=== PATIENT | female | born 1955 | race Caucasian/White ===

== ENCOUNTER 2019-09-01 11:03 | Inpatient (IN) | payer MEDICAID ==
[~2019-09-01] VITALS: Ht 152.4 cm; Wt 61.4 kg
[2019-09-01] MEDS ORDERED: FURO80 PO (11:45)
[2019-09-01] MEDS ORDERED: OLAN10TA3 PO (11:45)
[2019-09-01] MEDS ORDERED: TRAZ150 PO (11:45)
[2019-09-01 12:34] LABS: BASOPHILS % (AUTO) 1.7 % (0.0-2.0); EOSINOPHILS % (AUTO) 2.8 % (1.0-6.0); HEMATOCRIT 33.6 % (36-46); LYMPHOCYTES % (AUTO) 39.3 % (22.0-44.0); MEAN CORPUSCULAR HEMOGLOBIN 33.1 pg (26.0-34.0); MEAN CORPUSCULAR HGB CONC 32.6 G/dL (31.0-37.0); MEAN CORPUSCULAR VOLUME 101 fL (80-100); MONOCYTES # (AUTO) 0.5 K/uL (0.1-1.0); MONOCYTES % (AUTO) 8.8 % (2.0-9.0); NEUTROPHILS # (AUTO) 2.5 K/uL (1.8-7.7); NEUTROPHILS % (AUTO) 47.4 % (40.0-70.0); PLATELET COUNT (AUTO) 363 K/uL (150-450); RED BLOOD CELL COUNT(AUTO) 3.31 MIL/uL (4.00-5.20); RED CELL DISTRIBUTION WIDTH 17.5 % (11.5-14.5)
[2019-09-01 12:52] LABS: ANION GAP 7 mmol/L (8-16); CALCIUM, TOTAL 8.8 mg/dL (8.8-10.5); CARBON DIOXIDE 27 mmol/L (22-29); CHLORIDE 109 mmol/L (98-107); CREATININE 0.48 mg/dL (0.60-1.30); GLOMERULAR FILTR. RATE CALC > 60 mL/min (>60); GLUCOSE,RANDOM 79 mg/dL (70-110); SODIUM SERUM 143 mmol/L (136-145); UREA NITROGEN, BLOOD 8 mg/dL (7-18)
[2019-09-01 12:58] LABS: ALANINE AMINOTRANSFERASE 33 U/L (12-78); ALBUMIN 2.8 g/dL (3.4-5.0); ALKALINE PHOSPHATASE 146 U/L (46-116); ASPARTATE AMINOTRANSFERASE 43 U/L (15-37); BILIRUBIN,TOTAL 0.2 mg/dL (0.1-1.0); TOTAL PROTEIN, SERUM 6.7 g/dL (6.4-8.2)
[2019-09-01] MEDS ORDERED: IBUPROFEN 600 MG TABLET PO ONE (14:15)
[2019-09-01] MEDS ORDERED: PENICILLIN V POTASSIUM 500 MG TABLET PO ONE (14:15)
[2019-09-01 15:04] LABS: AMPHET/METH SCREEN,URINE NEGATIVE (NEGATIVE); BARBITURATE SCREEN, URINE NEGATIVE (NEGATIVE); BENZODIAZEPINES SCREEN,URINE NEGATIVE (NEGATIVE); CANNABINOID SCREEN,URINE NEGATIVE (NEGATIVE); COCAINE SCREEN,URINE NEGATIVE (NEGATIVE); METHADONE SCREEN, URINE NEGATIVE (NEGATIVE); OPIATE SCREEN,URINE NEGATIVE (NEGATIVE)
[2019-09-01 15:22] LABS: PHENCYCLIDINE SCREEN,URINE NEGATIVE (NEGATIVE)
[2019-09-01] MEDS ORDERED: HALOPERIDOL 5 MG TABLET PO PRN (15:30)
[2019-09-01] MEDS: LORazepam 2 MG TABLET PO PRN (17:20)
[2019-09-01 17:53] VITALS: BP 142/65
[2019-09-01 17:56] VITALS: BP 142/65
[2019-09-01] MEDS ORDERED: IBUPROFEN 600 MG TABLET PO PRN (21:00)
[2019-09-01] MEDS ORDERED: BACITRACIN 28.4 GM OINTMENT TP PRN (21:00)
[2019-09-01] MEDS ORDERED: PETROLATUM,WHITE 28 GM JELLY TP PRN (21:00)
[2019-09-01] MEDS ORDERED: ALBUTEROL SULFATE HFA 90 MCG/PUFF 8 GM INHALER IH PRN (21:00)
[2019-09-01] MEDS ORDERED: BENZOCAINE/MENTHOL LOZENGE MM PRN (21:00)
[2019-09-01] MEDS ORDERED: CloNIDine HCL 0.1 MG TABLET PO PRN (21:00)
[2019-09-01] MEDS ORDERED: MAGNESIUM HYDROXIDE SUSPENSION 30 ML UDCUP PO PRN (21:00)
[2019-09-01] MEDS ORDERED: MAG HYDROX/AL HYDROX/SIMETH ES 30 ML SUSPENSION UDCUP PO PRN (21:00)
[2019-09-01] MEDS ORDERED: ONDANSETRON HCL 4 MG TABLET PO PRN (21:00)
[2019-09-01 21:06] VITALS: BP 100/60
[2019-09-02] MEDS: LOPERAMIDE HCL 2 MG CAPSULE PO PRN ×4 (00:28→16:50)
[2019-09-02] MEDS: ZOLPIDEM TARTRATE 10 MG TABLET PO PRN ×2 (00:28→22:44)
[2019-09-02] MEDS ORDERED: INFLUENZA VIRUS VACCINE QVS 2019-20 (3YR+)/PF 60 MCG/0.5 ML SYRINGE IM ONE (00:45)
[2019-09-02 02:09] VITALS: BP 118/70
[2019-09-02 08:17] VITALS: BP 118/71
[2019-09-02] MEDS: LORazepam 2 MG TABLET PO PRN ×4 (08:26→21:22)
[2019-09-02] MEDS: OMEPRAZOLE 20 MG CAPSULE PO SCH (08:27)
[2019-09-02] MEDS ORDERED: DOCUSATE SODIUM 100 MG CAPSULE PO PRN (09:00)
[2019-09-02] MEDS ORDERED: FUROSEMIDE 80 MG TABLET PO SCH (09:00)
[2019-09-02] MEDS ORDERED: DOCUSATE SODIUM 100 MG CAPSULE PO SCH (09:00)
[2019-09-02] MEDS: NICOTINE 21 MG/24 HOUR PATCH TD SCH (09:33)
[2019-09-02] MEDS: ACETAMINOPHEN 325 MG TABLET PO PRN ×2 (09:34→16:50)
[2019-09-02] MEDS ORDERED: FUROSEMIDE 40 MG TABLET PO SCH (09:55)
[2019-09-02 10:03] VITALS: BP 118/71
[2019-09-02] MEDS: FUROSEMIDE 40 MG TABLET PO SCH ×2 (12:48→16:50)
[2019-09-02 14:38] VITALS: BP 110/72
[2019-09-02 18:03] VITALS: BP 116/76
[2019-09-02] MEDS: TraZODone HCL 150 MG TABLET PO SCH (21:03)
[2019-09-02] MEDS: OLANZapine 10 MG TABLET PO SCH (21:03)
[2019-09-03] MEDS: LORazepam 2 MG TABLET PO PRN ×5 (03:07→23:16)
[2019-09-03 03:54] VITALS: BP 112/74
[2019-09-03] MEDS: OMEPRAZOLE 20 MG CAPSULE PO SCH (08:58)
[2019-09-03] MEDS: FUROSEMIDE 40 MG TABLET PO SCH ×2 (08:58→17:41)
[2019-09-03] MEDS: NICOTINE 21 MG/24 HOUR PATCH TD SCH (08:59)
[2019-09-03 16:11] VITALS: BP 110/64
[2019-09-03] MEDS: LOPERAMIDE HCL 2 MG CAPSULE PO PRN (17:36)
[2019-09-03] MEDS: TraZODone HCL 150 MG TABLET PO SCH (21:00)
[2019-09-03] MEDS: ZOLPIDEM TARTRATE 10 MG TABLET PO PRN (21:51)
[2019-09-03] MEDS: OLANZapine 10 MG TABLET PO SCH (21:51)
[2019-09-04 05:20] VITALS: BP 100/62
[2019-09-04] MEDS: ACETAMINOPHEN 325 MG TABLET PO PRN (06:54)
[2019-09-04 08:10] VITALS: BP 120/67
[2019-09-04] MEDS: NICOTINE 21 MG/24 HOUR PATCH TD SCH (09:37)
[2019-09-04] MEDS: OMEPRAZOLE 20 MG CAPSULE PO SCH (09:37)
[2019-09-04] MEDS: LORazepam 2 MG TABLET PO PRN ×2 (09:37→13:41)
[2019-09-04] MEDS: FUROSEMIDE 40 MG TABLET PO SCH ×2 (09:37→16:45)
[2019-09-04] MEDS ORDERED: OLAN10TA3 PO (16:32)
[2019-09-04 16:33] VITALS: BP 126/71
[2019-09-04] MEDS ORDERED: FURO40 PO (16:36)
[2019-09-04] MEDS ORDERED: OMEP20 PO (16:37)
[2019-09-04] MEDS: LOPERAMIDE HCL 2 MG CAPSULE PO PRN (16:45)
== END 2019-09-04 17:32 | disposition home or self-care (01) | DRG 750 ==
LOC: EMS 11:06 → B2S 16:03 → B3A 16:56
PROVIDERS: ADMIT Psychiatry & Neurology Psychiatry; ATTEND Psychiatry & Neurology Psychiatry
DX: F25.9 Schizoaffective disorder, unspecified (principal); R45.851 Suicidal ideations; F31.9 Bipolar disorder, unspecified; F10.10 Alcohol abuse, uncomplicated; F41.9 Anxiety disorder, unspecified; G47.00 Insomnia, unspecified; F17.210 Nicotine dependence, cigarettes, uncomplicated; K59.00 Constipation, unspecified; S01.511A Laceration without foreign body of lip, initial encounter; W19.XXXA Unspecified fall, initial encounter; Y93.89 Activity, other specified; Y92.89 Other specified places as the place of occurrence of the external cause; Y99.8 Other external cause status
CPT/HCPCS: 70450; G0480

== ENCOUNTER 2019-09-15 21:18 | Emergency (ER) | payer MEDICAID ==
[~2019-09-15] VITALS: Ht 154.9 cm; Wt 54.5 kg
[~2019-09-15 21:18] MED LIST: FURO40 PO; OLAN10TA3 PO; OMEP20 PO; TRAZ150 PO
[2019-09-16] MEDS ORDERED: LIDOCAINE 5% TRANSDERMAL PATCH TD ONE (00:15)
[2019-09-16] MEDS ORDERED: ACETAMINOPHEN 325 MG TABLET PO ONE (00:15)
[2019-09-16] MEDS ORDERED: ASPIRIN 325 MG TABLET PO ONE (00:15)
[2019-09-16] MEDS ORDERED: GABAPENTIN 100 MG CAPSULE PO ONE (00:15)
[2019-09-16 00:46] LABS: BASOPHILS % (AUTO) 0.7 % (0.0-2.0); EOSINOPHILS % (AUTO) 5.6 % (1.0-6.0); HEMATOCRIT 27.2 % (36-46); HEMOGLOBIN 8.7 g/dL (12.0-16.0); LYMPHOCYTES # (AUTO) 1.8 K/uL (1.0-4.8); LYMPHOCYTES % (AUTO) 22.3 % (22.0-44.0); MEAN CORPUSCULAR HEMOGLOBIN 30.8 pg (26.0-34.0); MEAN CORPUSCULAR HGB CONC 31.9 G/dL (31.0-37.0); MEAN CORPUSCULAR VOLUME 97 fL (80-100); MONOCYTES # (AUTO) 0.5 K/uL (0.1-1.0); MONOCYTES % (AUTO) 6.5 % (2.0-9.0); NEUTROPHILS # (AUTO) 5.2 K/uL (1.8-7.7); NEUTROPHILS % (AUTO) 64.9 % (40.0-70.0); PLATELET COUNT (AUTO) 272 K/uL (150-450); RED BLOOD CELL COUNT(AUTO) 2.81 MIL/uL (4.00-5.20); RED CELL DISTRIBUTION WIDTH 18.1 % (11.5-14.5)
[2019-09-16 00:53] LABS: ANION GAP 8 mmol/L (8-16); CALCIUM, TOTAL 8.4 mg/dL (8.8-10.5); CARBON DIOXIDE 25 mmol/L (22-29); CHLORIDE 109 mmol/L (98-107); CREATININE 0.74 mg/dL (0.60-1.30); GLOMERULAR FILTR. RATE CALC > 60 mL/min (>60); GLUCOSE,RANDOM 123 mg/dL (70-110); POTASSIUM 3.8 mmol/L (3.5-5.1); SODIUM SERUM 142 mmol/L (136-145); UREA NITROGEN, BLOOD 9 mg/dL (7-18)
[2019-09-16 01:00] LABS: ALANINE AMINOTRANSFERASE 26 U/L (12-78); ALBUMIN 2.7 g/dL (3.4-5.0); ALKALINE PHOSPHATASE 124 U/L (46-116); ASPARTATE AMINOTRANSFERASE 36 U/L (15-37); BILIRUBIN,TOTAL 0.1 mg/dL (0.1-1.0)
[2019-09-16 01:01] LABS: B-TYPE NATRIURETIC PEPTIDE 215 pg/mL (0-100)
[2019-09-16 02:16] VITALS: BP 142/87
== END 2019-09-16 02:21 | disposition home or self-care (01) ==
LOC: EMS 21:18
DX: R07.9 Chest pain, unspecified (principal); F31.9 Bipolar disorder, unspecified; F17.210 Nicotine dependence, cigarettes, uncomplicated; Z79.899 Other long term (current) drug therapy
CPT/HCPCS: 93005

== ENCOUNTER 2019-09-20 20:16 | Inpatient (IN) | payer MEDICAID ==
[~2019-09-20] VITALS: Ht 152.4 cm; Wt 60.1 kg
[2019-09-20 22:35] LABS: BASOPHILS % (AUTO) 0.5 % (0.0-2.0); EOSINOPHILS % (AUTO) 2.8 % (1.0-6.0); HEMATOCRIT 29.4 % (36-46); HEMOGLOBIN 9.6 g/dL (12.0-16.0); LYMPHOCYTES # (AUTO) 1.9 K/uL (1.0-4.8); LYMPHOCYTES % (AUTO) 17.4 % (22.0-44.0); MEAN CORPUSCULAR HEMOGLOBIN 30.8 pg (26.0-34.0); MEAN CORPUSCULAR HGB CONC 32.8 G/dL (31.0-37.0); MEAN CORPUSCULAR VOLUME 94 fL (80-100); NEUTROPHILS # (AUTO) 7.7 K/uL (1.8-7.7); NEUTROPHILS % (AUTO) 70.3 % (40.0-70.0); PLATELET COUNT (AUTO) 322 K/uL (150-450); RED BLOOD CELL COUNT(AUTO) 3.13 MIL/uL (4.00-5.20); RED CELL DISTRIBUTION WIDTH 18.5 % (11.5-14.5)
[2019-09-20] MEDS ORDERED: ATOR20TA86 PO (22:37)
[2019-09-20] MEDS ORDERED: GABA-531 PO ×2 (22:37)
[2019-09-20] MEDS ORDERED: IBUP-1506 PO (22:37)
[2019-09-20] MEDS ORDERED: HYD25 PO (22:37)
[2019-09-20 22:50] LABS: ALANINE AMINOTRANSFERASE 20 U/L (12-78); ALBUMIN 3.3 g/dL (3.4-5.0); ALKALINE PHOSPHATASE 141 U/L (46-116); ANION GAP 5 mmol/L (8-16); ASPARTATE AMINOTRANSFERASE 16 U/L (15-37); BILIRUBIN,TOTAL 0.3 mg/dL (0.1-1.0); CALCIUM, TOTAL 8.6 mg/dL (8.8-10.5); CARBON DIOXIDE 32 mmol/L (22-29); CHLORIDE 99 mmol/L (98-107); CREATININE 0.68 mg/dL (0.60-1.30); GLOMERULAR FILTR. RATE CALC > 60 mL/min (>60); GLUCOSE,RANDOM 103 mg/dL (70-110); POTASSIUM 3.3 mmol/L (3.5-5.1); SODIUM SERUM 136 mmol/L (136-145); TOTAL PROTEIN, SERUM 7.1 g/dL (6.4-8.2); UREA NITROGEN, BLOOD 13 mg/dL (7-18)
[2019-09-20 23:14] LABS: AMPHET/METH SCREEN,URINE NEGATIVE (NEGATIVE); BARBITURATE SCREEN, URINE NEGATIVE (NEGATIVE); BENZODIAZEPINES SCREEN,URINE NEGATIVE (NEGATIVE); CANNABINOID SCREEN,URINE NEGATIVE (NEGATIVE); COCAINE SCREEN,URINE NEGATIVE (NEGATIVE); METHADONE SCREEN, URINE NEGATIVE (NEGATIVE); OPIATE SCREEN,URINE NEGATIVE (NEGATIVE); PHENCYCLIDINE SCREEN,URINE NEGATIVE (NEGATIVE)
[2019-09-21] MEDS ORDERED: GABAPENTIN 300 MG CAPSULE PO ONE (01:00)
[2019-09-21] MEDS: LORazepam 2 MG TABLET PO PRN ×4 (01:06→23:52)
[2019-09-21] MEDS: HALOPERIDOL 5 MG TABLET PO PRN ×3 (01:06→23:53)
[2019-09-21] MEDS: ZOLPIDEM TARTRATE 10 MG TABLET PO PRN ×2 (01:06→20:05)
[2019-09-21 03:05] LABS: APPEARANCE,URINE CLEAR (CLEAR); BILIRUBIN,URINE NEGATIVE (NEGATIVE); GLUCOSE, URINE (UA) NEGATIVE (NEGATIVE); KETONES,URINE NEGATIVE (NEGATIVE); LEUKOCYTE ESTERASE ,URINE TRACE (NEGATIVE); NITRATE,URINE NEGATIVE (NEGATIVE); OCCULT BLOOD,URINE NEGATIVE (NEGATIVE); PH,URINE 6.5 (5.0-8.0); PROTEIN,URINE NEGATIVE (NEGATIVE); UROBILINOGEN,URINE 0.2 mg/dL (<=1.0)
[2019-09-21 03:11] LABS: BACTERIA,URINE None Seen /HPF (None Seen); RBC,URINE None Seen /HPF (0-2); SQUAMOUS EPITHELIAL CELL,UR Rare /LPF (None Seen)
[2019-09-21 03:23] VITALS: BP 124/79
[2019-09-21] MEDS ORDERED: LOPERAMIDE HCL 2 MG CAPSULE PO PRN (08:15)
[2019-09-21] MEDS ORDERED: CloNIDine HCL 0.1 MG TABLET PO PRN (08:15)
[2019-09-21] MEDS ORDERED: ONDANSETRON HCL 4 MG TABLET PO PRN (08:15)
[2019-09-21] MEDS ORDERED: BACITRACIN 28.4 GM OINTMENT TP PRN (08:15)
[2019-09-21] MEDS ORDERED: ACETAMINOPHEN 325 MG TABLET PO PRN (08:15)
[2019-09-21] MEDS ORDERED: PETROLATUM,WHITE 28 GM JELLY TP PRN (08:15)
[2019-09-21] MEDS ORDERED: ALBUTEROL SULFATE HFA 90 MCG/PUFF 8 GM INHALER IH PRN (08:15)
[2019-09-21] MEDS ORDERED: MAG HYDROX/AL HYDROX/SIMETH ES 30 ML SUSPENSION UDCUP PO PRN (08:15)
[2019-09-21] MEDS ORDERED: BENZOCAINE/MENTHOL LOZENGE MM PRN (08:15)
[2019-09-21] MEDS ORDERED: MAGNESIUM HYDROXIDE SUSPENSION 30 ML UDCUP PO PRN (08:15)
[2019-09-21] MEDS: GABAPENTIN 300 MG CAPSULE PO SCH ×3 (09:12→16:01)
[2019-09-21] MEDS: DOCUSATE SODIUM 100 MG CAPSULE PO SCH (09:12)
[2019-09-21] MEDS: FUROSEMIDE 20 MG TABLET PO SCH (09:13)
[2019-09-21] MEDS: OMEPRAZOLE 20 MG CAPSULE PO SCH (09:13)
[2019-09-21 09:21] VITALS: BP 134/70
[2019-09-21] MEDS: NICOTINE 21 MG/24 HOUR PATCH TD SCH (10:30)
[2019-09-21] MEDS: POTASSIUM CHLORIDE 20 MEQ ER TABLET PO SCH (16:01)
[2019-09-21 16:27] VITALS: BP 128/72
[2019-09-21] MEDS: IBUPROFEN 600 MG TABLET PO PRN (16:39)
[2019-09-21] MEDS: BACITRACIN 28.4 GM OINTMENT TP SCH (18:00)
[2019-09-21] MEDS: ATORVASTATIN CALCIUM 20 MG TABLET PO SCH (20:02)
[2019-09-21] MEDS: TraZODone HCL 150 MG TABLET PO SCH (21:48)
[2019-09-21] MEDS: OLANZapine 10 MG TABLET PO SCH (21:48)
[2019-09-22 01:30] VITALS: BP 128/77
[2019-09-22 08:50] LABS: CHOL/HDL RATIO 2.4 (3.9-5.7)
[2019-09-22] MEDS: GABAPENTIN 300 MG CAPSULE PO SCH ×3 (09:21→16:10)
[2019-09-22] MEDS: DOCUSATE SODIUM 100 MG CAPSULE PO SCH (09:21)
[2019-09-22] MEDS: FUROSEMIDE 20 MG TABLET PO SCH (09:21)
[2019-09-22] MEDS: POTASSIUM CHLORIDE 20 MEQ ER TABLET PO SCH (09:23)
[2019-09-22] MEDS: NICOTINE 21 MG/24 HOUR PATCH TD SCH (09:23)
[2019-09-22] MEDS: MULTIVITAMINS WITH IRON TABLET PO SCH (09:23)
[2019-09-22] MEDS: BACITRACIN 28.4 GM OINTMENT TP SCH ×2 (09:23→16:11)
[2019-09-22] MEDS: OMEPRAZOLE 20 MG CAPSULE PO SCH (09:23)
[2019-09-22 12:01] VITALS: BP 124/65
[2019-09-22] MEDS: MUPIROCIN CALCIUM 2% 22 GM OINTMENT NASAL SCH (16:10)
[2019-09-22] MEDS: IBUPROFEN 600 MG TABLET PO PRN (16:26)
[2019-09-22 16:31] VITALS: BP 95/60
[2019-09-22 17:00] VITALS: BP 133/88
[2019-09-22] MEDS: LORazepam 2 MG TABLET PO PRN ×2 (17:16→21:51)
[2019-09-22] MEDS: TraZODone HCL 150 MG TABLET PO SCH (20:24)
[2019-09-22] MEDS: OLANZapine 10 MG TABLET PO SCH (20:24)
[2019-09-22] MEDS: ATORVASTATIN CALCIUM 20 MG TABLET PO SCH (20:24)
[2019-09-23] MEDS: ZOLPIDEM TARTRATE 10 MG TABLET PO PRN (00:11)
[2019-09-23] MEDS: HALOPERIDOL 5 MG TABLET PO PRN (00:12)
[2019-09-23] MEDS: MULTIVITAMINS WITH IRON TABLET PO SCH (08:13)
[2019-09-23] MEDS: GABAPENTIN 300 MG CAPSULE PO SCH ×2 (08:13→12:39)
[2019-09-23] MEDS: DOCUSATE SODIUM 100 MG CAPSULE PO SCH (08:13)
[2019-09-23] MEDS: FUROSEMIDE 20 MG TABLET PO SCH (08:13)
[2019-09-23] MEDS: OMEPRAZOLE 20 MG CAPSULE PO SCH (08:13)
[2019-09-23] MEDS: NICOTINE 21 MG/24 HOUR PATCH TD SCH (08:15)
[2019-09-23] MEDS: BACITRACIN 28.4 GM OINTMENT TP SCH (08:15)
[2019-09-23] MEDS: MUPIROCIN CALCIUM 2% 22 GM OINTMENT NASAL SCH (08:16)
[2019-09-23 11:53] VITALS: BP 102/68
[2019-09-23] MEDS: IBUPROFEN 600 MG TABLET PO PRN (11:53)
[2019-09-23] MEDS: LORazepam 2 MG TABLET PO PRN (12:40)
[2019-09-23 13:05] VITALS: BP 102/68
[2019-09-23] MEDS ORDERED: DOCU-275 PO (13:48)
[2019-09-23] MEDS ORDERED: MULT-1239 PO (13:48)
[2019-09-23] MEDS ORDERED: BACI500P3 TP (13:48)
[2019-09-23] MEDS ORDERED: MUPI15CR12 TP (13:48)
== END 2019-09-23 15:51 | disposition home or self-care (01) | DRG 885 ==
LOC: EMS 20:16 → 5N 09-21 01:30 → UNDOADMIN 09-21 01:30 → 3EI 09-21 01:30
PROVIDERS: ADMIT Psychiatry & Neurology Psychiatry; ATTEND Psychiatry & Neurology Psychiatry
DX: F25.9 Schizoaffective disorder, unspecified (principal); R45.851 Suicidal ideations; F41.9 Anxiety disorder, unspecified; G47.00 Insomnia, unspecified; I10 Essential (primary) hypertension; K59.00 Constipation, unspecified; F17.210 Nicotine dependence, cigarettes, uncomplicated; F32.9 Major depressive disorder, single episode, unspecified; Z79.899 Other long term (current) drug therapy; Z22.322 Carrier or suspected carrier of Methicillin resistant Staphylococcus aureus
CPT/HCPCS: 84132; 87081; G0480

== ENCOUNTER 2019-11-14 17:15 | Emergency (ER) | payer MEDICAID ==
[~2019-11-14] VITALS: Ht 152.4 cm; Wt 59.1 kg
[~2019-11-14 17:15] MED LIST changes: +ATOR20TA86 PO; +BACI500P3 TP; +DOCU-275 PO; +GABA-1181 PO; +MULT-1239 PO; +MUPI15CR12 TP
[2019-11-14] MEDS ORDERED: LORazepam 1 MG TABLET PO ONE (17:45)
[2019-11-14] MEDS ORDERED: FURO20 PO (17:49)
[2019-11-14 18:08] LABS: BASOPHILS % (AUTO) 0.7 % (0.0-2.0); EOSINOPHILS % (AUTO) 2.7 % (1.0-6.0); HEMOGLOBIN 11.3 g/dL (12.0-16.0); LYMPHOCYTES # (AUTO) 1.4 K/uL (1.0-4.8); LYMPHOCYTES % (AUTO) 23.5 % (22.0-44.0); MEAN CORPUSCULAR HGB CONC 32.4 G/dL (31.0-37.0); MEAN CORPUSCULAR VOLUME 86 fL (80-100); MONOCYTES # (AUTO) 0.5 K/uL (0.1-1.0); MONOCYTES % (AUTO) 8.4 % (2.0-9.0); NEUTROPHILS # (AUTO) 3.9 K/uL (1.8-7.7); NEUTROPHILS % (AUTO) 64.7 % (40.0-70.0); PLATELET COUNT (AUTO) 263 K/uL (150-450); RED BLOOD CELL COUNT(AUTO) 4.06 MIL/uL (4.00-5.20)
[2019-11-14 18:19] LABS: ANION GAP 14 mmol/L (8-16); CALCIUM, TOTAL 9.4 mg/dL (8.8-10.5); CARBON DIOXIDE 20 mmol/L (22-29); CHLORIDE 104 mmol/L (98-107); CREATININE 0.69 mg/dL (0.60-1.30); GLOMERULAR FILTR. RATE CALC > 60 mL/min (>60); GLUCOSE,RANDOM 101 mg/dL (70-110); POTASSIUM 3.2 mmol/L (3.5-5.1); SODIUM SERUM 138 mmol/L (136-145); UREA NITROGEN, BLOOD 7 mg/dL (7-18)
[2019-11-14 18:21] LABS: AMPHET/METH SCREEN,URINE NEGATIVE (NEGATIVE); BARBITURATE SCREEN, URINE NEGATIVE (NEGATIVE); BENZODIAZEPINES SCREEN,URINE NEGATIVE (NEGATIVE); CANNABINOID SCREEN,URINE NEGATIVE (NEGATIVE); COCAINE SCREEN,URINE NEGATIVE (NEGATIVE); METHADONE SCREEN, URINE NEGATIVE (NEGATIVE); OPIATE SCREEN,URINE NEGATIVE (NEGATIVE)
[2019-11-14 18:22] LABS: PHENCYCLIDINE SCREEN,URINE NEGATIVE (NEGATIVE)
[2019-11-14 18:24] LABS: ALANINE AMINOTRANSFERASE 18 U/L (12-78); ALBUMIN 3.8 g/dL (3.4-5.0); ALKALINE PHOSPHATASE 86 U/L (46-116); ASPARTATE AMINOTRANSFERASE 18 U/L (15-37); BILIRUBIN,TOTAL 0.3 mg/dL (0.1-1.0); TOTAL PROTEIN, SERUM 6.9 g/dL (6.4-8.2)
[2019-11-14] MEDS ORDERED: POTASSIUM CHLORIDE 20 MEQ ER TABLET PO ONE ×2 (19:00→19:45)
[2019-11-14 20:00] VITALS: BP 127/63
== END 2019-11-14 20:35 | disposition home or self-care (01) ==
LOC: EMS 17:16
DX: F41.9 Anxiety disorder, unspecified (principal); F31.9 Bipolar disorder, unspecified; F17.210 Nicotine dependence, cigarettes, uncomplicated; I10 Essential (primary) hypertension; Z79.899 Other long term (current) drug therapy
CPT/HCPCS: 36415; 80053; 80307; 85025; 99284; G0480

== ENCOUNTER 2022-03-19 06:52 | Emergency (ER) | payer MEDICAID ==
[~2022-03-19] VITALS: Ht 152.4 cm; Wt 60.2 kg
[~2022-03-19 06:52] MED LIST changes: -DOCU-275 PO; +DOCU-385 PO; +FURO20 PO; -FURO40 PO; -MUPI15CR12 TP; -OLAN10TA3 PO; +OLAN10TA74 PO; -TRAZ150 PO; +TRAZ150T80 PO
[2022-03-19] MEDS ORDERED: CHLO10TA19 PO (07:30)
[2022-03-19] MEDS ORDERED: LEVO125 PO (07:30)
[2022-03-19] MEDS ORDERED: CITA-144 PO (07:30)
[2022-03-19 08:10] LABS: BASOPHILS % (AUTO) 0.7 % (0.0-2.0); EOSINOPHILS % (AUTO) 1.5 % (1.0-6.0); HEMATOCRIT 43.4 % (36-46); HEMOGLOBIN 14.8 g/dL (12.0-16.0); LYMPHOCYTES # (AUTO) 1.2 K/uL (1.0-4.8); LYMPHOCYTES % (AUTO) 24.2 % (22.0-44.0); MEAN CORPUSCULAR HEMOGLOBIN 32.7 pg (26.0-34.0); MEAN CORPUSCULAR VOLUME 96 fL (80-100); MONOCYTES # (AUTO) 0.3 K/uL (0.1-1.0); MONOCYTES % (AUTO) 5.3 % (2.0-9.0); NEUTROPHILS # (AUTO) 3.5 K/uL (1.8-7.7); NEUTROPHILS % (AUTO) 68.3 % (40.0-70.0); PLATELET COUNT (AUTO) 235 K/uL (150-450); RED BLOOD CELL COUNT(AUTO) 4.51 MIL/uL (4.00-5.20); RED CELL DISTRIBUTION WIDTH 16.3 % (11.5-14.5)
[2022-03-19 08:50] LABS: ALANINE AMINOTRANSFERASE 15 U/L (12-78); ALBUMIN 3.1 g/dL (3.4-5.0); ALKALINE PHOSPHATASE 143 U/L (46-116); ASPARTATE AMINOTRANSFERASE 38 U/L (15-37); BILIRUBIN,TOTAL 0.4 mg/dL (0.1-1.0); CARBON DIOXIDE 25 mmol/L (22-29); CHLORIDE 99 mmol/L (98-107); GLUCOSE,RANDOM 101 mg/dL (70-110); TOTAL PROTEIN, SERUM 6.4 g/dL (6.4-8.2); UREA NITROGEN, BLOOD 5 mg/dL (7-18)
[2022-03-19 08:55] LABS: ANION GAP 13 mmol/L (8-16); CALCIUM, TOTAL 8.4 mg/dL (8.8-10.5); SODIUM SERUM 137 mmol/L (136-145)
[2022-03-19 09:02] LABS: GLOMERULAR FILTR. RATE CALC > 60 mL/min (>60); POTASSIUM 2.8 mmol/L (3.5-5.1)
[2022-03-19] MEDS: POTASSIUM CHLORIDE 20 MEQ ER TABLET PO ONE (09:14)
[2022-03-19 09:34] LABS: APPEARANCE,URINE CLEAR (CLEAR); BILIRUBIN,URINE NEGATIVE (NEGATIVE); GLUCOSE, URINE (UA) NEGATIVE (NEGATIVE); KETONES,URINE NEGATIVE (NEGATIVE); LEUKOCYTE ESTERASE ,URINE SMALL (NEGATIVE); NITRATE,URINE NEGATIVE (NEGATIVE); OCCULT BLOOD,URINE LARGE (NEGATIVE); PH,URINE 6.5 (5.0-8.0); PROTEIN,URINE NEGATIVE (NEGATIVE); SPECIFIC GRAVITIY, URINE 1.005 (1.003-1.030); UROBILINOGEN,URINE <=1.0 mg/dL (<=1.0)
[2022-03-19 09:59] LABS: BACTERIA,URINE Moderate /HPF (None Seen); SQUAMOUS EPITHELIAL CELL,UR Moderate /LPF (None Seen)
[2022-03-19 11:50] VITALS: BP 135/83
== END 2022-03-19 12:51 | disposition home or self-care (01) ==
LOC: EMS 06:54
DX: R11.2 Nausea with vomiting, unspecified (principal); E87.6 Hypokalemia; F10.20 Alcohol dependence, uncomplicated; F31.9 Bipolar disorder, unspecified; I10 Essential (primary) hypertension; E03.9 Hypothyroidism, unspecified; F17.210 Nicotine dependence, cigarettes, uncomplicated; Y90.4 Blood alcohol level of 80-99 mg/100 ml
CPT/HCPCS: 99285; 80053; 81001; 84484; 85025; 85610; 85730; 36415; 87086; 87186; 93005; G0480

== ENCOUNTER 2022-09-22 09:39 | Inpatient (IN) | payer MEDICAID ==
[~2022-09-22] VITALS: Ht 152.4 cm; Wt 56.2 kg
[~2022-09-22 09:39] MED LIST changes: -BACI500P3 TP; +CHLO10TA19 PO; +CITA-144 PO; +LEVO125 PO
[2022-09-22 10:51] LABS: GLUCOMETER DEV NAME(LOC) POC.BV
[2022-09-22 11:47] VITALS: BP 128/80
[2022-09-22] MEDS: LORazepam 1 MG TABLET PO PRN (14:57)
[2022-09-22] MEDS ORDERED: NICOTINE 21 MG/24 HOUR PATCH TD ONE (16:00)
[2022-09-22] MEDS ORDERED: IBUPROFEN 600 MG TABLET PO PRN (17:15)
[2022-09-22] MEDS ORDERED: ACETAMINOPHEN 325 MG TABLET PO PRN (17:15)
[2022-09-22] MEDS ORDERED: BENZOCAINE/MENTHOL LOZENGE PO PRN (17:15)
[2022-09-22] MEDS ORDERED: CloNIDine HCL 0.1 MG TABLET PO PRN (17:15)
[2022-09-22] MEDS ORDERED: DOCUSATE SODIUM 100 MG CAPSULE PO PRN (17:15)
[2022-09-22] MEDS ORDERED: MAGNESIUM HYDROXIDE SUSPENSION 30 ML UDCUP PO PRN (17:15)
[2022-09-22] MEDS ORDERED: ONDANSETRON HCL 4 MG TABLET PO PRN (17:15)
[2022-09-22] MEDS ORDERED: PETROLATUM,WHITE 28 GM JELLY TP PRN (17:15)
[2022-09-22] MEDS ORDERED: OMEPRAZOLE 20 MG CAPSULE PO PRN (17:15)
[2022-09-22] MEDS ORDERED: BACITRACIN 28 GM OINTMENT TP PRN (17:15)
[2022-09-22] MEDS ORDERED: MAG HYDROX/AL HYDROX/SIMETH ES 30 ML SUSPENSION UDCUP PO PRN (17:15)
[2022-09-22] MEDS ORDERED: LOPERAMIDE HCL 2 MG CAPSULE PO PRN (17:15)
[2022-09-22] MEDS ORDERED: ALBUTEROL SULFATE HFA 90 MCG/PUFF 8 GM INHALER IH PRN (17:15)
[2022-09-22] MEDS ORDERED: INFLUENZA VIRUS VACCINE QVS 2022-23 (6MO+)/PF 60 MCG/0.5 ML SYRINGE IM. ONE (19:00)
[2022-09-22] MEDS: TraZODone HCL 50 MG TABLET PO SCH (20:21)
[2022-09-22] MEDS: ZOLPIDEM TARTRATE 10 MG TABLET PO PRN (20:21)
[2022-09-22] MEDS: OLANZapine 10 MG TABLET PO SCH (20:21)
[2022-09-22] MEDS: ATORVASTATIN CALCIUM 20 MG TABLET PO SCH (20:22)
[2022-09-22 20:26] VITALS: BP 111/69
[2022-09-23] MEDS: LEVOTHYROXINE SODIUM 125 MCG TABLET PO SCH (06:27)
[2022-09-23 07:33] LABS: BASOPHILS % (AUTO) 0.7 % (0.0-2.0); EOSINOPHILS % (AUTO) 3.7 % (1.0-6.0); HEMATOCRIT 42.2 % (36-46); HEMOGLOBIN 14.3 g/dL (12.0-16.0); LYMPHOCYTES % (AUTO) 29.6 % (22.0-44.0); MEAN CORPUSCULAR HEMOGLOBIN 31.4 pg (26.0-34.0); MEAN CORPUSCULAR VOLUME 92 fL (80-100); MONOCYTES # (AUTO) 0.5 K/uL (0.1-1.0); MONOCYTES % (AUTO) 6.9 % (2.0-9.0); NEUTROPHILS # (AUTO) 3.9 K/uL (1.8-7.7); NEUTROPHILS % (AUTO) 59.1 % (40.0-70.0); PLATELET COUNT (AUTO) 190 K/uL (150-450); RED BLOOD CELL COUNT(AUTO) 4.57 MIL/uL (4.00-5.20); RED CELL DISTRIBUTION WIDTH 16.8 % (11.5-14.5)
[2022-09-23 07:56] LABS: ALANINE AMINOTRANSFERASE 10 U/L (12-78); ALKALINE PHOSPHATASE 71 U/L (46-116); ANION GAP 5 mmol/L (8-16); ASPARTATE AMINOTRANSFERASE 13 U/L (15-37); BILIRUBIN,TOTAL 0.4 mg/dL (0.1-1.0); CALCIUM, TOTAL 8.8 mg/dL (8.8-10.5); CARBON DIOXIDE 30 mmol/L (22-29); CHLORIDE 112 mmol/L (98-107); CHOL/HDL RATIO 4.8 (3.9-5.7); CHOLESTEROL 267 mg/dL (131-200); CREATININE 0.74 mg/dL (0.60-1.30); FREE T4 (FREE THYROXINE) 1.16 ng/dL (0.76-1.46); GLOMERULAR FILTR. RATE CALC > 60 mL/min (>60); GLUCOSE,RANDOM 103 mg/dL (70-110); HDL CHOLESTEROL 56 mg/dL (40-60); LDL CHOL (CALC.) 184 mg/dL (0-130); POTASSIUM 3.5 mmol/L (3.5-5.1); SODIUM SERUM 147 mmol/L (136-145); THYROID STIMULATING HORMONE 0.25 uIU/mL (0.36-3.74); TOTAL PROTEIN, SERUM 5.7 g/dL (6.4-8.2); TRIGLYCERIDES 135 mg/dL (15-150); UREA NITROGEN, BLOOD 12 mg/dL (7-18)
[2022-09-23] MEDS: LORazepam 1 MG TABLET PO PRN ×3 (08:07→23:35)
[2022-09-23] MEDS: GABAPENTIN 300 MG CAPSULE PO SCH ×3 (08:07→16:22)
[2022-09-23 08:08] VITALS: BP 111/66
[2022-09-23] MEDS: FUROSEMIDE 20 MG TABLET PO SCH (08:08)
[2022-09-23] MEDS: NICOTINE 21 MG/24 HOUR PATCH TD PRN (17:53)
[2022-09-23 20:11] VITALS: BP 137/89
[2022-09-23] MEDS: TraZODone HCL 50 MG TABLET PO SCH (20:37)
[2022-09-23] MEDS: ATORVASTATIN CALCIUM 20 MG TABLET PO SCH (20:37)
[2022-09-23] MEDS: OLANZapine 10 MG TABLET PO SCH (20:37)
[2022-09-23] MEDS: ZOLPIDEM TARTRATE 10 MG TABLET PO PRN (20:37)
[2022-09-24] MEDS: LEVOTHYROXINE SODIUM 125 MCG TABLET PO SCH (06:19)
[2022-09-24] MEDS: GABAPENTIN 300 MG CAPSULE PO SCH ×3 (08:01→16:07)
[2022-09-24] MEDS: FUROSEMIDE 20 MG TABLET PO SCH (08:01)
[2022-09-24] MEDS: LORazepam 1 MG TABLET PO PRN ×3 (08:05→22:16)
[2022-09-24 08:10] VITALS: BP 131/76
[2022-09-24 20:39] VITALS: BP 112/79
[2022-09-24] MEDS: ATORVASTATIN CALCIUM 20 MG TABLET PO SCH (21:07)
[2022-09-24] MEDS: ZOLPIDEM TARTRATE 10 MG TABLET PO PRN (21:08)
[2022-09-24] MEDS: OLANZapine 10 MG TABLET PO SCH (21:08)
[2022-09-24] MEDS: TraZODone HCL 50 MG TABLET PO SCH (21:08)
[2022-09-24 22:05] VITALS: BP 110/80
[2022-09-25] MEDS: LEVOTHYROXINE SODIUM 125 MCG TABLET PO SCH (06:24)
[2022-09-25 08:03] VITALS: BP 139/95
[2022-09-25] MEDS: FUROSEMIDE 20 MG TABLET PO SCH (08:05)
[2022-09-25] MEDS: LORazepam 1 MG TABLET PO PRN ×3 (08:05→20:25)
[2022-09-25] MEDS: GABAPENTIN 300 MG CAPSULE PO SCH ×3 (08:05→16:40)
[2022-09-25 20:01] VITALS: BP 104/61
[2022-09-25] MEDS: ATORVASTATIN CALCIUM 20 MG TABLET PO SCH (20:24)
[2022-09-25] MEDS: TraZODone HCL 50 MG TABLET PO SCH (20:24)
[2022-09-25] MEDS: ZOLPIDEM TARTRATE 10 MG TABLET PO PRN (20:25)
[2022-09-25] MEDS: OLANZapine 10 MG TABLET PO SCH (20:25)
[2022-09-26] MEDS: LEVOTHYROXINE SODIUM 125 MCG TABLET PO SCH (06:31)
[2022-09-26 07:58] VITALS: BP 117/78
[2022-09-26] MEDS: GABAPENTIN 300 MG CAPSULE PO SCH ×2 (08:05→12:12)
[2022-09-26] MEDS: FUROSEMIDE 20 MG TABLET PO SCH (08:05)
[2022-09-26] MEDS: LORazepam 1 MG TABLET PO PRN (08:05)
[2022-09-26 09:37] VITALS: BP 117/78
[2022-09-26] MEDS: NICOTINE 21 MG/24 HOUR PATCH TD PRN (11:03)
[2022-09-26] MEDS ORDERED: TRAZ-252 PO (13:20)
[2022-09-26] MEDS ORDERED: OLAN10TA74 PO (13:21)
== END 2022-09-26 15:34 | disposition home or self-care (01) | DRG 750 ==
LOC: B3A 11:00
PROVIDERS: ADMIT Psychiatry & Neurology Psychiatry; ATTEND Psychiatry & Neurology Psychiatry
DX: F25.9 Schizoaffective disorder, unspecified (principal); R45.851 Suicidal ideations; F10.90 Alcohol use, unspecified, uncomplicated; F32.9 Major depressive disorder, single episode, unspecified; F41.9 Anxiety disorder, unspecified; G47.00 Insomnia, unspecified; I10 Essential (primary) hypertension; K59.00 Constipation, unspecified; Z72.0 Tobacco use; F12.90 Cannabis use, unspecified, uncomplicated; Y90.9 Presence of alcohol in blood, level not specified; Z28.21 Immunization not carried out because of patient refusal; Z20.822 Contact with and (suspected) exposure to COVID-19
CPT/HCPCS: 80053; 80061; 84439; 84443; 85025; 86592

== ENCOUNTER 2022-11-14 12:44 | Inpatient (IN) | payer MEDICAID ==
[~2022-11-14] VITALS: Ht 152.4 cm; Wt 56.8 kg
[~2022-11-14 12:44] MED LIST changes: -CHLO10TA19 PO; -CITA-144 PO; -DOCU-385 PO; +TRAZ-252 PO; -TRAZ150T80 PO
[2022-11-14 13:56] LABS: BASOPHILS % (AUTO) 1.1 % (0.0-2.0); HEMATOCRIT 51.1 % (36-46); HEMOGLOBIN 16.6 g/dL (12.0-16.0); LYMPHOCYTES # (AUTO) 2.6 K/uL (1.0-4.8); LYMPHOCYTES % (AUTO) 26.9 % (22.0-44.0); MEAN CORPUSCULAR HEMOGLOBIN 31.2 pg (26.0-34.0); MEAN CORPUSCULAR HGB CONC 32.5 G/dL (31.0-37.0); MEAN CORPUSCULAR VOLUME 96 fL (80-100); MONOCYTES # (AUTO) 0.4 K/uL (0.1-1.0); NEUTROPHILS # (AUTO) 6.6 K/uL (1.8-7.7); PLATELET COUNT (AUTO) 282 K/uL (150-450); RED BLOOD CELL COUNT(AUTO) 5.33 MIL/uL (4.00-5.20); RED CELL DISTRIBUTION WIDTH 16.1 % (11.5-14.5)
[2022-11-14 14:14] LABS: ANION GAP 12 mmol/L (8-16); CALCIUM, TOTAL 8.6 mg/dL (8.8-10.5); CARBON DIOXIDE 26 mmol/L (22-29); CHLORIDE 108 mmol/L (98-107); CREATININE 0.88 mg/dL (0.60-1.30); GLOMERULAR FILTR. RATE CALC > 60 mL/min (>60); GLUCOSE,RANDOM 88 mg/dL (70-110); POTASSIUM 4.6 mmol/L (3.5-5.1); SODIUM SERUM 146 mmol/L (136-145); UREA NITROGEN, BLOOD 12 mg/dL (7-18)
[2022-11-14 14:28] LABS: ALANINE AMINOTRANSFERASE 15 U/L (12-78); ALBUMIN 3.6 g/dL (3.4-5.0); ALKALINE PHOSPHATASE 106 U/L (46-116); ASPARTATE AMINOTRANSFERASE 28 U/L (15-37); BILIRUBIN,TOTAL 0.2 mg/dL (0.1-1.0); TOTAL PROTEIN, SERUM 6.9 g/dL (6.4-8.2)
[2022-11-14] MEDS ORDERED: NICOTINE 21 MG/24 HOUR PATCH TD ONE (16:30)
[2022-11-14] MEDS ORDERED: LORazepam 2 MG/ML VIAL IM ONE (18:15)
[2022-11-14] MEDS ORDERED: DiphenhydrAMINE HCL 50 MG/ML VIAL IM ONE (18:15)
[2022-11-14] MEDS ORDERED: HALOPERIDOL LACTATE 5 MG/ML VIAL IM ONE (18:15)
[2022-11-14 18:27] LABS: COVID AG,FIA SOURCE NASOPHARYNGEAL
[2022-11-14] MEDS: ZOLPIDEM TARTRATE 10 MG TABLET PO PRN (20:39)
[2022-11-15] MEDS ORDERED: IBUPROFEN 600 MG TABLET PO PRN (05:30)
[2022-11-15] MEDS ORDERED: DOCUSATE SODIUM 100 MG CAPSULE PO PRN (05:30)
[2022-11-15] MEDS ORDERED: ACETAMINOPHEN 325 MG TABLET PO PRN (05:30)
[2022-11-15] MEDS ORDERED: OMEPRAZOLE 20 MG CAPSULE PO PRN (05:30)
[2022-11-15] MEDS ORDERED: PETROLATUM,WHITE 28 GM JELLY TP PRN (05:30)
[2022-11-15] MEDS ORDERED: MAGNESIUM HYDROXIDE SUSPENSION 30 ML UDCUP PO PRN (05:30)
[2022-11-15] MEDS ORDERED: BACITRACIN 28 GM OINTMENT TP PRN (05:30)
[2022-11-15] MEDS ORDERED: LOPERAMIDE HCL 2 MG CAPSULE PO PRN (05:30)
[2022-11-15] MEDS ORDERED: MAG HYDROX/AL HYDROX/SIMETH ES 30 ML SUSPENSION UDCUP PO PRN (05:30)
[2022-11-15] MEDS ORDERED: ALBUTEROL SULFATE HFA 90 MCG/PUFF 8 GM INHALER IH PRN (05:30)
[2022-11-15] MEDS ORDERED: ONDANSETRON HCL 4 MG TABLET PO PRN (05:30)
[2022-11-15] MEDS ORDERED: CloNIDine HCL 0.1 MG TABLET PO PRN (05:30)
[2022-11-15] MEDS: LEVOTHYROXINE SODIUM 125 MCG TABLET PO SCH (06:48)
[2022-11-15 08:06] VITALS: BP 116/69
[2022-11-15] MEDS: GABAPENTIN 300 MG CAPSULE PO SCH ×3 (08:09→15:52)
[2022-11-15] MEDS: FUROSEMIDE 20 MG TABLET PO SCH (08:09)
[2022-11-15] MEDS: MULTIVITAMINS WITH MINERALS, THERAPEUTIC TABLET PO SCH (08:10)
[2022-11-15] MEDS: NICOTINE 21 MG/24 HOUR PATCH TD PRN (08:56)
[2022-11-15] MEDS: HALOPERIDOL 5 MG TABLET PO PRN (08:58)
[2022-11-15] MEDS: LORazepam 2 MG TABLET PO PRN ×2 (11:34→16:47)
[2022-11-15 16:13] VITALS: BP 121/69
[2022-11-15] MEDS: ATORVASTATIN CALCIUM 20 MG TABLET PO SCH (20:28)
[2022-11-15] MEDS: OLANZapine 10 MG TABLET PO SCH (20:28)
[2022-11-15] MEDS: TraZODone HCL 50 MG TABLET PO SCH (20:28)
[2022-11-15] MEDS: ZOLPIDEM TARTRATE 10 MG TABLET PO PRN (23:23)
[2022-11-16] MEDS: LEVOTHYROXINE SODIUM 125 MCG TABLET PO SCH (06:06)
[2022-11-16] MEDS: LORazepam 2 MG TABLET PO PRN ×4 (07:31→19:43)
[2022-11-16] MEDS: NICOTINE 21 MG/24 HOUR PATCH TD PRN (08:00)
[2022-11-16] MEDS: THIAMINE 100 MG TABLET PO SCH (08:01)
[2022-11-16] MEDS: FOLIC ACID 1 MG TABLET PO SCH (08:01)
[2022-11-16] MEDS: FUROSEMIDE 20 MG TABLET PO SCH (08:01)
[2022-11-16] MEDS: GABAPENTIN 300 MG CAPSULE PO SCH ×3 (08:01→16:03)
[2022-11-16] MEDS: MULTIVITAMINS WITH MINERALS, THERAPEUTIC TABLET PO SCH (08:01)
[2022-11-16 08:25] VITALS: BP 141/86
[2022-11-16] MEDS: HALOPERIDOL 5 MG TABLET PO PRN (10:15)
[2022-11-16 10:27] LABS: APPEARANCE,URINE CLEAR (CLEAR); BILIRUBIN,URINE NEGATIVE (NEGATIVE); GLUCOSE, URINE (UA) NEGATIVE (NEGATIVE); LEUKOCYTE ESTERASE ,URINE MODERATE (NEGATIVE); NITRATE,URINE NEGATIVE (NEGATIVE); OCCULT BLOOD,URINE SMALL (NEGATIVE); PROTEIN,URINE NEGATIVE (NEGATIVE); SPECIFIC GRAVITIY, URINE 1.004 (1.003-1.030); UROBILINOGEN,URINE <=1.0 mg/dL (<=1.0)
[2022-11-16 10:33] LABS: BACTERIA,URINE Moderate /HPF (None Seen); SQUAMOUS EPITHELIAL CELL,UR Few /LPF (None Seen)
[2022-11-16 12:40] LABS: AMPHET/METH SCREEN,URINE NEGATIVE (NEGATIVE); BARBITURATE SCREEN, URINE NEGATIVE (NEGATIVE); BENZODIAZEPINES SCREEN,URINE NEGATIVE (NEGATIVE); CANNABINOID SCREEN,URINE POSITIVE (NEGATIVE); COCAINE SCREEN,URINE NEGATIVE (NEGATIVE); METHADONE SCREEN, URINE NEGATIVE (NEGATIVE); OPIATE SCREEN,URINE NEGATIVE (NEGATIVE); PHENCYCLIDINE SCREEN,URINE NEGATIVE (NEGATIVE)
[2022-11-16] MEDS ORDERED: CEPHALEXIN MONOHYDRATE 500 MG CAPSULE PO SCH (13:00)
[2022-11-16] MEDS: CEPHALEXIN MONOHYDRATE 500 MG CAPSULE PO SCH (16:03)
[2022-11-16 16:56] VITALS: BP 100/76
[2022-11-16] MEDS ORDERED: OLAN10 PO (19:46)
[2022-11-16] MEDS ORDERED: TRAZ-252 PO (19:46)
[2022-11-16] MEDS: TraZODone HCL 50 MG TABLET PO SCH (21:02)
[2022-11-16] MEDS: OLANZapine 10 MG TABLET PO SCH (21:02)
[2022-11-16] MEDS: ATORVASTATIN CALCIUM 20 MG TABLET PO SCH (21:03)
[2022-11-16] MEDS: ZOLPIDEM TARTRATE 10 MG TABLET PO PRN (21:26)
[2022-11-16 21:40] VITALS: BP 97/74
[2022-11-17] MEDS: HALOPERIDOL 5 MG TABLET PO PRN ×2 (01:35→10:57)
[2022-11-17] MEDS: LEVOTHYROXINE SODIUM 125 MCG TABLET PO SCH (06:49)
[2022-11-17] MEDS: FUROSEMIDE 20 MG TABLET PO SCH (08:04)
[2022-11-17] MEDS: THIAMINE 100 MG TABLET PO SCH (08:04)
[2022-11-17] MEDS: FOLIC ACID 1 MG TABLET PO SCH (08:04)
[2022-11-17] MEDS: MULTIVITAMINS WITH MINERALS, THERAPEUTIC TABLET PO SCH (08:04)
[2022-11-17] MEDS: CEPHALEXIN MONOHYDRATE 500 MG CAPSULE PO SCH (08:04)
[2022-11-17] MEDS: LORazepam 2 MG TABLET PO PRN (08:05)
[2022-11-17] MEDS: GABAPENTIN 300 MG CAPSULE PO SCH (08:05)
[2022-11-17] MEDS: NICOTINE 21 MG/24 HOUR PATCH TD PRN (08:50)
[2022-11-17 09:10] VITALS: BP 147/94
[2022-11-17] MEDS ORDERED: CEPH-558 PO (11:09)
== END 2022-11-17 16:55 | disposition home or self-care (01) | DRG 753 ==
LOC: EMS 12:46 → 3EC 22:58
PROVIDERS: ADMIT Psychiatry & Neurology Psychiatry; ATTEND Psychiatry & Neurology Psychiatry
DX: F31.9 Bipolar disorder, unspecified (principal); E03.9 Hypothyroidism, unspecified; F10.129 Alcohol abuse with intoxication, unspecified; F41.9 Anxiety disorder, unspecified; G47.00 Insomnia, unspecified; K59.00 Constipation, unspecified; F12.90 Cannabis use, unspecified, uncomplicated; I10 Essential (primary) hypertension; Y90.8 Blood alcohol level of 240 mg/100 ml or more; Z20.822 Contact with and (suspected) exposure to COVID-19; Z87.891 Personal history of nicotine dependence; Z79.899 Other long term (current) drug therapy
CPT/HCPCS: 80053; 80307; 81001; 84443; 85025; 87086; 87186; 99291; G0480; J1200; J1630; J2060

== ENCOUNTER 2022-11-26 01:58 | Inpatient (IN) | payer MEDICAID ==
[~2022-11-26] VITALS: Ht 152.4 cm; Wt 59.0 kg
[~2022-11-26 01:58] MED LIST changes: +ATOR20TA PO; -ATOR20TA86 PO; +CEPH-558 PO; -FURO20 PO; -GABA-1181 PO; -MULT-1239 PO; +OLAN10 PO; -OLAN10TA74 PO; -OMEP20 PO
[2022-11-26 02:34] LABS: BASOPHILS % (AUTO) 0.9 % (0.0-2.0); EOSINOPHILS % (AUTO) 4.3 % (1.0-6.0); HEMOGLOBIN 13.7 g/dL (12.0-16.0); LYMPHOCYTES # (AUTO) 2.5 K/uL (1.0-4.8); LYMPHOCYTES % (AUTO) 39.5 % (22.0-44.0); MEAN CORPUSCULAR HEMOGLOBIN 32.3 pg (26.0-34.0); MEAN CORPUSCULAR HGB CONC 33.4 G/dL (31.0-37.0); MEAN CORPUSCULAR VOLUME 97 fL (80-100); MONOCYTES # (AUTO) 0.6 K/uL (0.1-1.0); MONOCYTES % (AUTO) 9.1 % (2.0-9.0); NEUTROPHILS % (AUTO) 46.2 % (40.0-70.0); PLATELET COUNT (AUTO) 222 K/uL (150-450); RED BLOOD CELL COUNT(AUTO) 4.24 MIL/uL (4.00-5.20); RED CELL DISTRIBUTION WIDTH 15.9 % (11.5-14.5)
[2022-11-26 02:48] LABS: ANION GAP 9 mmol/L (8-16); CALCIUM, TOTAL 8.4 mg/dL (8.8-10.5); CARBON DIOXIDE 23 mmol/L (22-29); CHLORIDE 108 mmol/L (98-107); CREATININE 0.78 mg/dL (0.60-1.30); GLOMERULAR FILTR. RATE CALC > 60 mL/min (>60); GLUCOSE,RANDOM 96 mg/dL (70-110); POTASSIUM 3.8 mmol/L (3.5-5.1); SODIUM SERUM 140 mmol/L (136-145)
[2022-11-26 03:04] LABS: ALANINE AMINOTRANSFERASE 17 U/L (12-78); ALKALINE PHOSPHATASE 82 U/L (46-116); ASPARTATE AMINOTRANSFERASE 20 U/L (15-37); BILIRUBIN,TOTAL 0.2 mg/dL (0.1-1.0); THYROID STIMULATING HORMONE 13.45 uIU/mL (0.36-3.74); TOTAL PROTEIN, SERUM 6.4 g/dL (6.4-8.2)
[2022-11-26] MEDS ORDERED: LORazepam 1 MG TABLET PO ONE (03:45)
[2022-11-26] MEDS ORDERED: OLANZapine 5 MG TABLET PO ONE (03:45)
[2022-11-26 04:11] LABS: COVID AG,FIA SOURCE NASAL SWAB
[2022-11-26 04:26] LABS: AMPHET/METH SCREEN,URINE NEGATIVE (NEGATIVE); BARBITURATE SCREEN, URINE NEGATIVE (NEGATIVE); BENZODIAZEPINES SCREEN,URINE NEGATIVE (NEGATIVE); CANNABINOID SCREEN,URINE POSITIVE (NEGATIVE); COCAINE SCREEN,URINE NEGATIVE (NEGATIVE); METHADONE SCREEN, URINE NEGATIVE (NEGATIVE); OPIATE SCREEN,URINE NEGATIVE (NEGATIVE); PHENCYCLIDINE SCREEN,URINE NEGATIVE (NEGATIVE)
[2022-11-26] MEDS ORDERED: NICOTINE 14 MG/24 HOUR PATCH TD ONE (08:30)
[2022-11-26] MEDS: LORazepam 2 MG TABLET PO PRN ×3 (10:00→21:20)
[2022-11-26 10:19] VITALS: BP 133/97
[2022-11-26] MEDS: HALOPERIDOL 5 MG TABLET PO PRN ×2 (11:50→17:36)
[2022-11-26 14:46] VITALS: BP 122/74
[2022-11-26] MEDS ORDERED: LOPERAMIDE HCL 2 MG CAPSULE PO PRN ×2 (19:00→19:45)
[2022-11-26] MEDS ORDERED: IBUPROFEN 600 MG TABLET PO PRN (19:45)
[2022-11-26] MEDS ORDERED: CloNIDine HCL 0.1 MG TABLET PO PRN (19:45)
[2022-11-26] MEDS ORDERED: DOCUSATE SODIUM 100 MG CAPSULE PO PRN (19:45)
[2022-11-26] MEDS ORDERED: PETROLATUM,WHITE 28 GM JELLY TP PRN (19:45)
[2022-11-26] MEDS ORDERED: MAGNESIUM HYDROXIDE SUSPENSION 30 ML UDCUP PO PRN (19:45)
[2022-11-26] MEDS ORDERED: BACITRACIN 28 GM OINTMENT TP PRN (19:45)
[2022-11-26] MEDS ORDERED: ACETAMINOPHEN 325 MG TABLET PO PRN (19:45)
[2022-11-26] MEDS ORDERED: ALBUTEROL SULFATE HFA 90 MCG/PUFF 8 GM INHALER IH PRN (19:45)
[2022-11-26] MEDS ORDERED: MAG HYDROX/AL HYDROX/SIMETH ES 30 ML SUSPENSION UDCUP PO PRN (19:45)
[2022-11-26] MEDS ORDERED: ONDANSETRON HCL 4 MG TABLET PO PRN (19:45)
[2022-11-26] MEDS ORDERED: OMEPRAZOLE 20 MG CAPSULE PO PRN (19:45)
[2022-11-26] MEDS: ZOLPIDEM TARTRATE 10 MG TABLET PO PRN (21:05)
[2022-11-27] MEDS: HALOPERIDOL 5 MG TABLET PO PRN ×4 (00:16→16:34)
[2022-11-27] MEDS: LEVOTHYROXINE SODIUM 137 MCG TABLET PO SCH (07:07)
[2022-11-27 08:00] VITALS: BP 135/96
[2022-11-27] MEDS: NICOTINE 21 MG/24 HOUR PATCH TD SCH (08:05)
[2022-11-27] MEDS: LORazepam 2 MG TABLET PO PRN (08:05)
[2022-11-27] MEDS: ATORVASTATIN CALCIUM 10 MG TABLET PO SCH (08:05)
[2022-11-27] MEDS: OLANZapine 10 MG TABLET PO SCH (20:37)
[2022-11-27] MEDS: ZOLPIDEM TARTRATE 10 MG TABLET PO PRN (21:04)
[2022-11-27 21:50] VITALS: BP 141/92
[2022-11-28] MEDS: HALOPERIDOL 5 MG TABLET PO PRN ×3 (00:37→10:27)
[2022-11-28 01:40] VITALS: BP 127/91
[2022-11-28] MEDS: LEVOTHYROXINE SODIUM 137 MCG TABLET PO SCH (06:28)
[2022-11-28] MEDS: NICOTINE 21 MG/24 HOUR PATCH TD SCH (08:25)
[2022-11-28] MEDS: TraZODone HCL 50 MG TABLET PO SCH ×3 (08:25→16:24)
[2022-11-28] MEDS: ATORVASTATIN CALCIUM 10 MG TABLET PO SCH (08:25)
[2022-11-28 09:45] VITALS: BP 135/84
[2022-11-28] MEDS: MUPIROCIN CALCIUM 2% 15 GM CREAM TP SCH ×2 (10:19→16:24)
[2022-11-28] MEDS: LORazepam 1 MG TABLET PO PRN ×3 (14:38→23:49)
[2022-11-28] MEDS ORDERED: DENTURE ADHESIVE 68 GM CREAM DT PRN (16:00)
[2022-11-28] MEDS: OLANZapine 10 MG TABLET PO SCH (20:39)
[2022-11-28] MEDS: ZOLPIDEM TARTRATE 10 MG TABLET PO PRN (21:27)
[2022-11-28 21:38] VITALS: BP 137/91
[2022-11-28 23:40] VITALS: BP 126/93
[2022-11-29] MEDS: LEVOTHYROXINE SODIUM 137 MCG TABLET PO SCH (06:57)
[2022-11-29] MEDS: TraZODone HCL 50 MG TABLET PO SCH ×5 (08:11→16:55)
[2022-11-29] MEDS: NICOTINE 21 MG/24 HOUR PATCH TD SCH (08:11)
[2022-11-29] MEDS: ATORVASTATIN CALCIUM 10 MG TABLET PO SCH (08:11)
[2022-11-29] MEDS: MUPIROCIN CALCIUM 2% 15 GM CREAM TP SCH ×2 (08:17→16:55)
[2022-11-29] MEDS: LORazepam 1 MG TABLET PO PRN ×3 (08:29→20:25)
[2022-11-29 09:27] VITALS: BP 105/76
[2022-11-29] MEDS: OLANZapine 10 MG TABLET PO SCH (20:06)
[2022-11-29 20:17] VITALS: BP 118/79
[2022-11-29] MEDS: ZOLPIDEM TARTRATE 10 MG TABLET PO PRN (21:34)
[2022-11-29] MEDS: HALOPERIDOL 5 MG TABLET PO PRN (23:23)
[2022-11-30] MEDS: LORazepam 1 MG TABLET PO PRN ×3 (01:34→12:17)
[2022-11-30] MEDS: LEVOTHYROXINE SODIUM 137 MCG TABLET PO SCH (06:04)
[2022-11-30 08:07] VITALS: BP 136/76
[2022-11-30] MEDS: NICOTINE 21 MG/24 HOUR PATCH TD SCH (09:29)
[2022-11-30] MEDS: TraZODone HCL 50 MG TABLET PO SCH ×3 (09:30→17:00)
[2022-11-30] MEDS: ATORVASTATIN CALCIUM 10 MG TABLET PO SCH (09:30)
[2022-11-30] MEDS: MUPIROCIN CALCIUM 2% 15 GM CREAM TP SCH ×2 (09:49→17:01)
[2022-11-30] MEDS: HALOPERIDOL 5 MG TABLET PO PRN ×3 (10:25→21:08)
[2022-11-30] MEDS ORDERED: LORazepam 1 MG TABLET PO PRN (16:45)
[2022-11-30] MEDS: OLANZapine 10 MG TABLET PO SCH (20:45)
[2022-11-30 21:31] VITALS: BP 114/76
[2022-11-30] MEDS: ZOLPIDEM TARTRATE 10 MG TABLET PO PRN (21:31)
[2022-12-01] MEDS: HALOPERIDOL 5 MG TABLET PO PRN ×2 (02:05→08:35)
[2022-12-01] MEDS: LEVOTHYROXINE SODIUM 137 MCG TABLET PO SCH (06:36)
[2022-12-01] MEDS: ATORVASTATIN CALCIUM 10 MG TABLET PO SCH (08:34)
[2022-12-01] MEDS: TraZODone HCL 50 MG TABLET PO SCH ×2 (08:34→11:54)
[2022-12-01] MEDS: NICOTINE 21 MG/24 HOUR PATCH TD SCH (08:34)
[2022-12-01 10:11] VITALS: BP 149/66
[2022-12-01] MEDS: MUPIROCIN CALCIUM 2% 15 GM CREAM TP SCH (10:40)
[2022-12-01] MEDS ORDERED: TRAZ-252 PO (12:13)
== END 2022-12-01 12:45 | disposition home or self-care (01) | DRG 750 ==
LOC: EMS 01:59 → 3EI 07:27
PROVIDERS: ADMIT Psychiatry & Neurology Psychiatry; ATTEND Psychiatry & Neurology Psychiatry
DX: F25.9 Schizoaffective disorder, unspecified (principal); R45.851 Suicidal ideations; E03.9 Hypothyroidism, unspecified; E78.5 Hyperlipidemia, unspecified; F31.9 Bipolar disorder, unspecified; Z20.822 Contact with and (suspected) exposure to COVID-19; F10.10 Alcohol abuse, uncomplicated; F12.90 Cannabis use, unspecified, uncomplicated; G47.00 Insomnia, unspecified; F17.210 Nicotine dependence, cigarettes, uncomplicated; I10 Essential (primary) hypertension; K59.00 Constipation, unspecified; F41.9 Anxiety disorder, unspecified; Z79.899 Other long term (current) drug therapy
CPT/HCPCS: 80053; 80307; 84443; 85025; 87081; 99285; G0480

== ENCOUNTER 2022-12-05 16:24 | Inpatient (IN) | payer MEDICAID ==
[~2022-12-05] VITALS: Ht 154.9 cm; Wt 63.5 kg
[~2022-12-05 16:24] MED LIST changes: -CEPH-558 PO
[2022-12-05] MEDS: LORazepam 2 MG TABLET PO PRN (17:54)
[2022-12-05 18:06] LABS: GLUCOMETER DEV NAME(LOC) POC.BV
[2022-12-05 18:37] VITALS: BP 118/78
[2022-12-05 19:43] VITALS: BP 122/75
[2022-12-05] MEDS: HALOPERIDOL 5 MG TABLET PO PRN (20:07)
[2022-12-05 20:23] VITALS: BP 120/78
[2022-12-05] MEDS: ZOLPIDEM TARTRATE 10 MG TABLET PO PRN (20:44)
[2022-12-06 00:14] VITALS: BP 115/69
[2022-12-06] MEDS: HALOPERIDOL 5 MG TABLET PO PRN ×4 (00:20→23:14)
[2022-12-06] MEDS: LORazepam 2 MG TABLET PO PRN ×3 (00:20→18:41)
[2022-12-06] MEDS ORDERED: ONDANSETRON HCL 4 MG TABLET PO PRN (05:45)
[2022-12-06] MEDS ORDERED: OMEPRAZOLE 20 MG CAPSULE PO PRN (05:45)
[2022-12-06] MEDS ORDERED: DOCUSATE SODIUM 100 MG CAPSULE PO PRN (05:45)
[2022-12-06] MEDS ORDERED: MAG HYDROX/AL HYDROX/SIMETH ES 30 ML SUSPENSION UDCUP PO PRN (05:45)
[2022-12-06] MEDS ORDERED: BACITRACIN 28 GM OINTMENT TP PRN (05:45)
[2022-12-06] MEDS ORDERED: ALBUTEROL SULFATE HFA 90 MCG/PUFF 8 GM INHALER IH PRN (05:45)
[2022-12-06] MEDS ORDERED: IBUPROFEN 600 MG TABLET PO PRN (05:45)
[2022-12-06] MEDS ORDERED: CloNIDine HCL 0.1 MG TABLET PO PRN (05:45)
[2022-12-06] MEDS ORDERED: LOPERAMIDE HCL 2 MG CAPSULE PO PRN (05:45)
[2022-12-06] MEDS ORDERED: PETROLATUM,WHITE 28 GM JELLY TP PRN (05:45)
[2022-12-06] MEDS ORDERED: ACETAMINOPHEN 325 MG TABLET PO PRN (05:45)
[2022-12-06] MEDS ORDERED: MAGNESIUM HYDROXIDE SUSPENSION 30 ML UDCUP PO PRN (05:45)
[2022-12-06 06:23] VITALS: BP 131/78
[2022-12-06] MEDS: LEVOTHYROXINE SODIUM 150 MCG TABLET PO SCH (06:37)
[2022-12-06 08:00] VITALS: BP 140/90
[2022-12-06] MEDS: NICOTINE 21 MG/24 HOUR PATCH TD SCH (08:00)
[2022-12-06] MEDS: TraZODone HCL 50 MG TABLET PO SCH ×2 (12:17→20:02)
[2022-12-06] MEDS ORDERED: LORazepam 1 MG TABLET PO ONE (14:00)
[2022-12-06] MEDS: OLANZapine 10 MG TABLET PO SCH (20:01)
[2022-12-06] MEDS: ATORVASTATIN CALCIUM 10 MG TABLET PO SCH (20:01)
[2022-12-06] MEDS: ZOLPIDEM TARTRATE 10 MG TABLET PO PRN (21:40)
[2022-12-06 22:23] VITALS: BP 145/95
[2022-12-07 04:59] VITALS: BP 136/78
[2022-12-07] MEDS: HALOPERIDOL 5 MG TABLET PO PRN ×4 (05:03→23:57)
[2022-12-07] MEDS: LEVOTHYROXINE SODIUM 150 MCG TABLET PO SCH (06:22)
[2022-12-07 07:29] LABS: BASOPHILS % (AUTO) 1.1 % (0.0-2.0); EOSINOPHILS % (AUTO) 2.3 % (1.0-6.0); HEMATOCRIT 42.1 % (36-46); HEMOGLOBIN 13.8 g/dL (12.0-16.0); LYMPHOCYTES # (AUTO) 1.9 K/uL (1.0-4.8); MEAN CORPUSCULAR HEMOGLOBIN 31.1 pg (26.0-34.0); MEAN CORPUSCULAR HGB CONC 32.8 G/dL (31.0-37.0); MEAN CORPUSCULAR VOLUME 95 fL (80-100); MONOCYTES # (AUTO) 0.6 K/uL (0.1-1.0); MONOCYTES % (AUTO) 7.6 % (2.0-9.0); NEUTROPHILS # (AUTO) 4.7 K/uL (1.8-7.7); PLATELET COUNT (AUTO) 261 K/uL (150-450); RED BLOOD CELL COUNT(AUTO) 4.45 MIL/uL (4.00-5.20); RED CELL DISTRIBUTION WIDTH 15.1 % (11.5-14.5)
[2022-12-07 07:53] LABS: ALANINE AMINOTRANSFERASE 19 U/L (12-78); ALBUMIN 3.2 g/dL (3.4-5.0); ALKALINE PHOSPHATASE 92 U/L (46-116); ANION GAP 9 mmol/L (8-16); ASPARTATE AMINOTRANSFERASE 22 U/L (15-37); BILIRUBIN,TOTAL 0.2 mg/dL (0.1-1.0); CALCIUM, TOTAL 8.8 mg/dL (8.8-10.5); CARBON DIOXIDE 25 mmol/L (22-29); CHLORIDE 105 mmol/L (98-107); CHOL/HDL RATIO 3.3 (3.9-5.7); CHOLESTEROL 246 mg/dL (131-200); CREATININE 0.68 mg/dL (0.60-1.30); GLOMERULAR FILTR. RATE CALC > 60 mL/min (>60); GLUCOSE,RANDOM 106 mg/dL (70-110); HDL CHOLESTEROL 74 mg/dL (40-60); LDL CHOL (CALC.) 143 mg/dL (0-130); PHOSPHORUS 3.8 mg/dL (2.5-4.9); POTASSIUM 3.8 mmol/L (3.5-5.1); SODIUM SERUM 139 mmol/L (136-145); THYROID STIMULATING HORMONE 13.74 uIU/mL (0.36-3.74); TOTAL PROTEIN, SERUM 6.5 g/dL (6.4-8.2); TRIGLYCERIDES 146 mg/dL (15-150)
[2022-12-07 08:06] VITALS: BP 140/95
[2022-12-07] MEDS: LORazepam 2 MG TABLET PO PRN (08:35)
[2022-12-07] MEDS: TraZODone HCL 50 MG TABLET PO SCH ×3 (08:36→20:34)
[2022-12-07] MEDS: NICOTINE 21 MG/24 HOUR PATCH TD SCH (08:36)
[2022-12-07] MEDS ORDERED: LEVO150T11 PO (17:23)
[2022-12-07] MEDS ORDERED: PALI819S IM (17:23)
[2022-12-07] MEDS ORDERED: MIDO10TA PO (17:23)
[2022-12-07] MEDS ORDERED: ATOR10TA69 PO (17:23)
[2022-12-07] MEDS ORDERED: DENTURE ADHESIVE 68 GM CREAM DT PRN (17:30)
[2022-12-07 20:12] VITALS: BP 130/93
[2022-12-07] MEDS: OLANZapine 10 MG TABLET PO SCH (20:33)
[2022-12-07] MEDS: ATORVASTATIN CALCIUM 10 MG TABLET PO SCH (20:34)
[2022-12-07] MEDS: LORazepam 1 MG TABLET PO PRN (20:35)
[2022-12-07] MEDS: ZOLPIDEM TARTRATE 10 MG TABLET PO PRN (21:46)
[2022-12-07 23:22] VITALS: BP 127/92
[2022-12-08] MEDS: HALOPERIDOL 5 MG TABLET PO PRN ×4 (05:19→20:43)
[2022-12-08] MEDS: LEVOTHYROXINE SODIUM 150 MCG TABLET PO SCH (06:21)
[2022-12-08 08:18] VITALS: BP 126/73
[2022-12-08] MEDS: TraZODone HCL 50 MG TABLET PO SCH ×3 (08:52→20:43)
[2022-12-08] MEDS: NICOTINE 21 MG/24 HOUR PATCH TD SCH (08:53)
[2022-12-08] MEDS: LORazepam 1 MG TABLET PO PRN ×2 (11:42→23:42)
[2022-12-08 20:12] VITALS: BP 132/87
[2022-12-08] MEDS: OLANZapine 10 MG TABLET PO SCH (20:42)
[2022-12-08] MEDS: ATORVASTATIN CALCIUM 10 MG TABLET PO SCH (20:43)
[2022-12-08] MEDS: ZOLPIDEM TARTRATE 10 MG TABLET PO PRN (21:26)
[2022-12-09] MEDS: HALOPERIDOL 5 MG TABLET PO PRN ×3 (01:16→13:00)
[2022-12-09] MEDS: LEVOTHYROXINE SODIUM 150 MCG TABLET PO SCH (06:32)
[2022-12-09] MEDS: TraZODone HCL 50 MG TABLET PO SCH ×2 (08:23→13:00)
[2022-12-09] MEDS: NICOTINE 21 MG/24 HOUR PATCH TD SCH (08:24)
[2022-12-09 08:47] VITALS: BP 115/80
== END 2022-12-09 17:08 | disposition home or self-care (01) | DRG 753 ==
LOC: B2S 16:56
PROVIDERS: ADMIT Psychiatry & Neurology Psychiatry; ATTEND Psychiatry & Neurology Psychiatry
DX: F31.9 Bipolar disorder, unspecified (principal); E03.9 Hypothyroidism, unspecified; E78.5 Hyperlipidemia, unspecified; F10.10 Alcohol abuse, uncomplicated; F41.0 Panic disorder [episodic paroxysmal anxiety]; G47.00 Insomnia, unspecified; I10 Essential (primary) hypertension; Z20.822 Contact with and (suspected) exposure to COVID-19; K59.00 Constipation, unspecified; F12.90 Cannabis use, unspecified, uncomplicated; Z79.899 Other long term (current) drug therapy
CPT/HCPCS: 80053; 80061; 83036; 83735; 84100; 84443; 85025; 87081

== ENCOUNTER 2022-12-12 14:58 | Inpatient (IN) | payer MEDICAID ==
[~2022-12-12] VITALS: Ht 152.4 cm; Wt 55.9 kg
[~2022-12-12 14:58] MED LIST changes: +ATOR10TA69 PO; -ATOR20TA PO; -LEVO125 PO; +LEVO150T11 PO; +MIDO10TA PO; +PALI819S IM
[2022-12-12] MEDS ORDERED: MECL-160 PO (15:08)
[2022-12-12] MEDS ORDERED: HYDR-4527 PO (15:08)
[2022-12-12] MEDS ORDERED: OLANZapine 5 MG TABLET PO ONE (16:30)
[2022-12-12] MEDS ORDERED: LORazepam 1 MG TABLET PO ONE (16:30)
[2022-12-12 16:32] LABS: COVID AG,FIA SOURCE NASAL SWAB
[2022-12-12 16:37] LABS: BASOPHILS % (AUTO) 1.5 % (0.0-2.0); EOSINOPHILS % (AUTO) 2.3 % (1.0-6.0); HEMATOCRIT 39.9 % (36-46); HEMOGLOBIN 13.2 g/dL (12.0-16.0); LYMPHOCYTES # (AUTO) 2.9 K/uL (1.0-4.8); LYMPHOCYTES % (AUTO) 30.6 % (22.0-44.0); MEAN CORPUSCULAR HGB CONC 33.2 G/dL (31.0-37.0); MEAN CORPUSCULAR VOLUME 96 fL (80-100); MONOCYTES # (AUTO) 0.7 K/uL (0.1-1.0); MONOCYTES % (AUTO) 7.5 % (2.0-9.0); NEUTROPHILS # (AUTO) 5.4 K/uL (1.8-7.7); NEUTROPHILS % (AUTO) 58.1 % (40.0-70.0); PLATELET COUNT (AUTO) 235 K/uL (150-450); RED BLOOD CELL COUNT(AUTO) 4.14 MIL/uL (4.00-5.20); RED CELL DISTRIBUTION WIDTH 15.2 % (11.5-14.5)
[2022-12-12 16:41] LABS: ANION GAP 10 mmol/L (8-16); CALCIUM, TOTAL 8.9 mg/dL (8.8-10.5); CARBON DIOXIDE 26 mmol/L (22-29); CHLORIDE 104 mmol/L (98-107); CREATININE 0.84 mg/dL (0.60-1.30); GLOMERULAR FILTR. RATE CALC > 60 mL/min (>60); GLUCOSE,RANDOM 102 mg/dL (70-110); POTASSIUM 4.1 mmol/L (3.5-5.1); SODIUM SERUM 140 mmol/L (136-145)
[2022-12-12 16:53] LABS: B-TYPE NATRIURETIC PEPTIDE 10 pg/mL (0-100)
[2022-12-12 17:06] LABS: ALANINE AMINOTRANSFERASE 18 U/L (12-78); ALBUMIN 3.3 g/dL (3.4-5.0); ALKALINE PHOSPHATASE 98 U/L (46-116); ASPARTATE AMINOTRANSFERASE 22 U/L (15-37); BILIRUBIN,TOTAL 0.3 mg/dL (0.1-1.0); CREATINE KINASE, TOTAL ONLY 204 U/L (26-192); TOTAL PROTEIN, SERUM 6.5 g/dL (6.4-8.2)
[2022-12-12 17:20] LABS: APPEARANCE,URINE CLEAR (CLEAR); BILIRUBIN,URINE NEGATIVE (NEGATIVE); GLUCOSE, URINE (UA) NEGATIVE (NEGATIVE); KETONES,URINE NEGATIVE (NEGATIVE); LEUKOCYTE ESTERASE ,URINE TRACE (NEGATIVE); NITRATE,URINE NEGATIVE (NEGATIVE); OCCULT BLOOD,URINE NEGATIVE (NEGATIVE); PH,URINE 6.5 (5.0-8.0); PROTEIN,URINE NEGATIVE (NEGATIVE); SPECIFIC GRAVITIY, URINE 1.007 (1.003-1.030); UROBILINOGEN,URINE <=1.0 mg/dL (<=1.0)
[2022-12-12 17:35] LABS: BACTERIA,URINE None Seen /HPF (None Seen); RBC,URINE None Seen /HPF (0-2); SQUAMOUS EPITHELIAL CELL,UR Few /LPF (None Seen)
[2022-12-12] MEDS: LORazepam 2 MG TABLET PO PRN (20:19)
[2022-12-12] MEDS: OLANZapine 5 MG RAPDIS TABLET PO PRN (21:12)
[2022-12-12] MEDS: ZOLPIDEM TARTRATE 10 MG TABLET PO PRN (23:11)
[2022-12-13 00:09] VITALS: BP 126/78
[2022-12-13 01:27] VITALS: BP 103/69
[2022-12-13] MEDS: LORazepam 2 MG TABLET PO PRN ×4 (01:29→20:06)
[2022-12-13] MEDS ORDERED: ACETAMINOPHEN 325 MG TABLET PO PRN (04:45)
[2022-12-13] MEDS ORDERED: LOPERAMIDE HCL 2 MG CAPSULE PO PRN (04:45)
[2022-12-13] MEDS ORDERED: BACITRACIN 28 GM OINTMENT TP PRN (04:45)
[2022-12-13] MEDS ORDERED: CloNIDine HCL 0.1 MG TABLET PO PRN (04:45)
[2022-12-13] MEDS ORDERED: ALBUTEROL SULFATE HFA 90 MCG/PUFF 8 GM INHALER IH PRN (04:45)
[2022-12-13] MEDS ORDERED: PETROLATUM,WHITE 28 GM JELLY TP PRN (04:45)
[2022-12-13] MEDS ORDERED: MAGNESIUM HYDROXIDE SUSPENSION 30 ML UDCUP PO PRN (04:45)
[2022-12-13] MEDS ORDERED: ONDANSETRON HCL 4 MG TABLET PO PRN (04:45)
[2022-12-13] MEDS ORDERED: DOCUSATE SODIUM 100 MG CAPSULE PO PRN (04:45)
[2022-12-13] MEDS ORDERED: MAG HYDROX/AL HYDROX/SIMETH ES 30 ML SUSPENSION UDCUP PO PRN (04:45)
[2022-12-13] MEDS ORDERED: IBUPROFEN 600 MG TABLET PO PRN (04:45)
[2022-12-13] MEDS ORDERED: OMEPRAZOLE 20 MG CAPSULE PO PRN (04:45)
[2022-12-13] MEDS: LEVOTHYROXINE SODIUM 150 MCG TABLET PO SCH (06:25)
[2022-12-13 08:51] VITALS: BP 130/62
[2022-12-13] MEDS: NICOTINE 21 MG/24 HOUR PATCH TD SCH (09:06)
[2022-12-13] MEDS: ATORVASTATIN CALCIUM 10 MG TABLET PO SCH (09:06)
[2022-12-13] MEDS: OLANZapine 5 MG RAPDIS TABLET PO PRN ×2 (12:27→20:06)
[2022-12-13 20:36] VITALS: BP 131/78
[2022-12-13 21:06] VITALS: BP 110/67
[2022-12-13] MEDS: ZOLPIDEM TARTRATE 10 MG TABLET PO PRN (21:16)
[2022-12-14] MEDS: LORazepam 2 MG TABLET PO PRN ×4 (04:48→22:25)
[2022-12-14] MEDS: LEVOTHYROXINE SODIUM 150 MCG TABLET PO SCH (06:35)
[2022-12-14] MEDS: ATORVASTATIN CALCIUM 10 MG TABLET PO SCH (08:16)
[2022-12-14] MEDS: NICOTINE 21 MG/24 HOUR PATCH TD SCH (08:17)
[2022-12-14 09:01] VITALS: BP 126/84
[2022-12-14] MEDS: OLANZapine 5 MG RAPDIS TABLET PO PRN (11:52)
[2022-12-14] MEDS ORDERED: DENTURE ADHESIVE 68 GM CREAM DT PRN (19:45)
[2022-12-14] MEDS: ZOLPIDEM TARTRATE 10 MG TABLET PO PRN (20:38)
[2022-12-14 22:23] VITALS: BP 120/81
[2022-12-15] MEDS: OLANZapine 5 MG RAPDIS TABLET PO PRN ×2 (01:35→08:12)
[2022-12-15] MEDS: LEVOTHYROXINE SODIUM 150 MCG TABLET PO SCH (06:48)
[2022-12-15] MEDS: ATORVASTATIN CALCIUM 10 MG TABLET PO SCH (08:12)
[2022-12-15] MEDS: LORazepam 2 MG TABLET PO PRN ×2 (08:12→20:01)
[2022-12-15] MEDS: NICOTINE 21 MG/24 HOUR PATCH TD SCH (08:12)
[2022-12-15 08:17] VITALS: BP 128/90
[2022-12-15] MEDS: DIVALPROEX SODIUM 500 MG ER TABLET PO SCH (16:01)
[2022-12-15] MEDS ORDERED: OLANZapine 10 MG TABLET PO SCH (21:00)
[2022-12-15] MEDS: ZOLPIDEM TARTRATE 10 MG TABLET PO PRN (21:05)
[2022-12-15 22:10] VITALS: BP 120/74
[2022-12-15] MEDS ORDERED: DIVA500T69 PO (23:23)
[2022-12-15] MEDS ORDERED: OLAN10 PO (23:23)
[2022-12-16 01:32] VITALS: BP 115/84
[2022-12-16] MEDS: LORazepam 2 MG TABLET PO PRN ×2 (01:39→08:28)
[2022-12-16] MEDS: LEVOTHYROXINE SODIUM 150 MCG TABLET PO SCH (06:23)
[2022-12-16] MEDS: DIVALPROEX SODIUM 500 MG ER TABLET PO SCH ×3 (08:29→17:35)
[2022-12-16] MEDS: ATORVASTATIN CALCIUM 10 MG TABLET PO SCH (08:30)
[2022-12-16] MEDS: NICOTINE 21 MG/24 HOUR PATCH TD SCH (08:30)
[2022-12-16 09:18] VITALS: BP 125/83
== END 2022-12-16 16:22 | disposition home or self-care (01) | DRG 750 ==
LOC: EMS 14:59 → B2S 20:48
PROVIDERS: ADMIT Psychiatry & Neurology Psychiatry; ATTEND Psychiatry & Neurology Psychiatry
DX: F25.9 Schizoaffective disorder, unspecified (principal); F31.30 Bipolar disorder, current episode depressed, mild or moderate severity, unspecified; R45.851 Suicidal ideations; E03.9 Hypothyroidism, unspecified; I10 Essential (primary) hypertension; F12.10 Cannabis abuse, uncomplicated; Z20.822 Contact with and (suspected) exposure to COVID-19; E78.5 Hyperlipidemia, unspecified; G47.00 Insomnia, unspecified; F41.9 Anxiety disorder, unspecified; F10.10 Alcohol abuse, uncomplicated; K59.00 Constipation, unspecified; F17.210 Nicotine dependence, cigarettes, uncomplicated; Z79.899 Other long term (current) drug therapy
CPT/HCPCS: 80053; 81001; 82550; 83880; 84484; 85025; 87081; 93005; 99285; G0480

== ENCOUNTER 2022-12-20 07:20 | Inpatient (IN) | payer MEDICAID ==
[~2022-12-20] VITALS: Ht 152.4 cm; Wt 58.1 kg
[~2022-12-20 07:20] MED LIST changes: -ATOR10TA69 PO; +DIVA500T69 PO; -LEVO150T11 PO; -MIDO10TA PO; -PALI819S IM; -TRAZ-252 PO
[2022-12-20] MEDS ORDERED: HydrOXYzine PAMOATE 25 MG CAPSULE PO ONE (07:45)
[2022-12-20] MEDS: OLANZapine 5 MG RAPDIS TABLET PO PRN (09:20)
[2022-12-20] MEDS: LORazepam 2 MG TABLET PO PRN ×2 (09:20→17:11)
[2022-12-20 09:27] LABS: APPEARANCE,URINE CLEAR (CLEAR); BILIRUBIN,URINE NEGATIVE (NEGATIVE); GLUCOSE, URINE (UA) NEGATIVE (NEGATIVE); KETONES,URINE NEGATIVE (NEGATIVE); LEUKOCYTE ESTERASE ,URINE SMALL (NEGATIVE); NITRATE,URINE NEGATIVE (NEGATIVE); OCCULT BLOOD,URINE SMALL (NEGATIVE); PROTEIN,URINE NEGATIVE (NEGATIVE); SPECIFIC GRAVITIY, URINE 1.005 (1.003-1.030); UROBILINOGEN,URINE <=1.0 mg/dL (<=1.0)
[2022-12-20 09:38] LABS: BACTERIA,URINE None Seen /HPF (None Seen); RBC,URINE 0-2 /HPF (0-2); SQUAMOUS EPITHELIAL CELL,UR Few /LPF (None Seen); WBC,URINE 0-2 /HPF (0-5)
[2022-12-20 09:39] LABS: COVID AG,FIA SOURCE NASAL SWAB
[2022-12-20 13:40] VITALS: BP 133/73; PULSE 85; RESP 18; TEMP 97.8
[2022-12-20 20:10] VITALS: BP 128/80; PULSE 79; RESP 18; TEMP 97.8; O2SAT 97
[2022-12-20] MEDS ORDERED: CloNIDine HCL 0.1 MG TABLET PO PRN (21:15)
[2022-12-20] MEDS ORDERED: IBUPROFEN 600 MG TABLET PO PRN (21:15)
[2022-12-20] MEDS ORDERED: OMEPRAZOLE 20 MG CAPSULE PO PRN (21:15)
[2022-12-20] MEDS ORDERED: MAG HYDROX/AL HYDROX/SIMETH ES 30 ML SUSPENSION UDCUP PO PRN (21:15)
[2022-12-20] MEDS ORDERED: MAGNESIUM HYDROXIDE SUSPENSION 30 ML UDCUP PO PRN (21:15)
[2022-12-20] MEDS ORDERED: PETROLATUM,WHITE 28 GM JELLY TP PRN (21:15)
[2022-12-20] MEDS ORDERED: ALBUTEROL SULFATE HFA 90 MCG/PUFF 8 GM INHALER IH PRN (21:15)
[2022-12-20] MEDS ORDERED: BACITRACIN 28 GM OINTMENT TP PRN (21:15)
[2022-12-20] MEDS ORDERED: LOPERAMIDE HCL 2 MG CAPSULE PO PRN (21:15)
[2022-12-20] MEDS ORDERED: ACETAMINOPHEN 325 MG TABLET PO PRN (21:15)
[2022-12-20] MEDS ORDERED: ONDANSETRON HCL 4 MG TABLET PO PRN (21:15)
[2022-12-20] MEDS ORDERED: DOCUSATE SODIUM 100 MG CAPSULE PO PRN (21:15)
[2022-12-20] MEDS: ZOLPIDEM TARTRATE 10 MG TABLET PO PRN (21:55)
[2022-12-21] MEDS: OLANZapine 5 MG RAPDIS TABLET PO PRN ×2 (03:55→23:48)
[2022-12-21 08:08] VITALS: BP 112/72; PULSE 83; RESP 16; TEMP 97.4; O2SAT 98
[2022-12-21] MEDS: NICOTINE 21 MG/24 HOUR PATCH TD SCH (09:35)
[2022-12-21] MEDS: LORazepam 2 MG TABLET PO PRN ×3 (09:53→23:48)
[2022-12-21] MEDS ORDERED: ATOR10TA69 PO (11:49)
[2022-12-21] MEDS ORDERED: BENZ1TAB84 PO (11:49)
[2022-12-21] MEDS ORDERED: TRAZ-257 PO (11:49)
[2022-12-21] MEDS ORDERED: LEVO137T2 PO (11:49)
[2022-12-21] MEDS: DIVALPROEX SODIUM 500 MG DR TABLET PO SCH (16:32)
[2022-12-21 20:16] VITALS: BP 116/75; PULSE 81; RESP 17; TEMP 98.1; O2SAT 98
[2022-12-21] MEDS: OLANZapine 10 MG TABLET PO SCH (20:22)
[2022-12-21] MEDS: ZOLPIDEM TARTRATE 10 MG TABLET PO PRN (22:02)
[2022-12-22] MEDS: NICOTINE 21 MG/24 HOUR PATCH TD SCH (08:17)
[2022-12-22] MEDS: DIVALPROEX SODIUM 500 MG DR TABLET PO SCH ×2 (08:17→17:05)
[2022-12-22 08:26] VITALS: BP 130/88; PULSE 97; RESP 18; TEMP 97.7
[2022-12-22] MEDS: LORazepam 2 MG TABLET PO PRN (14:05)
[2022-12-22 20:21] VITALS: BP 120/80; PULSE 99; RESP 18; TEMP 98.3; O2SAT 96
[2022-12-22] MEDS: OLANZapine 10 MG TABLET PO SCH (20:39)
[2022-12-22] MEDS: ZOLPIDEM TARTRATE 10 MG TABLET PO PRN (21:17)
[2022-12-23 02:14] VITALS: BP 105/81; PULSE 89; RESP 18; TEMP 98.1
[2022-12-23] MEDS: LORazepam 2 MG TABLET PO PRN ×2 (02:18→14:20)
[2022-12-23 08:18] VITALS: BP 131/78; PULSE 81; RESP 18; TEMP 98.1; O2SAT 96
[2022-12-23] MEDS: NICOTINE 21 MG/24 HOUR PATCH TD SCH (08:21)
[2022-12-23] MEDS: DIVALPROEX SODIUM 500 MG DR TABLET PO SCH ×2 (08:21→16:35)
[2022-12-23 20:12] VITALS: BP 132/82; PULSE 98; RESP 15; TEMP 97.7; O2SAT 98
[2022-12-23] MEDS: OLANZapine 10 MG TABLET PO SCH (20:19)
[2022-12-23] MEDS: ZOLPIDEM TARTRATE 10 MG TABLET PO PRN (20:51)
[2022-12-24] MEDS: LORazepam 2 MG TABLET PO PRN (00:03)
[2022-12-24] MEDS: NICOTINE 21 MG/24 HOUR PATCH TD SCH (08:46)
[2022-12-24] MEDS: DIVALPROEX SODIUM 500 MG DR TABLET PO SCH ×2 (08:47→17:11)
[2022-12-24 09:04] VITALS: BP 114/76; PULSE 89; RESP 17; TEMP 98; O2SAT 99
[2022-12-24] MEDS ORDERED: DENTURE ADHESIVE 68 GM CREAM DT PRN (12:00)
[2022-12-24] MEDS: OLANZapine 10 MG TABLET PO SCH (20:11)
[2022-12-24 20:33] VITALS: BP 102/74; PULSE 80; RESP 17; TEMP 97.1; O2SAT 98
[2022-12-24] MEDS: ZOLPIDEM TARTRATE 10 MG TABLET PO PRN (21:15)
[2022-12-25 00:28] VITALS: BP 102/76; PULSE 87; RESP 17; TEMP 98; O2SAT 98
[2022-12-25] MEDS: LORazepam 2 MG TABLET PO PRN ×2 (00:29→13:22)
[2022-12-25 08:13] VITALS: BP 117/88; PULSE 89; RESP 17; TEMP 98.2; O2SAT 98
[2022-12-25] MEDS: DIVALPROEX SODIUM 500 MG DR TABLET PO SCH ×2 (08:37→17:06)
[2022-12-25] MEDS: NICOTINE 21 MG/24 HOUR PATCH TD SCH (08:38)
[2022-12-25] MEDS: OLANZapine 10 MG TABLET PO SCH (20:27)
[2022-12-25 20:52] VITALS: BP 124/80; PULSE 86; RESP 16; TEMP 97.4; O2SAT 98
[2022-12-25] MEDS: ZOLPIDEM TARTRATE 10 MG TABLET PO PRN (21:07)
[2022-12-26] MEDS: LORazepam 2 MG TABLET PO PRN ×2 (00:13→13:02)
[2022-12-26 00:19] VITALS: BP 103/79; PULSE 87; RESP 17; TEMP 97.7; O2SAT 97
[2022-12-26 08:59] VITALS: BP 122/85; PULSE 96; RESP 16; TEMP 97; O2SAT 100
[2022-12-26] MEDS: DIVALPROEX SODIUM 500 MG DR TABLET PO SCH ×2 (09:19→16:18)
[2022-12-26] MEDS: NICOTINE 21 MG/24 HOUR PATCH TD SCH (09:20)
[2022-12-26] MEDS ORDERED: TraZODone HCL 100 MG TABLET PO SCH (21:00)
[2022-12-26 21:09] VITALS: BP 124/78; PULSE 97; RESP 18; TEMP 97.3; O2SAT 99
[2022-12-26] MEDS: ZOLPIDEM TARTRATE 10 MG TABLET PO PRN (21:21)
[2022-12-27 08:11] VITALS: BP 127/83; PULSE 99; RESP 18; TEMP 98; O2SAT 96
[2022-12-27] MEDS: DIVALPROEX SODIUM 500 MG DR TABLET PO SCH (08:50)
[2022-12-27] MEDS: NICOTINE 21 MG/24 HOUR PATCH TD SCH (08:50)
[2022-12-27] MEDS ORDERED: DIVA-112 PO (10:45)
[2022-12-27] MEDS ORDERED: TRAZ-257 PO (10:46)
== END 2022-12-27 14:50 | disposition home or self-care (01) | DRG 750 ==
LOC: EMS 07:21 → B2S 11:30
PROVIDERS: ADMIT Psychiatry & Neurology Psychiatry; ATTEND Psychiatry & Neurology Psychiatry
DX: F25.9 Schizoaffective disorder, unspecified (principal); F31.30 Bipolar disorder, current episode depressed, mild or moderate severity, unspecified; R45.851 Suicidal ideations; E03.9 Hypothyroidism, unspecified; Z20.822 Contact with and (suspected) exposure to COVID-19; E78.5 Hyperlipidemia, unspecified; F10.10 Alcohol abuse, uncomplicated; F41.0 Panic disorder [episodic paroxysmal anxiety]; G47.00 Insomnia, unspecified; I10 Essential (primary) hypertension; K59.00 Constipation, unspecified; F12.90 Cannabis use, unspecified, uncomplicated; Z72.0 Tobacco use
CPT/HCPCS: 81001; 87081; 99291; Z7502; Z7610

== ENCOUNTER 2023-01-08 17:42 | Inpatient (IN) | payer MEDICAID ==
[~2023-01-08] VITALS: Ht 152.4 cm; Wt 61.9 kg
[~2023-01-08 17:42] MED LIST changes: +DIVA-112 PO; -DIVA500T69 PO; -OLAN10 PO; +TRAZ-257 PO
[2023-01-08 18:52] LABS: BASOPHILS % (AUTO) 1.2 % (0.0-2.0); HEMATOCRIT 42.3 % (36-46); HEMOGLOBIN 14.1 g/dL (12.0-16.0); LYMPHOCYTES # (AUTO) 2.7 K/uL (1.0-4.8); LYMPHOCYTES % (AUTO) 34.2 % (22.0-44.0); MEAN CORPUSCULAR HEMOGLOBIN 31.5 pg (26.0-34.0); MEAN CORPUSCULAR HGB CONC 33.2 G/dL (31.0-37.0); MEAN CORPUSCULAR VOLUME 95 fL (80-100); MONOCYTES # (AUTO) 0.3 K/uL (0.1-1.0); MONOCYTES % (AUTO) 4.4 % (2.0-9.0); NEUTROPHILS # (AUTO) 4.5 K/uL (1.8-7.7); NEUTROPHILS % (AUTO) 56.2 % (40.0-70.0); PLATELET COUNT (AUTO) 251 K/uL (150-450); RED BLOOD CELL COUNT(AUTO) 4.47 MIL/uL (4.00-5.20)
[2023-01-08 19:04] LABS: ANION GAP 6 mmol/L (8-16); CALCIUM, TOTAL 8.1 mg/dL (8.8-10.5); CARBON DIOXIDE 29 mmol/L (22-29); CHLORIDE 104 mmol/L (98-107); CREATININE 0.85 mg/dL (0.60-1.30); GLOMERULAR FILTR. RATE CALC > 60 mL/min (>60); GLUCOSE,RANDOM 99 mg/dL (70-110); POTASSIUM 3.7 mmol/L (3.5-5.1); SODIUM SERUM 139 mmol/L (136-145)
[2023-01-08 19:07] LABS: B-TYPE NATRIURETIC PEPTIDE 25 pg/mL (0-100); INR 1.1 (0.9-1.1); PROTHROMBIN TIME 11.7 SEC (9.4-11.6)
[2023-01-08 19:18] LABS: ALBUMIN 2.7 g/dL (3.4-5.0); ALKALINE PHOSPHATASE 77 U/L (46-116); ASPARTATE AMINOTRANSFERASE 10 U/L (15-37); BILIRUBIN,TOTAL 0.2 mg/dL (0.1-1.0); CREATINE KINASE, TOTAL ONLY 29 U/L (26-192); THYROID STIMULATING HORMONE 2.51 uIU/mL (0.36-3.74); TOTAL PROTEIN, SERUM 5.5 g/dL (6.4-8.2); VALPROIC ACID 90 mcg/mL (50-100)
[2023-01-08 19:37] LABS: ALANINE AMINOTRANSFERASE 5 U/L (12-78)
[2023-01-08] MEDS ORDERED: ACETAMINOPHEN 325 MG TABLET PO PRN (20:00)
[2023-01-08] MEDS ORDERED: ASPIRIN 81 MG CHEWABLE TABLET PO ONE (20:00)
[2023-01-08] MEDS ORDERED: MORPHINE SULFATE 4 MG/ML SYRINGE IVP PRN (20:00)
[2023-01-08] MEDS ORDERED: ATORVASTATIN CALCIUM 40 MG TABLET PO ONE (20:00)
[2023-01-08] MEDS ORDERED: ONDANSETRON HCL 4 MG/2 ML VIAL IVP PRN (20:00)
[2023-01-08 20:48] VITALS: BP 99/55; PULSE 55; RESP 16; TEMP 97.7; O2SAT 100
[2023-01-08 20:55] VITALS: BP 99/55; PULSE 50; RESP 16; TEMP 97.7
[2023-01-08] MEDS: DOCUSATE SODIUM 100 MG CAPSULE PO SCH (21:00)
[2023-01-08] MEDS ORDERED: TraZODone HCL 100 MG TABLET PO SCH (22:00)
[2023-01-08] MEDS: NICOTINE 14 MG/24 HOUR PATCH TD SCH (22:12)
[2023-01-08] MEDS: DIVALPROEX SODIUM 500 MG DR TABLET PO SCH (22:12)
[2023-01-08] MEDS ORDERED: MELATONIN 3 MG TABLET PO ONE (22:45)
[2023-01-08] MEDS ORDERED: NITROGLYCERIN 0.4 MG SUBLINGUAL TABLET #25 SL ONE (22:45)
[2023-01-08] MEDS: HEPARIN SODIUM,PORCINE 5,000 UNITS/ML VIAL SQ SCH (22:51)
[2023-01-09] VITALS (8 sets, daily range): BP systolic 79–143; BP diastolic 33–94; PULSE 44–72; RESP 13–28; TEMP 97.4–97.8
[2023-01-09] MEDS ORDERED: SODIUM CHLORIDE 0.9% 500 ML IV ONE
[2023-01-09] MEDS ORDERED: NOREPINEPHRINE 8 MG/0.9 % NACL 250 ML IV PRN (01:30)
[2023-01-09] MEDS ORDERED: MORPHINE SULFATE 2 MG/ML SYRINGE IVP PRN (03:48)
[2023-01-09] MEDS ORDERED: DOPamine 400MG/D5W[STANDARD] 250 ML IV PRN (04:00)
[2023-01-09] MEDS ORDERED: ASPIRIN 81 MG CHEWABLE TABLET PO SCH (08:00)
[2023-01-09] MEDS: DOCUSATE SODIUM 100 MG CAPSULE PO SCH (08:48)
[2023-01-09] MEDS: HEPARIN SODIUM,PORCINE 5,000 UNITS/ML VIAL SQ SCH ×2 (08:48→16:00)
[2023-01-09] MEDS: NICOTINE 14 MG/24 HOUR PATCH TD SCH (10:33)
[2023-01-09] MEDS: DIVALPROEX SODIUM 500 MG DR TABLET PO SCH (10:33)
[2023-01-09] MEDS ORDERED: LORazepam 2 MG/ML VIAL IM ONE (12:15)
[2023-01-09] MEDS ORDERED: GABA-1181 PO (12:20)
[2023-01-09] MEDS ORDERED: TRAZ150T80 PO (12:20)
[2023-01-09] MEDS ORDERED: DIVA500T53 PO (12:20)
[2023-01-09] MEDS ORDERED: LEVO150T11 PO (12:20)
[2023-01-09] MEDS ORDERED: MIDO10TA PO (12:20)
[2023-01-09] MEDS ORDERED: BENZ1TAB84 PO (12:20)
[2023-01-09] MEDS ORDERED: ATOR10TA69 PO (12:20)
[2023-01-09] MEDS ORDERED: OLAN10TA74 PO (12:20)
[2023-01-09] MEDS ORDERED: LORazepam 2 MG/ML VIAL IVP ONE (12:30)
[2023-01-09] MEDS ORDERED: ASPI81 PO (18:58)
[2023-01-09] MEDS ORDERED: ATORVASTATIN CALCIUM 40 MG TABLET PO SCH (21:00)
== END 2023-01-09 19:30 | disposition home or self-care (01) | DRG 207 ==
LOC: EMS 17:42 → 5S 20:11 → ICU 01-09 01:59
PROVIDERS: ADMIT Internal Medicine; ATTEND Internal Medicine
DX: I95.9 Hypotension, unspecified (principal); E03.9 Hypothyroidism, unspecified; R07.89 Other chest pain; F31.9 Bipolar disorder, unspecified; R00.1 Bradycardia, unspecified; F41.9 Anxiety disorder, unspecified; I10 Essential (primary) hypertension; Z87.891 Personal history of nicotine dependence; Z79.899 Other long term (current) drug therapy
CPT/HCPCS: 71045; 80053; 80164; 82550; 83880; 84443; 84484; 85025; 85379; 85610; 85730; 87081; 93005; 99285; J1265; J1644; J2060; 36415-L1; 36415-TC

== ENCOUNTER 2023-10-07 19:49 | Inpatient (IN) | payer MEDICAID ==
[~2023-10-07] VITALS: Ht 152.4 cm; Wt 63.6 kg
[~2023-10-07 19:49] MED LIST changes: +ASPI81 PO; +ATOR10TA69 PO; +BENZ1TAB84 PO; -DIVA-112 PO; +DIVA500T53 PO; +GABA-1181 PO; +LEVO150T11 PO; +MIDO10TA PO; +OLAN10TA74 PO; -TRAZ-257 PO; +TRAZ150T80 PO
[2023-10-07 21:09] LABS: APPEARANCE,URINE CLEAR (CLEAR); BILIRUBIN,URINE NEGATIVE (NEGATIVE); COLOR,URINE LIGHT YELLOW (YELLOW); GLUCOSE, URINE (UA) NEGATIVE (NEGATIVE); KETONES,URINE NEGATIVE (NEGATIVE); LEUKOCYTE ESTERASE ,URINE SMALL (NEGATIVE); NITRATE,URINE NEGATIVE (NEGATIVE); OCCULT BLOOD,URINE MODERATE (NEGATIVE); PROTEIN,URINE NEGATIVE (NEGATIVE); SPECIFIC GRAVITIY, URINE 1.008 (1.003-1.030); UROBILINOGEN,URINE <=1.0 mg/dL (<=1.0)
[2023-10-07 21:10] LABS: BASOPHILS % (AUTO) 1.2 % (0.0-2.0); EOSINOPHILS % (AUTO) 0.5 % (1.0-6.0); HEMATOCRIT 45.5 % (36-46); HEMOGLOBIN 15.6 g/dL (12.0-16.0); LYMPHOCYTES # (AUTO) 3.1 K/uL (1.0-4.8); LYMPHOCYTES % (AUTO) 34.3 % (22.0-44.0); MEAN CORPUSCULAR HEMOGLOBIN 30.7 pg (26.0-34.0); MEAN CORPUSCULAR HGB CONC 34.3 G/dL (31.0-37.0); MEAN CORPUSCULAR VOLUME 89 fL (80-100); MONOCYTES # (AUTO) 0.5 K/uL (0.1-1.0); NEUTROPHILS # (AUTO) 5.3 K/uL (1.8-7.7); PLATELET COUNT (AUTO) 294 K/uL (150-450); RED BLOOD CELL COUNT(AUTO) 5.09 MIL/uL (4.00-5.20); RED CELL DISTRIBUTION WIDTH 15.8 % (11.5-14.5); WHITE BLOOD COUNT (AUTO) 9.1 K/uL (4.5-11.0)
[2023-10-07 21:18] LABS: BACTERIA,URINE Few /HPF (None Seen); SQUAMOUS EPITHELIAL CELL,UR Moderate /LPF (None Seen)
[2023-10-07 21:20] LABS: ANION GAP 13 mmol/L (8-16); CALCIUM, TOTAL 8.4 mg/dL (8.8-10.5); CARBON DIOXIDE 24 mmol/L (22-29); CHLORIDE 101 mmol/L (98-107); CREATININE 0.79 mg/dL (0.60-1.30); GLOMERULAR FILTR. RATE CALC > 60 mL/min (>60); GLUCOSE,RANDOM 100 mg/dL (70-110); POTASSIUM 3.9 mmol/L (3.5-5.1); SODIUM SERUM 138 mmol/L (136-145); UREA NITROGEN, BLOOD 15 mg/dL (7-18)
[2023-10-07 21:24] LABS: ALANINE AMINOTRANSFERASE 30 U/L (12-78); ALBUMIN 3.4 g/dL (3.4-5.0); ALKALINE PHOSPHATASE 129 U/L (46-116); ASPARTATE AMINOTRANSFERASE 40 U/L (15-37); BILIRUBIN,TOTAL 0.5 mg/dL (0.1-1.0); LIPASE 58 U/L (16-77)
[2023-10-07] MEDS: ONDANSETRON HCL 4 MG/2 ML VIAL IVP ONE (23:06)
[2023-10-07] MEDS: LORazepam 2 MG/ML VIAL IVP ONE (23:06)
[2023-10-07 23:21] LABS: TROPONIN I-HIGH SENSITIVITY 15 ng/L (<51)
[2023-10-07 23:22] LABS: LACTIC ACID 1.9 mmol/L (0.4-2.0)
[2023-10-07 23:38] LABS: COVID AG,FIA SOURCE NASAL SWAB
[2023-10-07 23:58] LABS: SARS-COV2 (COVID) ANTIGEN,FIA Negative (Negative)
[2023-10-07] MEDS: MAGNESIUM SULFATE 2 GM, MVI, ADULT NO.1 WITH VIT K 10 ML, THIAMINE 100 MG, FOLIC ACID 1... IV ONE (23:59)
[2023-10-08] MEDS ORDERED: SODIUM CHLORIDE 0.9% 1,000 ML IV ONE
[2023-10-08] MEDS ORDERED: SODIUM CHLORIDE 0.9% 250 ML IV ONE (00:58)
[2023-10-08 01:00] VITALS: BP 138/96; PULSE 96; RESP 20; TEMP 98.6
[2023-10-08] MEDS: CefTRIAXone 1 GM/DEXTROSE 50 ML IV SCH (01:05)
[2023-10-08] MEDS: PB/HYOSCY/ATR/SCOP/LIDO/MAALOX 55 ML BOTTLE PO ONE (01:17)
[2023-10-08] MEDS: LORazepam 2 MG TABLET PO PRN (01:41)
[2023-10-08] MEDS: SODIUM CHLORIDE 0.9% 250 ML IV ONE (04:04)
[2023-10-08 04:33] VITALS: BP 140/89; PULSE 96; RESP 18; TEMP 97.7
[2023-10-08] MEDS: LEVOTHYROXINE SODIUM 150 MCG TABLET PO SCH (06:31)
[2023-10-08] MEDS: PIPERACILLIN/TAZO 3.375 GM/D5W 50 ML IV SCH (06:32)
[2023-10-08] MEDS ORDERED: LORazepam 2 MG TABLET PO PRN (07:00)
[2023-10-08 07:17] VITALS: BP 135/82; PULSE 103; RESP 18; TEMP 98.3
[2023-10-08] MEDS: LORazepam 2 MG TABLET PO SCH (08:13)
[2023-10-08] MEDS: BENZTROPINE MESYLATE 1 MG TABLET PO SCH (08:37)
[2023-10-08] MEDS: ASPIRIN 81 MG CHEWABLE TABLET PO SCH (08:38)
[2023-10-08] MEDS: ATORVASTATIN CALCIUM 10 MG TABLET PO SCH (08:38)
[2023-10-08] MEDS: GABAPENTIN 300 MG CAPSULE PO SCH (08:38)
[2023-10-08] MEDS: SODIUM CHLORIDE 0.9% 1,000 ML IV SCH (10:00)
[2023-10-08] MEDS: LORazepam 2 MG/ML VIAL IVP PRN (14:37)
[2023-10-08 14:39] VITALS: BP 128/89; PULSE 98; RESP 18; TEMP 97.7
[2023-10-08] MEDS ORDERED: 1: MAGNESIUM SULFATE 2 GM, MVI, ADULT NO.1 WITH VIT K 10 ML, THIAMINE 100 MG, FOLIC ACID IV SCH (16:15)
[2023-10-08 20:00] VITALS: BP 126/78; PULSE 85; RESP 20; TEMP 97.3
[2023-10-08] MEDS: OLANZapine 10 MG TABLET PO SCH (20:27)
[2023-10-08] MEDS: DIVALPROEX SODIUM 500 MG ER TABLET PO SCH (20:33)
[2023-10-08] MEDS: TraZODone HCL 150 MG TABLET PO SCH (22:46)
[2023-10-09 04:45] VITALS: BP 103/57; PULSE 74; RESP 20; TEMP 97.8
[2023-10-09 07:07] LABS: BASOPHILS % (AUTO) 0.7 % (0.0-2.0); EOSINOPHILS % (AUTO) 1.5 % (1.0-6.0); HEMATOCRIT 40.7 % (36-46); LYMPHOCYTES # (AUTO) 2.1 K/uL (1.0-4.8); MEAN CORPUSCULAR HEMOGLOBIN 31.1 pg (26.0-34.0); MEAN CORPUSCULAR HGB CONC 34.4 G/dL (31.0-37.0); MEAN CORPUSCULAR VOLUME 90 fL (80-100); MONOCYTES # (AUTO) 0.5 K/uL (0.1-1.0); MONOCYTES % (AUTO) 6.7 % (2.0-9.0); NEUTROPHILS # (AUTO) 4.7 K/uL (1.8-7.7); NEUTROPHILS % (AUTO) 63.1 % (40.0-70.0); PLATELET COUNT (AUTO) 194 K/uL (150-450); RED BLOOD CELL COUNT(AUTO) 4.51 MIL/uL (4.00-5.20); RED CELL DISTRIBUTION WIDTH 16.1 % (11.5-14.5); WHITE BLOOD COUNT (AUTO) 7.4 K/uL (4.5-11.0)
[2023-10-09 07:24] LABS: ANION GAP 10 mmol/L (8-16); CALCIUM, TOTAL 8.3 mg/dL (8.8-10.5); CARBON DIOXIDE 25 mmol/L (22-29); CHLORIDE 106 mmol/L (98-107); GLOMERULAR FILTR. RATE CALC > 60 mL/min (>60); GLUCOSE,RANDOM 110 mg/dL (70-110); POTASSIUM 3.7 mmol/L (3.5-5.1); SODIUM SERUM 141 mmol/L (136-145); UREA NITROGEN, BLOOD 10 mg/dL (7-18)
[2023-10-09] MEDS ORDERED: QUET100T PO (14:01)
[2023-10-10] MEDS ORDERED: TRAZ150T79 PO (05:33)
[2023-10-10] MEDS ORDERED: QUET200T PO (05:33)
[2023-10-10] MEDS ORDERED: CEPH-558 PO (05:48)
[2023-10-10] MEDS ORDERED: LORazepam 1 MG TABLET PO PRN (07:00)
[2023-10-10] MEDS ORDERED: LORazepam 1 MG TABLET PO SCH (09:00)
[2023-10-11] MEDS ORDERED: LORazepam 1 MG TABLET PO PRN (07:00)
== END 2023-10-09 14:45 | disposition home or self-care (01) | DRG 463 ==
LOC: EMS 19:50 → 6S 23:59
PROVIDERS: ADMIT Internal Medicine; ATTEND Internal Medicine
PROC: 05H933Z Insertion of Infusion Device into Right Brachial Vein, Percutaneous Approach (ICD-10-PCS; principal; 2023-10-08)
DX: N39.0 Urinary tract infection, site not specified (principal); R45.851 Suicidal ideations; K70.30 Alcoholic cirrhosis of liver without ascites; D25.9 Leiomyoma of uterus, unspecified; E03.9 Hypothyroidism, unspecified; F10.129 Alcohol abuse with intoxication, unspecified; F31.9 Bipolar disorder, unspecified; I10 Essential (primary) hypertension; Z20.822 Contact with and (suspected) exposure to COVID-19; Z87.891 Personal history of nicotine dependence; F20.9 Schizophrenia, unspecified; R74.01 Elevation of levels of liver transaminase levels
CPT/HCPCS: 36245; 36569; 71045; 74176; 76937; 80048; 80053; 81001; 83605; 83690; 83735; 84484; 85025; 87086; 87186; 93005; 99285; G0480; J0696; J2060; J2405; J2543; J3411; J3475; J3490; J7030; J7050; 36415-L1; 36415-TC

== ENCOUNTER 2023-10-17 01:57 | Inpatient (IN) | payer MEDICAID ==
[~2023-10-17] VITALS: Ht 157.5 cm; Wt 66.4 kg
[~2023-10-17 01:57] MED LIST changes: +CEPH-558 PO; -DIVA500T53 PO; -MIDO10TA PO; +QUET100T PO; +QUET200T PO; +TRAZ150T79 PO
[2023-10-17 03:05] LABS: BASOPHILS % (AUTO) 1.7 % (0.0-2.0); HEMATOCRIT 40.1 % (36-46); HEMOGLOBIN 13.6 g/dL (12.0-16.0); LYMPHOCYTES # (AUTO) 1.9 K/uL (1.0-4.8); LYMPHOCYTES % (AUTO) 43.2 % (22.0-44.0); MEAN CORPUSCULAR HEMOGLOBIN 30.9 pg (26.0-34.0); MEAN CORPUSCULAR HGB CONC 33.9 G/dL (31.0-37.0); MEAN CORPUSCULAR VOLUME 91 fL (80-100); MONOCYTES # (AUTO) 0.5 K/uL (0.1-1.0); MONOCYTES % (AUTO) 10.9 % (2.0-9.0); NEUTROPHILS # (AUTO) 1.8 K/uL (1.8-7.7); NEUTROPHILS % (AUTO) 41.2 % (40.0-70.0); PLATELET COUNT (AUTO) 231 K/uL (150-450); RED CELL DISTRIBUTION WIDTH 17.3 % (11.5-14.5); WHITE BLOOD COUNT (AUTO) 4.4 K/uL (4.5-11.0)
[2023-10-17 03:16] LABS: ALCOHOL, BLOOD (SERUM) 19 mg/dL (0-10)
[2023-10-17 03:18] LABS: ANION GAP 10 mmol/L (8-16); CALCIUM, TOTAL 8.6 mg/dL (8.8-10.5); CARBON DIOXIDE 24 mmol/L (22-29); CHLORIDE 104 mmol/L (98-107); CREATININE 0.73 mg/dL (0.60-1.30); GLOMERULAR FILTR. RATE CALC > 60 mL/min (>60); GLUCOSE,RANDOM 100 mg/dL (70-110); SODIUM SERUM 138 mmol/L (136-145); UREA NITROGEN, BLOOD 11 mg/dL (7-18)
[2023-10-17 03:19] LABS: APPEARANCE,URINE CLEAR (CLEAR); BILIRUBIN,URINE NEGATIVE (NEGATIVE); COLOR,URINE LIGHT YELLOW (YELLOW); GLUCOSE, URINE (UA) NEGATIVE (NEGATIVE); KETONES,URINE NEGATIVE (NEGATIVE); LEUKOCYTE ESTERASE ,URINE SMALL (NEGATIVE); NITRATE,URINE NEGATIVE (NEGATIVE); OCCULT BLOOD,URINE SMALL (NEGATIVE); PH,URINE 6.5 (5.0-8.0); PROTEIN,URINE NEGATIVE (NEGATIVE); UROBILINOGEN,URINE <=1.0 mg/dL (<=1.0)
[2023-10-17 03:22] LABS: COVID AG,FIA SOURCE NASAL SWAB
[2023-10-17 03:24] LABS: ALANINE AMINOTRANSFERASE 22 U/L (12-78); ALBUMIN 2.8 g/dL (3.4-5.0); ALKALINE PHOSPHATASE 113 U/L (46-116); ASPARTATE AMINOTRANSFERASE 24 U/L (15-37); BILIRUBIN,TOTAL 0.1 mg/dL (0.1-1.0); TOTAL PROTEIN, SERUM 6.4 g/dL (6.4-8.2)
[2023-10-17 03:24] LABS: ALCOHOL, URINE DRUG SCREEN POSITIVE (NEGATIVE); AMPHET/METH SCREEN,URINE NEGATIVE (NEGATIVE); BARBITURATE SCREEN, URINE NEGATIVE (NEGATIVE); BENZODIAZEPINES SCREEN,URINE NEGATIVE (NEGATIVE); CANNABINOID SCREEN,URINE NEGATIVE (NEGATIVE); COCAINE SCREEN,URINE NEGATIVE (NEGATIVE); METHADONE SCREEN, URINE NEGATIVE (NEGATIVE); OPIATE SCREEN,URINE NEGATIVE (NEGATIVE); PHENCYCLIDINE SCREEN,URINE NEGATIVE (NEGATIVE)
[2023-10-17] MEDS: ZOLPIDEM TARTRATE 10 MG TABLET PO PRN (03:24)
[2023-10-17] MEDS: LORazepam 2 MG TABLET PO PRN (03:24)
[2023-10-17] MEDS: HALOPERIDOL 5 MG TABLET PO PRN (03:24)
[2023-10-17 03:29] LABS: PH,URINE DRUG SCREEN 6.5 (5.0-8.0)
[2023-10-17 03:46] LABS: SARS-COV2 (COVID) ANTIGEN,FIA Negative (Negative)
[2023-10-17 03:48] LABS: BACTERIA,URINE None Seen /HPF (None Seen); RBC,URINE 0-2 /HPF (0-2); SQUAMOUS EPITHELIAL CELL,UR Few /LPF (None Seen); WBC,URINE 0-2 /HPF (0-5)
[2023-10-17 05:32] VITALS: BP 137/87; PULSE 84; RESP 18; TEMP 98.2; O2SAT 98
[2023-10-17] MEDS ORDERED: MAG HYDROX/ALUMINUM HYD/SIMETH ES 30 ML SUSPENSION UDCUP PO PRN (07:00)
[2023-10-17] MEDS ORDERED: MAGNESIUM HYDROXIDE SUSPENSION 30 ML UDCUP PO PRN (07:00)
[2023-10-17] MEDS ORDERED: IBUPROFEN 400 MG TABLET PO PRN (07:00)
[2023-10-17] MEDS ORDERED: ALBUTEROL SULFATE HFA 90 MCG/PUFF 8 GM INHALER IH PRN (07:00)
[2023-10-17] MEDS ORDERED: LEVOTHYROXINE SODIUM 75 MCG TABLET PO SCH (07:00)
[2023-10-17] MEDS ORDERED: ONDANSETRON HCL 4 MG TABLET PO PRN (07:00)
[2023-10-17] MEDS ORDERED: DOCUSATE SODIUM 100 MG CAPSULE PO PRN (07:00)
[2023-10-17] MEDS ORDERED: PETROLATUM,WHITE 28 GM JELLY TP PRN (07:00)
[2023-10-17] MEDS ORDERED: ACETAMINOPHEN 325 MG TABLET PO PRN (07:00)
[2023-10-17] MEDS ORDERED: GuaiFENesin/D-METHORPHAN [SUGAR-FREE] 200-20MG/10 ML SYRUP UDCUP PO PRN (07:00)
[2023-10-17] MEDS ORDERED: LOPERAMIDE HCL 2 MG CAPSULE PO PRN (07:00)
[2023-10-17] MEDS ORDERED: CloNIDine HCL 0.1 MG TABLET PO PRN (07:00)
[2023-10-17] MEDS: LEVOTHYROXINE SODIUM 75 MCG TABLET PO SCH (07:25)
[2023-10-17] MEDS: ASPIRIN 81 MG CHEWABLE TABLET PO SCH (08:55)
[2023-10-17] MEDS: CEPHALEXIN MONOHYDRATE 500 MG CAPSULE PO SCH (08:56)
[2023-10-17] MEDS: ATORVASTATIN CALCIUM 10 MG TABLET PO SCH (08:56)
[2023-10-17] MEDS: GABAPENTIN 300 MG CAPSULE PO SCH (08:56)
[2023-10-17] MEDS ORDERED: ASPIRIN 81 MG CHEWABLE TABLET PO SCH (09:00)
[2023-10-17] MEDS ORDERED: GABAPENTIN 300 MG CAPSULE PO SCH (09:00)
[2023-10-17] MEDS ORDERED: CEPHALEXIN MONOHYDRATE 500 MG CAPSULE PO SCH (09:00)
[2023-10-17 10:28] VITALS: BP 122/70; PULSE 97; RESP 18; TEMP 96.7; O2SAT 97
[2023-10-17] MEDS ORDERED: ARIP882S2 IM (16:51)
[2023-10-17] MEDS ORDERED: TRAZ-283 PO (16:51)
[2023-10-17] MEDS ORDERED: ASPI-1450 PO (17:01)
[2023-10-17] MEDS: TraZODone HCL 150 MG TABLET PO SCH (21:11)
[2023-10-17 21:26] VITALS: BP 128/82; PULSE 66; RESP 18; TEMP 98.1; O2SAT 98
[2023-10-18 08:58] LABS: BASOPHILS % (AUTO) 1.1 % (0.0-2.0); EOSINOPHILS % (AUTO) 1.8 % (1.0-6.0); HEMATOCRIT 41.5 % (36-46); HEMOGLOBIN 13.8 g/dL (12.0-16.0); LYMPHOCYTES # (AUTO) 1.5 K/uL (1.0-4.8); LYMPHOCYTES % (AUTO) 26.2 % (22.0-44.0); MEAN CORPUSCULAR HEMOGLOBIN 30.6 pg (26.0-34.0); MEAN CORPUSCULAR HGB CONC 33.3 G/dL (31.0-37.0); MEAN CORPUSCULAR VOLUME 92 fL (80-100); MONOCYTES # (AUTO) 0.6 K/uL (0.1-1.0); MONOCYTES % (AUTO) 9.9 % (2.0-9.0); NEUTROPHILS # (AUTO) 3.6 K/uL (1.8-7.7); PLATELET COUNT (AUTO) 221 K/uL (150-450); RED BLOOD CELL COUNT(AUTO) 4.52 MIL/uL (4.00-5.20); WHITE BLOOD COUNT (AUTO) 5.9 K/uL (4.5-11.0)
[2023-10-18] MEDS: NICOTINE 14 MG/24 HOUR PATCH TD PRN (09:00)
[2023-10-18 09:10] LABS: HEMOGLOBIN A1C 5.1 % (3.8-5.6)
[2023-10-18 09:21] LABS: ALANINE AMINOTRANSFERASE 23 U/L (12-78); ALBUMIN 2.7 g/dL (3.4-5.0); ALKALINE PHOSPHATASE 119 U/L (46-116); ANION GAP 11 mmol/L (8-16); ASPARTATE AMINOTRANSFERASE 24 U/L (15-37); BILIRUBIN,TOTAL 0.2 mg/dL (0.1-1.0); CALCIUM, TOTAL 8.5 mg/dL (8.8-10.5); CARBON DIOXIDE 25 mmol/L (22-29); CHLORIDE 101 mmol/L (98-107); CREATININE 0.91 mg/dL (0.60-1.30); GLOMERULAR FILTR. RATE CALC > 60 mL/min (>60); GLUCOSE,RANDOM 170 mg/dL (70-110); POTASSIUM 3.8 mmol/L (3.5-5.1); SODIUM SERUM 137 mmol/L (136-145); THYROID STIMULATING HORMONE 2.97 uIU/mL (0.36-3.74); TOTAL PROTEIN, SERUM 6.3 g/dL (6.4-8.2); UREA NITROGEN, BLOOD 15 mg/dL (7-18)
[2023-10-18 10:14] VITALS: BP 127/66; PULSE 104; RESP 18; TEMP 97.2; O2SAT 97
[2023-10-18 21:47] VITALS: BP 127/66; PULSE 104; RESP 18; TEMP 97.2; O2SAT 97
[2023-10-19 08:40] VITALS: BP 140/75; PULSE 78; RESP 18; TEMP 98; O2SAT 97
[2023-10-19] MEDS: MUPIROCIN CALCIUM 2% 22 GM OINTMENT NASAL SCH (18:54)
[2023-10-19] MEDS: QUEtiapine FUMARATE 200 MG TABLET PO SCH (20:35)
[2023-10-19 20:49] VITALS: BP 110/60; PULSE 80; RESP 18; TEMP 97.4; O2SAT 97
[2023-10-20 09:33] VITALS: BP 130/68; PULSE 100; RESP 18; TEMP 98.2; O2SAT 96
[2023-10-20 20:06] VITALS: BP 132/76; PULSE 98; RESP 18; TEMP 97.1; O2SAT 97
[2023-10-21 09:38] VITALS: BP 104/72; PULSE 103; RESP 18; TEMP 97.7; O2SAT 100
[2023-10-21] MEDS: NICOTINE 14 MG/24 HOUR PATCH TD SCH (18:41)
[2023-10-21 21:14] VITALS: BP 130/83; PULSE 86; RESP 18; TEMP 97.4; O2SAT 97
[2023-10-22 10:24] VITALS: BP 104/56; PULSE 86; RESP 18; TEMP 97.5; O2SAT 96
[2023-10-22 13:11] VITALS: BP 120/70; PULSE 72; RESP 18
[2023-10-22] MEDS: DENTURE ADHESIVE 68 GM CREAM DT PRN (17:10)
[2023-10-22 20:59] VITALS: BP 109/62; PULSE 91; RESP 18; TEMP 97.9; O2SAT 98
[2023-10-23 09:42] VITALS: BP 120/71; PULSE 97; RESP 18; TEMP 98; O2SAT 99
[2023-10-23] MEDS: QUEtiapine FUMARATE 100 MG TABLET PO SCH (12:51)
[2023-10-23 20:51] VITALS: BP 100/71; PULSE 79; RESP 18; TEMP 97.9; O2SAT 99
[2023-10-24 08:45] VITALS: BP 110/81; PULSE 97; RESP 18; TEMP 96.9; O2SAT 96
[2023-10-24 21:26] VITALS: BP 105/66; PULSE 83; RESP 18; TEMP 97.7; O2SAT 96
[2023-10-25 03:30] VITALS: BP 104/60; PULSE 82; RESP 18; TEMP 96; O2SAT 95
[2023-10-25 08:09] VITALS: BP 122/65; PULSE 76; RESP 18; TEMP 97.4; O2SAT 98
[2023-10-25 21:31] VITALS: BP 106/70; PULSE 80; RESP 18; TEMP 96.8; O2SAT 96
[2023-10-26 09:22] VITALS: BP 104/57; PULSE 88; RESP 18; TEMP 97.4; O2SAT 97
[2023-10-26] MEDS ORDERED: QUET200T30 PO (14:22)
[2023-10-26] MEDS ORDERED: QUET100T34 PO (14:22)
[2023-10-26] MEDS ORDERED: GABA-1181 PO (14:22)
[2023-10-26] MEDS ORDERED: TRAZ-283 PO (14:22)
[2023-10-31] MEDS ORDERED: ARIPiprazole LAUROXIL ER SUSPENSION 882 MG/3.2 ML SYRINGE IM SCH (09:00)
== END 2023-10-26 15:05 | disposition home or self-care (01) | DRG 750 ==
LOC: EMS 01:57 → 3EI 03:13
PROVIDERS: ADMIT Psychiatry & Neurology Psychiatry; ATTEND Psychiatry & Neurology Psychiatry
PROC: GZHZZZZ Group Psychotherapy (ICD-10-PCS; principal; 2023-10-17)
PROC: GZ51ZZZ Individual Psychotherapy, Behavioral (ICD-10-PCS; 2023-10-17)
DX: F25.1 Schizoaffective disorder, depressive type (principal); R45.851 Suicidal ideations; K70.30 Alcoholic cirrhosis of liver without ascites; E03.9 Hypothyroidism, unspecified; I10 Essential (primary) hypertension; Z20.822 Contact with and (suspected) exposure to COVID-19; D25.9 Leiomyoma of uterus, unspecified; G62.9 Polyneuropathy, unspecified; N39.0 Urinary tract infection, site not specified; G47.00 Insomnia, unspecified; E78.5 Hyperlipidemia, unspecified; Z87.891 Personal history of nicotine dependence
CPT/HCPCS: 80053; 80061; 80307; 81001; 83036; 84443; 85025; 87081; 99285; G0480

== ENCOUNTER 2023-11-27 20:28 | Inpatient (IN) | payer MEDICAID ==
[~2023-11-27] VITALS: Ht 152.4 cm; Wt 67.3 kg
[~2023-11-27 20:28] MED LIST changes: -ASPI81 PO; -ATOR10TA69 PO; -BENZ1TAB84 PO; -CEPH-558 PO; -LEVO150T11 PO; -OLAN10TA74 PO; -QUET100T PO; +QUET100T34 PO; -QUET200T PO; +QUET200T30 PO; +TRAZ-283 PO; -TRAZ150T79 PO; -TRAZ150T80 PO
[2023-11-27 21:35] LABS: BASOPHILS % (AUTO) 1.3 % (0.0-2.0); EOSINOPHILS % (AUTO) 2.1 % (1.0-6.0); HEMOGLOBIN 13.6 g/dL (12.0-16.0); LYMPHOCYTES # (AUTO) 2.5 K/uL (1.0-4.8); LYMPHOCYTES % (AUTO) 24.3 % (22.0-44.0); MEAN CORPUSCULAR HEMOGLOBIN 31.4 pg (26.0-34.0); MEAN CORPUSCULAR VOLUME 92 fL (80-100); MONOCYTES # (AUTO) 0.5 K/uL (0.1-1.0); MONOCYTES % (AUTO) 5.1 % (2.0-9.0); NEUTROPHILS # (AUTO) 6.9 K/uL (1.8-7.7); NEUTROPHILS % (AUTO) 67.2 % (40.0-70.0); PLATELET COUNT (AUTO) 274 K/uL (150-450); RED BLOOD CELL COUNT(AUTO) 4.34 MIL/uL (4.00-5.20); WHITE BLOOD COUNT (AUTO) 10.2 K/uL (4.5-11.0)
[2023-11-27 21:59] LABS: ANION GAP 10 mmol/L (8-16); CALCIUM, TOTAL 9.3 mg/dL (8.8-10.5); CARBON DIOXIDE 25 mmol/L (22-29); CHLORIDE 103 mmol/L (98-107); GLOMERULAR FILTR. RATE CALC > 60 mL/min (>60); GLUCOSE,RANDOM 141 mg/dL (70-110); POTASSIUM 3.6 mmol/L (3.5-5.1); SODIUM SERUM 138 mmol/L (136-145); UREA NITROGEN, BLOOD 12 mg/dL (7-18)
[2023-11-27 22:02] LABS: B-TYPE NATRIURETIC PEPTIDE 10 pg/mL (0-100)
[2023-11-27 22:04] LABS: TROPONIN I-HIGH SENSITIVITY 12 ng/L (<51)
[2023-11-27 22:05] LABS: ALANINE AMINOTRANSFERASE 19 U/L (12-78); ALBUMIN 3.1 g/dL (3.4-5.0); ALKALINE PHOSPHATASE 117 U/L (46-116); ASPARTATE AMINOTRANSFERASE 15 U/L (15-37); BILIRUBIN,TOTAL 0.3 mg/dL (0.1-1.0); CREATINE KINASE, TOTAL ONLY 35 U/L (26-192); TOTAL PROTEIN, SERUM 6.4 g/dL (6.4-8.2)
[2023-11-27 22:46] LABS: COVID AG,FIA SOURCE NASAL SWAB
[2023-11-27 22:56] LABS: SARS-COV2 (COVID) ANTIGEN,FIA Negative (Negative)
[2023-11-27] MEDS: LORazepam 1 MG TABLET PO ONE (23:00)
[2023-11-27 23:37] LABS: APPEARANCE,URINE CLEAR (CLEAR); BILIRUBIN,URINE NEGATIVE (NEGATIVE); COLOR,URINE COLORLESS (YELLOW); GLUCOSE, URINE (UA) NEGATIVE (NEGATIVE); KETONES,URINE NEGATIVE (NEGATIVE); LEUKOCYTE ESTERASE ,URINE SMALL (NEGATIVE); NITRATE,URINE NEGATIVE (NEGATIVE); OCCULT BLOOD,URINE TRACE (NEGATIVE); PH,URINE 6.5 (5.0-8.0); PROTEIN,URINE NEGATIVE (NEGATIVE); SPECIFIC GRAVITIY, URINE 1.005 (1.003-1.030); UROBILINOGEN,URINE <=1.0 mg/dL (<=1.0)
[2023-11-27 23:38] LABS: BACTERIA,URINE None Seen /HPF (None Seen); RBC,URINE 0-2 /HPF (0-2); SQUAMOUS EPITHELIAL CELL,UR Few /LPF (None Seen)
[2023-11-28 01:52] LABS: PH,URINE DRUG SCREEN 6.5 (5.0-8.0)
[2023-11-28 01:58] LABS: AMPHET/METH SCREEN,URINE NEGATIVE (NEGATIVE); BARBITURATE SCREEN, URINE NEGATIVE (NEGATIVE); BENZODIAZEPINES SCREEN,URINE NEGATIVE (NEGATIVE); CANNABINOID SCREEN,URINE NEGATIVE (NEGATIVE); COCAINE SCREEN,URINE NEGATIVE (NEGATIVE); METHADONE SCREEN, URINE NEGATIVE (NEGATIVE); OPIATE SCREEN,URINE NEGATIVE (NEGATIVE); PHENCYCLIDINE SCREEN,URINE NEGATIVE (NEGATIVE)
[2023-11-28 02:01] LABS: ALCOHOL, URINE DRUG SCREEN NEGATIVE (NEGATIVE)
[2023-11-28 04:33] VITALS: BP 121/73; PULSE 77; RESP 18; TEMP 97.5; O2SAT 97
[2023-11-28] MEDS: LORazepam 2 MG TABLET PO PRN (06:42)
[2023-11-28] MEDS: HALOPERIDOL 5 MG TABLET PO PRN (06:42)
[2023-11-28] MEDS ORDERED: ALBUTEROL SULFATE HFA 90 MCG/PUFF 8 GM INHALER IH PRN (06:45)
[2023-11-28] MEDS ORDERED: GuaiFENesin/D-METHORPHAN [SUGAR-FREE] 200-20MG/10 ML SYRUP UDCUP PO PRN (06:45)
[2023-11-28] MEDS ORDERED: MAGNESIUM HYDROXIDE SUSPENSION 30 ML UDCUP PO PRN (06:45)
[2023-11-28] MEDS ORDERED: LOPERAMIDE HCL 2 MG CAPSULE PO PRN (06:45)
[2023-11-28] MEDS ORDERED: ONDANSETRON HCL 4 MG TABLET PO PRN (06:45)
[2023-11-28] MEDS ORDERED: PETROLATUM,WHITE 28 GM JELLY TP PRN (06:45)
[2023-11-28] MEDS ORDERED: ACETAMINOPHEN 325 MG TABLET PO PRN (06:45)
[2023-11-28] MEDS ORDERED: CloNIDine HCL 0.1 MG TABLET PO PRN (06:45)
[2023-11-28] MEDS ORDERED: DOCUSATE SODIUM 100 MG CAPSULE PO PRN (06:45)
[2023-11-28] MEDS ORDERED: IBUPROFEN 400 MG TABLET PO PRN (06:45)
[2023-11-28] MEDS: GABAPENTIN 300 MG CAPSULE PO SCH (08:06)
[2023-11-28 09:48] VITALS: BP 97/59; PULSE 80; RESP 19; TEMP 96.6; O2SAT 96
[2023-11-28 11:07] VITALS: BP 136/75; PULSE 86; RESP 18; O2SAT 97
[2023-11-28] MEDS: NICOTINE 14 MG/24 HOUR PATCH TD PRN (11:20)
[2023-11-28] MEDS: QUEtiapine FUMARATE 100 MG TABLET PO SCH (16:46)
[2023-11-28] MEDS: TraZODone HCL 150 MG TABLET PO SCH (20:07)
[2023-11-28] MEDS: QUEtiapine FUMARATE 200 MG TABLET PO SCH (20:07)
[2023-11-28 21:36] VITALS: BP 104/56; PULSE 84; RESP 18; TEMP 97; O2SAT 97
[2023-11-28] MEDS: ZOLPIDEM TARTRATE 10 MG TABLET PO PRN (21:55)
[2023-11-29] MEDS: NICOTINE 21 MG/24 HOUR PATCH TD SCH (08:24)
[2023-11-29 08:45] LABS: HEMOGLOBIN A1C 5.2 % (3.8-5.6)
[2023-11-29 09:09] LABS: CHOL/HDL RATIO 4.1 (3.9-5.7); THYROID STIMULATING HORMONE 19.54 uIU/mL (0.36-3.74)
[2023-11-29 09:43] VITALS: BP 132/77; PULSE 90; RESP 18; TEMP 98; O2SAT 97
[2023-11-29] MEDS: SIMVASTATIN 10 MG TABLET PO SCH (20:56)
[2023-11-29 21:48] VITALS: BP 109/59; PULSE 67; RESP 18; TEMP 97.3; O2SAT 98
[2023-11-30] MEDS: ChlorproMAZINE HCL 100 MG TABLET PO SCH (08:25)
[2023-11-30 08:51] VITALS: BP 119/62; PULSE 98; RESP 18; TEMP 97.4; O2SAT 96
[2023-11-30 20:20] VITALS: BP 97/58; PULSE 88; RESP 18; TEMP 96.7; O2SAT 95
[2023-12-01 08:53] VITALS: BP 132/88; PULSE 85; RESP 18; TEMP 97.3; O2SAT 97
[2023-12-01 20:03] VITALS: BP 95/60; PULSE 70; RESP 18; TEMP 97; O2SAT 99
[2023-12-02 09:36] VITALS: BP 132/86; PULSE 97; RESP 18; TEMP 96.8; O2SAT 97
[2023-12-02 20:32] VITALS: BP 112/71; PULSE 83; RESP 18; TEMP 97.7; O2SAT 98
[2023-12-03 08:53] VITALS: BP 114/70; PULSE 60; RESP 16; TEMP 97.6; O2SAT 99
[2023-12-03] MEDS: ChlorproMAZINE HCL 100 MG TABLET PO SCH (20:53)
[2023-12-03 21:38] VITALS: BP 122/63; PULSE 80; RESP 18; TEMP 97.7; O2SAT 99
[2023-12-04 10:27] VITALS: BP 108/69; PULSE 88; RESP 18; TEMP 98.3; O2SAT 95
[2023-12-04 21:08] VITALS: BP 103/64; PULSE 80; PULSE 85; RESP 18; TEMP 97.6; O2SAT 97
[2023-12-05] MEDS: LORazepam 2 MG TABLET PO PRN (08:03)
[2023-12-05 11:04] VITALS: BP 103/70; PULSE 84; RESP 16; TEMP 96.7
[2023-12-05 20:03] VITALS: BP 111/69; PULSE 97; RESP 18; TEMP 96.8; O2SAT 98
[2023-12-06 08:05] VITALS: BP 128/75; PULSE 97; RESP 18; TEMP 97.3; O2SAT 97
[2023-12-06 11:59] VITALS: BP 128/75; PULSE 104; RESP 16; TEMP 97.3; O2SAT 97
[2023-12-06 20:01] VITALS: BP 102/68; PULSE 78; RESP 18; TEMP 97.6; O2SAT 98
[2023-12-07 09:53] VITALS: BP 118/80; PULSE 95; RESP 18; TEMP 97.9; O2SAT 98
[2023-12-07] MEDS: BusPIRone HCL 5 MG TABLET PO SCH (10:35)
[2023-12-07] MEDS: ChlorproMAZINE HCL 100 MG TABLET PO SCH (13:53)
[2023-12-07] MEDS: MAG HYDROX/ALUMINUM HYD/SIMETH ES 30 ML SUSPENSION UDCUP PO PRN (15:34)
[2023-12-07 21:30] VITALS: BP 102/85; PULSE 93; RESP 18; TEMP 97.2; O2SAT 98
[2023-12-08 11:18] VITALS: BP 115/77; PULSE 87; RESP 18; TEMP 96.8; O2SAT 98
[2023-12-08 21:51] VITALS: BP 96/62; PULSE 86; RESP 18; TEMP 97.5; O2SAT 95
[2023-12-08] MEDS ORDERED: GABA-1181 PO (22:23)
[2023-12-08] MEDS ORDERED: TRAZ-283 PO (22:23)
[2023-12-08] MEDS ORDERED: CHLO100T42 PO (22:23)
[2023-12-08] MEDS ORDERED: BUSP5TAB20 PO (22:23)
[2023-12-09 08:30] VITALS: BP 123/78; PULSE 76; RESP 18; TEMP 97; O2SAT 97
[2023-12-09] MEDS ORDERED: SIMV-259 PO (11:27)
== END 2023-12-09 12:05 | disposition home or self-care (01) | DRG 750 ==
LOC: EMS 20:28 → 3EI 11-28 01:13
PROVIDERS: ADMIT Psychiatry & Neurology Psychiatry; ATTEND Psychiatry & Neurology Psychiatry
PROC: GZHZZZZ Group Psychotherapy (ICD-10-PCS; principal; 2023-11-28)
PROC: GZ52ZZZ Individual Psychotherapy, Cognitive (ICD-10-PCS; 2023-11-28)
DX: F25.1 Schizoaffective disorder, depressive type (principal); R45.851 Suicidal ideations; K70.30 Alcoholic cirrhosis of liver without ascites; D25.9 Leiomyoma of uterus, unspecified; Z20.822 Contact with and (suspected) exposure to COVID-19; F10.20 Alcohol dependence, uncomplicated; R07.9 Chest pain, unspecified; E03.9 Hypothyroidism, unspecified; F41.9 Anxiety disorder, unspecified; G47.00 Insomnia, unspecified; I10 Essential (primary) hypertension; F17.210 Nicotine dependence, cigarettes, uncomplicated; Y90.9 Presence of alcohol in blood, level not specified; Z79.899 Other long term (current) drug therapy
CPT/HCPCS: 71045; 80053; 80061; 80307; 81001; 82550; 83036; 83880; 84443; 84484; 85025; 87081; 93005; 99285; 36415-L1; 36415-TC

== ENCOUNTER 2024-01-10 19:40 | Inpatient (IN) | payer MEDICAID ==
[~2024-01-10] VITALS: Ht 152.4 cm; Wt 71.8 kg
[~2024-01-10 19:40] MED LIST changes: +BUSP5TAB20 PO; +CHLO100T42 PO; -QUET100T34 PO; -QUET200T30 PO; +SIMV-259 PO
[2024-01-10 22:33] LABS: AMPHET/METH SCREEN,URINE NEGATIVE (NEGATIVE); BARBITURATE SCREEN, URINE NEGATIVE (NEGATIVE); BENZODIAZEPINES SCREEN,URINE NEGATIVE (NEGATIVE); CANNABINOID SCREEN,URINE POSITIVE (NEGATIVE); COCAINE SCREEN,URINE NEGATIVE (NEGATIVE); METHADONE SCREEN, URINE NEGATIVE (NEGATIVE); OPIATE SCREEN,URINE NEGATIVE (NEGATIVE); PHENCYCLIDINE SCREEN,URINE NEGATIVE (NEGATIVE)
[2024-01-10] MEDS: LORazepam 2 MG TABLET PO ONE (22:36)
[2024-01-10 22:38] LABS: ALCOHOL, URINE DRUG SCREEN NEGATIVE (NEGATIVE)
[2024-01-10 22:41] LABS: BASOPHILS % (AUTO) 0.9 % (0.0-2.0); EOSINOPHILS % (AUTO) 0.8 % (1.0-6.0); HEMATOCRIT 43.3 % (36-46); HEMOGLOBIN 14.2 g/dL (12.0-16.0); LYMPHOCYTES # (AUTO) 2.8 K/uL (1.0-4.8); LYMPHOCYTES % (AUTO) 24.8 % (22.0-44.0); MEAN CORPUSCULAR HEMOGLOBIN 30.6 pg (26.0-34.0); MEAN CORPUSCULAR HGB CONC 32.8 G/dL (31.0-37.0); MEAN CORPUSCULAR VOLUME 93 fL (80-100); MONOCYTES # (AUTO) 0.9 K/uL (0.1-1.0); MONOCYTES % (AUTO) 7.8 % (2.0-9.0); NEUTROPHILS # (AUTO) 7.4 K/uL (1.8-7.7); NEUTROPHILS % (AUTO) 65.7 % (40.0-70.0); PLATELET COUNT (AUTO) 268 K/uL (150-450); RED BLOOD CELL COUNT(AUTO) 4.65 MIL/uL (4.00-5.20); RED CELL DISTRIBUTION WIDTH 14.9 % (11.5-14.5); WHITE BLOOD COUNT (AUTO) 11.3 K/uL (4.5-11.0)
[2024-01-10 23:01] LABS: ALCOHOL, BLOOD (SERUM) < 3 mg/dL (0-10)
[2024-01-10] MEDS: NICOTINE 14 MG/24 HOUR PATCH TD ONE (23:08)
[2024-01-10 23:29] LABS: ANION GAP 11 mmol/L (8-16); CALCIUM, TOTAL 9.6 mg/dL (8.8-10.5); CARBON DIOXIDE 24 mmol/L (22-29); CHLORIDE 105 mmol/L (98-107); CREATININE 0.98 mg/dL (0.60-1.30); GLOMERULAR FILTR. RATE CALC 56 mL/min (>60); GLUCOSE,RANDOM 122 mg/dL (70-110); POTASSIUM 3.2 mmol/L (3.5-5.1); SODIUM SERUM 140 mmol/L (136-145); UREA NITROGEN, BLOOD 8 mg/dL (7-18)
[2024-01-10 23:38] LABS: ALANINE AMINOTRANSFERASE 21 U/L (12-78); ALBUMIN 3.7 g/dL (3.4-5.0); ALKALINE PHOSPHATASE 135 U/L (46-116); ASPARTATE AMINOTRANSFERASE 19 U/L (15-37); BILIRUBIN,TOTAL 0.4 mg/dL (0.1-1.0); TOTAL PROTEIN, SERUM 7.3 g/dL (6.4-8.2)
[2024-01-11 02:36] LABS: COVID AG,FIA SOURCE NASAL SWAB
[2024-01-11 02:45] LABS: SARS-COV2 (COVID) ANTIGEN,FIA Negative (Negative)
[2024-01-11] MEDS: LORazepam 1 MG TABLET PO ONE ×2 (09:08→17:56)
[2024-01-11 23:45] VITALS: BP 125/77; PULSE 93; RESP 18; TEMP 98; O2SAT 96
[2024-01-12] MEDS ORDERED: ACETAMINOPHEN 325 MG TABLET PO PRN (01:15)
[2024-01-12] MEDS: ZOLPIDEM TARTRATE 10 MG TABLET PO PRN (01:20)
[2024-01-12] MEDS: LORazepam 2 MG TABLET PO PRN (01:20)
[2024-01-12] MEDS: HALOPERIDOL 5 MG TABLET PO PRN (08:28)
[2024-01-12] MEDS: NICOTINE 14 MG/24 HOUR PATCH TD PRN (08:55)
[2024-01-12 10:06] VITALS: BP 133/78; PULSE 100; RESP 19; TEMP 98; O2SAT 95
[2024-01-12] MEDS: BusPIRone HCL 5 MG TABLET PO SCH (16:19)
[2024-01-12] MEDS: ChlorproMAZINE HCL 100 MG TABLET PO SCH (16:19)
[2024-01-12] MEDS: SIMVASTATIN 10 MG TABLET PO SCH (20:30)
[2024-01-12] MEDS: TraZODone HCL 150 MG TABLET PO SCH (20:30)
[2024-01-12 20:35] VITALS: BP 132/84; PULSE 86; RESP 18; TEMP 97.3; O2SAT 97
[2024-01-13 06:48] LABS: BASOPHILS % (AUTO) 0.5 % (0.0-2.0); EOSINOPHILS % (AUTO) 3.2 % (1.0-6.0); HEMATOCRIT 42.1 % (36-46); HEMOGLOBIN 14.1 g/dL (12.0-16.0); LYMPHOCYTES # (AUTO) 1.8 K/uL (1.0-4.8); LYMPHOCYTES % (AUTO) 26.6 % (22.0-44.0); MEAN CORPUSCULAR HGB CONC 33.6 G/dL (31.0-37.0); MEAN CORPUSCULAR VOLUME 93 fL (80-100); MONOCYTES # (AUTO) 0.6 K/uL (0.1-1.0); NEUTROPHILS % (AUTO) 60.7 % (40.0-70.0); PLATELET COUNT (AUTO) 227 K/uL (150-450); RED BLOOD CELL COUNT(AUTO) 4.56 MIL/uL (4.00-5.20); RED CELL DISTRIBUTION WIDTH 14.3 % (11.5-14.5); WHITE BLOOD COUNT (AUTO) 6.6 K/uL (4.5-11.0)
[2024-01-13 07:14] LABS: ALANINE AMINOTRANSFERASE 21 U/L (12-78); ALBUMIN 3.2 g/dL (3.4-5.0); ALKALINE PHOSPHATASE 120 U/L (46-116); ANION GAP 6 mmol/L (8-16); ASPARTATE AMINOTRANSFERASE 19 U/L (15-37); BILIRUBIN,TOTAL 0.4 mg/dL (0.1-1.0); CALCIUM, TOTAL 8.9 mg/dL (8.8-10.5); CARBON DIOXIDE 30 mmol/L (22-29); CHLORIDE 105 mmol/L (98-107); CHOL/HDL RATIO 2.8 (3.9-5.7); CHOLESTEROL 198 mg/dL (131-200); CREATININE 0.74 mg/dL (0.60-1.30); FREE T4 (FREE THYROXINE) 0.96 ng/dL (0.76-1.46); GLOMERULAR FILTR. RATE CALC > 60 mL/min (>60); GLUCOSE,RANDOM 110 mg/dL (70-110); HDL CHOLESTEROL 71 mg/dL (40-60); LDL CHOL (CALC.) 102 mg/dL (0-130); POTASSIUM 4.2 mmol/L (3.5-5.1); SODIUM SERUM 141 mmol/L (136-145); T4 (THYROXINE) 8.4 mcg/dL (4.7-13.3); THYROID STIMULATING HORMONE 6.77 uIU/mL (0.36-3.74); TOTAL PROTEIN, SERUM 6.7 g/dL (6.4-8.2); TRIGLYCERIDES 124 mg/dL (15-150); UREA NITROGEN, BLOOD 12 mg/dL (7-18)
[2024-01-13] MEDS: POTASSIUM CHLORIDE 20 MEQ ER TABLET PO ONE (08:49)
[2024-01-13 09:21] VITALS: BP 130/84; PULSE 100; RESP 18; TEMP 98.5; O2SAT 95
[2024-01-13 23:00] VITALS: BP 105/72; PULSE 93; RESP 18; TEMP 97.2; O2SAT 93
[2024-01-14 10:49] VITALS: BP 111/67; PULSE 91; RESP 17; TEMP 97; O2SAT 95
[2024-01-15 03:14] VITALS: RESP 18
[2024-01-15 09:00] VITALS: BP 93/55; PULSE 78; RESP 18; TEMP 96.6
[2024-01-15 20:05] VITALS: BP 124/81; PULSE 82; RESP 18; TEMP 97.4
[2024-01-16 15:01] VITALS: BP 126/82; PULSE 99; RESP 18; TEMP 96.7; O2SAT 98
[2024-01-16 15:06] VITALS: BP 126/82; PULSE 99; TEMP 96.7
[2024-01-16 20:46] VITALS: BP 114/73; PULSE 96; RESP 17; TEMP 97.8; O2SAT 97
[2024-01-17] MEDS ORDERED: CloNIDine HCL 0.1 MG TABLET PO PRN (05:00)
[2024-01-17] MEDS ORDERED: BENZOCAINE/MENTHOL LOZENGE PO PRN (05:00)
[2024-01-17] MEDS ORDERED: PETROLATUM,WHITE 28 GM JELLY TP PRN (05:00)
[2024-01-17] MEDS ORDERED: MAGNESIUM HYDROXIDE SUSPENSION 30 ML UDCUP PO PRN (05:00)
[2024-01-17] MEDS ORDERED: BACITRACIN 28 GM OINTMENT TP PRN (05:00)
[2024-01-17] MEDS ORDERED: LOPERAMIDE HCL 2 MG CAPSULE PO PRN (05:00)
[2024-01-17] MEDS ORDERED: DOCUSATE SODIUM 100 MG CAPSULE PO PRN (05:00)
[2024-01-17] MEDS ORDERED: OMEPRAZOLE 20 MG CAPSULE PO PRN (05:00)
[2024-01-17] MEDS ORDERED: MAG HYDROX/ALUMINUM HYD/SIMETH ES 30 ML SUSPENSION UDCUP PO PRN (05:00)
[2024-01-17] MEDS ORDERED: ALBUTEROL SULFATE HFA 90 MCG/PUFF 8 GM INHALER IH PRN (05:00)
[2024-01-17] MEDS ORDERED: ONDANSETRON HCL 4 MG TABLET PO PRN (05:00)
[2024-01-17 08:30] VITALS: BP 102/57; PULSE 95; RESP 18; TEMP 97.6; O2SAT 95
[2024-01-17 22:43] VITALS: BP 90/44; PULSE 80; RESP 18; TEMP 97.5; O2SAT 100
[2024-01-18 08:00] VITALS: BP 110/63; PULSE 99; RESP 18; TEMP 97.4; O2SAT 99
[2024-01-18] MEDS: ACETAMINOPHEN 325 MG TABLET PO PRN (18:12)
[2024-01-18 22:09] VITALS: BP 114/76; PULSE 89; RESP 18; TEMP 97.8
[2024-01-19 08:00] VITALS: BP_SYST 122; BP_SYST 149; BP_DIAS 75; BP_DIAS 92; PULSE 98; RESP 17; RESP 18; TEMP 97; TEMP 97.2
[2024-01-19 17:18] VITALS: BP 127/69; PULSE 82; RESP 17; TEMP 97.6; O2SAT 100
[2024-01-19] MEDS: IBUPROFEN 600 MG TABLET PO PRN (17:18)
[2024-01-19 20:29] VITALS: BP 124/80; PULSE 86; RESP 19; TEMP 97.4; O2SAT 97
[2024-01-20 00:31] VITALS: BP 129/72; PULSE 80; RESP 18; TEMP 97.4
[2024-01-20 01:31] VITALS: RESP 18
[2024-01-20 08:05] VITALS: BP 123/76; PULSE 80; RESP 20; TEMP 98
[2024-01-20 09:14] VITALS: BP 99/70; PULSE 106; RESP 17; TEMP 97.4; O2SAT 97
[2024-01-20 20:47] VITALS: BP 124/76; PULSE 84; RESP 17; TEMP 98.4; O2SAT 97
[2024-01-21 08:45] VITALS: BP 129/70; PULSE 79; RESP 18; TEMP 97.6; O2SAT 98
[2024-01-21] MEDS ORDERED: SIMV10TA97 PO (08:59)
== END 2024-01-21 12:22 | disposition home or self-care (01) | DRG 750 ==
LOC: EMS 19:40 → EDH 01-12 00:25 → UNDOADMIN 01-12 00:25 → 3EI 01-12 00:40
PROVIDERS: ADMIT Psychiatry & Neurology Psychiatry; ATTEND Psychiatry & Neurology Psychiatry
PROC: GZ52ZZZ Individual Psychotherapy, Cognitive (ICD-10-PCS; principal; 2024-01-12)
DX: F25.1 Schizoaffective disorder, depressive type (principal); R45.851 Suicidal ideations; K70.30 Alcoholic cirrhosis of liver without ascites; F12.10 Cannabis abuse, uncomplicated; E87.6 Hypokalemia; E78.5 Hyperlipidemia, unspecified; I10 Essential (primary) hypertension; E03.9 Hypothyroidism, unspecified; Z20.822 Contact with and (suspected) exposure to COVID-19; F32.9 Major depressive disorder, single episode, unspecified; D25.9 Leiomyoma of uterus, unspecified; D72.829 Elevated white blood cell count, unspecified; F17.210 Nicotine dependence, cigarettes, uncomplicated; F41.9 Anxiety disorder, unspecified; Z79.899 Other long term (current) drug therapy
CPT/HCPCS: 80053; 80061; 80307; 84436; 84439; 84443; 85025; 99285; G0480

== ENCOUNTER 2024-02-04 21:54 | Inpatient (IN) | payer MEDICAID ==
[~2024-02-04] VITALS: Ht 152.4 cm; Wt 69.4 kg
[~2024-02-04 21:54] MED LIST changes: -GABA-1181 PO; -SIMV-259 PO; +SIMV10TA97 PO
[2024-02-04 22:25] LABS: COVID AG,FIA SOURCE NASAL SWAB
[2024-02-04 22:35] LABS: BASOPHILS % (AUTO) 0.4 % (0.0-2.0); EOSINOPHILS % (AUTO) 3.2 % (1.0-6.0); HEMOGLOBIN 12.6 g/dL (12.0-16.0); LYMPHOCYTES # (AUTO) 1.8 K/uL (1.0-4.8); LYMPHOCYTES % (AUTO) 21.4 % (22.0-44.0); MEAN CORPUSCULAR HEMOGLOBIN 30.5 pg (26.0-34.0); MEAN CORPUSCULAR HGB CONC 33.2 G/dL (31.0-37.0); MEAN CORPUSCULAR VOLUME 92 fL (80-100); MONOCYTES # (AUTO) 0.6 K/uL (0.1-1.0); MONOCYTES % (AUTO) 6.6 % (2.0-9.0); NEUTROPHILS # (AUTO) 5.7 K/uL (1.8-7.7); NEUTROPHILS % (AUTO) 68.4 % (40.0-70.0); PLATELET COUNT (AUTO) 269 K/uL (150-450); RED BLOOD CELL COUNT(AUTO) 4.14 MIL/uL (4.00-5.20); RED CELL DISTRIBUTION WIDTH 14.9 % (11.5-14.5); WHITE BLOOD COUNT (AUTO) 8.4 K/uL (4.5-11.0)
[2024-02-04 22:45] LABS: SARS-COV2 (COVID) ANTIGEN,FIA Negative (Negative)
[2024-02-04 22:46] LABS: ANION GAP 7 mmol/L (8-16); CALCIUM, TOTAL 8.5 mg/dL (8.8-10.5); CARBON DIOXIDE 28 mmol/L (22-29); CHLORIDE 104 mmol/L (98-107); CREATININE 1.07 mg/dL (0.60-1.30); GLOMERULAR FILTR. RATE CALC 51 mL/min (>60); GLUCOSE,RANDOM 111 mg/dL (70-110); POTASSIUM 3.5 mmol/L (3.5-5.1); SODIUM SERUM 139 mmol/L (136-145); UREA NITROGEN, BLOOD 8 mg/dL (7-18)
[2024-02-04 22:48] LABS: ALCOHOL, BLOOD (SERUM) < 3 mg/dL (0-10)
[2024-02-04 23:05] LABS: ALCOHOL, URINE DRUG SCREEN NEGATIVE (NEGATIVE); AMPHET/METH SCREEN,URINE NEGATIVE (NEGATIVE); BARBITURATE SCREEN, URINE NEGATIVE (NEGATIVE); BENZODIAZEPINES SCREEN,URINE NEGATIVE (NEGATIVE); CANNABINOID SCREEN,URINE NEGATIVE (NEGATIVE); COCAINE SCREEN,URINE NEGATIVE (NEGATIVE); METHADONE SCREEN, URINE NEGATIVE (NEGATIVE); OPIATE SCREEN,URINE NEGATIVE (NEGATIVE); PHENCYCLIDINE SCREEN,URINE NEGATIVE (NEGATIVE)
[2024-02-04] MEDS: LORazepam 2 MG TABLET PO ONE (23:54)
[2024-02-05 00:10] VITALS: BP 110/77; PULSE 77; RESP 19; TEMP 98; O2SAT 93
[2024-02-05] MEDS ORDERED: CloNIDine HCL 0.1 MG TABLET PO PRN (06:45)
[2024-02-05] MEDS ORDERED: LOPERAMIDE HCL 2 MG CAPSULE PO PRN (06:45)
[2024-02-05] MEDS ORDERED: PETROLATUM,WHITE 28 GM JELLY TP PRN (06:45)
[2024-02-05] MEDS ORDERED: ONDANSETRON HCL 4 MG TABLET PO PRN (06:45)
[2024-02-05] MEDS ORDERED: MAGNESIUM HYDROXIDE SUSPENSION 30 ML UDCUP PO PRN (06:45)
[2024-02-05] MEDS ORDERED: DOCUSATE SODIUM 100 MG CAPSULE PO PRN (06:45)
[2024-02-05] MEDS ORDERED: GuaiFENesin/D-METHORPHAN [SUGAR-FREE] 200-20MG/10 ML SYRUP UDCUP PO PRN (06:45)
[2024-02-05] MEDS ORDERED: MAG HYDROX/ALUMINUM HYD/SIMETH ES 30 ML SUSPENSION UDCUP PO PRN (06:45)
[2024-02-05] MEDS ORDERED: ALBUTEROL SULFATE HFA 90 MCG/PUFF 8 GM INHALER IH PRN (06:45)
[2024-02-05 09:20] VITALS: BP 108/71; PULSE 88; RESP 20; O2SAT 97
[2024-02-05] MEDS: LORazepam 2 MG TABLET PO PRN (09:22)
[2024-02-05 13:54] VITALS: BP 108/62; PULSE 92; RESP 18
[2024-02-05] MEDS ORDERED: GABA-1181 PO (14:50)
[2024-02-05] MEDS ORDERED: MULT-1106 PO (14:50)
[2024-02-05] MEDS ORDERED: MIDO5TAB5 PO (14:50)
[2024-02-05] MEDS ORDERED: TOPI100T37 PO (14:50)
[2024-02-05] MEDS ORDERED: LEVO137T2 PO (14:50)
[2024-02-05] MEDS ORDERED: DIVA-153 PO (14:50)
[2024-02-05] MEDS ORDERED: ARIP882S2 IM (14:50)
[2024-02-05] MEDS: BusPIRone HCL 10 MG TABLET PO SCH (16:26)
[2024-02-05] MEDS: ChlorproMAZINE HCL 100 MG TABLET PO SCH (16:26)
[2024-02-05] MEDS ORDERED: SIMVASTATIN 10 MG TABLET PO SCH (21:00)
[2024-02-05] MEDS: TraZODone HCL 150 MG TABLET PO SCH (21:15)
[2024-02-05] MEDS: SIMVASTATIN 10 MG TABLET PO SCH (21:15)
[2024-02-05 22:38] VITALS: BP 107/77; PULSE 94; RESP 18; TEMP 97.1; O2SAT 97
[2024-02-05] MEDS: ZOLPIDEM TARTRATE 10 MG TABLET PO PRN (23:52)
[2024-02-05] MEDS: LORazepam 1 MG TABLET PO PRN (23:53)
[2024-02-06 07:30] LABS: ALANINE AMINOTRANSFERASE 16 U/L (12-78); ALKALINE PHOSPHATASE 132 U/L (46-116); ANION GAP 7 mmol/L (8-16); ASPARTATE AMINOTRANSFERASE 13 U/L (15-37); BILIRUBIN,TOTAL 0.3 mg/dL (0.1-1.0); CALCIUM, TOTAL 8.5 mg/dL (8.8-10.5); CARBON DIOXIDE 26 mmol/L (22-29); CHLORIDE 102 mmol/L (98-107); CREATININE 0.85 mg/dL (0.60-1.30); GLOMERULAR FILTR. RATE CALC > 60 mL/min (>60); GLUCOSE,RANDOM 98 mg/dL (70-110); POTASSIUM 3.7 mmol/L (3.5-5.1); SODIUM SERUM 135 mmol/L (136-145); THYROID STIMULATING HORMONE 12.46 uIU/mL (0.36-3.74); TOTAL PROTEIN, SERUM 6.6 g/dL (6.4-8.2); UREA NITROGEN, BLOOD 15 mg/dL (7-18)
[2024-02-06 07:42] LABS: HEMOGLOBIN A1C 5.4 % (3.8-5.6)
[2024-02-06] MEDS: HALOPERIDOL 5 MG TABLET PO PRN (07:55)
[2024-02-06 09:00] VITALS: BP 133/80; PULSE 86; RESP 17; TEMP 97.7; O2SAT 98
[2024-02-06 21:19] VITALS: BP 141/80; PULSE 90; RESP 18; TEMP 98.2; O2SAT 96
[2024-02-07 09:21] VITALS: BP 143/78; PULSE 102; RESP 17; TEMP 98.9; O2SAT 97
[2024-02-07 15:40] LABS: BASOPHILS % (AUTO) 0.1 % (0.0-2.0); EOSINOPHILS % (AUTO) 0.2 % (1.0-6.0); HEMOGLOBIN 13.1 g/dL (12.0-16.0); LYMPHOCYTES # (AUTO) 1.1 K/uL (1.0-4.8); LYMPHOCYTES % (AUTO) 12.2 % (22.0-44.0); MEAN CORPUSCULAR HEMOGLOBIN 29.6 pg (26.0-34.0); MEAN CORPUSCULAR HGB CONC 32.8 G/dL (31.0-37.0); MEAN CORPUSCULAR VOLUME 90 fL (80-100); MONOCYTES # (AUTO) 0.8 K/uL (0.1-1.0); MONOCYTES % (AUTO) 8.6 % (2.0-9.0); NEUTROPHILS # (AUTO) 7.4 K/uL (1.8-7.7); NEUTROPHILS % (AUTO) 78.9 % (40.0-70.0); PLATELET COUNT (AUTO) 232 K/uL (150-450); RED BLOOD CELL COUNT(AUTO) 4.44 MIL/uL (4.00-5.20); RED CELL DISTRIBUTION WIDTH 14.3 % (11.5-14.5); WHITE BLOOD COUNT (AUTO) 9.4 K/uL (4.5-11.0)
[2024-02-07 15:54] LABS: ANION GAP 11 mmol/L (8-16); CALCIUM, TOTAL 8.8 mg/dL (8.8-10.5); CARBON DIOXIDE 24 mmol/L (22-29); CHLORIDE 94 mmol/L (98-107); CREATININE 0.75 mg/dL (0.60-1.30); GLOMERULAR FILTR. RATE CALC > 60 mL/min (>60); GLUCOSE,RANDOM 107 mg/dL (70-110); POTASSIUM 3.8 mmol/L (3.5-5.1); SODIUM SERUM 129 mmol/L (136-145); UREA NITROGEN, BLOOD 8 mg/dL (7-18)
[2024-02-07] MEDS: SODIUM CHLORIDE 1 GM TABLET PO SCH (17:07)
[2024-02-07 23:15] VITALS: BP 112/65; PULSE 98; RESP 18; TEMP 97.6; O2SAT 98
[2024-02-07 23:37] VITALS: BP 109/68; PULSE 96; RESP 18; TEMP 97.5; O2SAT 98
[2024-02-08] VITALS: BP 115/75; PULSE 98; RESP 18; TEMP 97.8; O2SAT 98
[2024-02-08 00:30] VITALS: BP 110/68; PULSE 96; RESP 18; TEMP 97.9; O2SAT 97
[2024-02-08 01:30] VITALS: BP 112/63; PULSE 97; RESP 18; TEMP 98; O2SAT 97
[2024-02-08 02:30] VITALS: BP 115/74; PULSE 95; RESP 18; TEMP 97.9; O2SAT 98
[2024-02-08 09:32] VITALS: BP 89/47; PULSE 101; RESP 19; TEMP 97.1; O2SAT 98
[2024-02-08 22:20] VITALS: BP 106/58; PULSE 76; RESP 18; TEMP 98.2
[2024-02-09 07:09] LABS: ANION GAP 6 mmol/L (8-16); CALCIUM, TOTAL 8.6 mg/dL (8.8-10.5); CARBON DIOXIDE 27 mmol/L (22-29); CHLORIDE 101 mmol/L (98-107); GLOMERULAR FILTR. RATE CALC > 60 mL/min (>60); GLUCOSE,RANDOM 114 mg/dL (70-110); SODIUM SERUM 134 mmol/L (136-145); UREA NITROGEN, BLOOD 14 mg/dL (7-18)
[2024-02-09 07:21] LABS: ALCOHOL, URINE DRUG SCREEN NEGATIVE (NEGATIVE); AMPHET/METH SCREEN,URINE NEGATIVE (NEGATIVE); BARBITURATE SCREEN, URINE NEGATIVE (NEGATIVE); BENZODIAZEPINES SCREEN,URINE NEGATIVE (NEGATIVE); CANNABINOID SCREEN,URINE NEGATIVE (NEGATIVE); COCAINE SCREEN,URINE NEGATIVE (NEGATIVE); METHADONE SCREEN, URINE NEGATIVE (NEGATIVE); OPIATE SCREEN,URINE NEGATIVE (NEGATIVE); PHENCYCLIDINE SCREEN,URINE NEGATIVE (NEGATIVE)
[2024-02-09 07:28] LABS: APPEARANCE,URINE HAZY (CLEAR); COLOR,URINE YELLOW (YELLOW); GLUCOSE, URINE (UA) NEGATIVE (NEGATIVE); KETONES,URINE NEGATIVE (NEGATIVE); LEUKOCYTE ESTERASE ,URINE LARGE (NEGATIVE); NITRATE,URINE POSITIVE (NEGATIVE); OCCULT BLOOD,URINE SMALL (NEGATIVE); PROTEIN,URINE 30-70 mg/dL (NEGATIVE); SPECIFIC GRAVITIY, URINE 1.011 (1.003-1.030); UROBILINOGEN,URINE <=1.0 mg/dL (<=1.0)
[2024-02-09 07:52] LABS: BILIRUBIN,URINE SMALL (NEGATIVE)
[2024-02-09 08:42] LABS: BACTERIA,URINE Many /HPF (None Seen); SQUAMOUS EPITHELIAL CELL,UR Few /LPF (None Seen); WBC,URINE 51-100 /HPF (0-5)
[2024-02-09 09:09] VITALS: BP 97/53; PULSE 86; RESP 17; TEMP 97.8; O2SAT 98
[2024-02-09] MEDS: NICOTINE 14 MG/24 HOUR PATCH TD PRN (10:13)
[2024-02-09 20:59] VITALS: BP 98/70; PULSE 76; RESP 18; TEMP 97.4
[2024-02-10 09:02] VITALS: BP 102/57; PULSE 86; RESP 18; TEMP 97.8; O2SAT 98
[2024-02-10] MEDS: CEPHALEXIN MONOHYDRATE 500 MG CAPSULE PO SCH (12:31)
[2024-02-10] MEDS: IBUPROFEN 400 MG TABLET PO PRN (12:31)
[2024-02-10] MEDS: ACETAMINOPHEN 325 MG TABLET PO PRN (16:37)
[2024-02-10 20:37] VITALS: BP 120/80; PULSE 80; RESP 18; TEMP 98; O2SAT 98
[2024-02-11 09:32] VITALS: BP 154/86; PULSE 81; RESP 16; TEMP 97.7; O2SAT 96
[2024-02-11] MEDS: BusPIRone HCL 15 MG TABLET PO SCH (17:29)
[2024-02-11 22:15] VITALS: BP 115/79; PULSE 84; RESP 18; TEMP 97.9; O2SAT 98
[2024-02-11] MEDS: LORazepam 1 MG TABLET PO PRN (22:24)
[2024-02-12 09:00] VITALS: BP 106/71; PULSE 91; RESP 18; TEMP 97.4; O2SAT 98
[2024-02-12] MEDS ORDERED: SODI100067 PO (13:34)
[2024-02-12] MEDS ORDERED: BUSP15 PO (13:34)
== END 2024-02-12 13:30 | disposition home or self-care (01) | DRG 750 ==
LOC: EMS 21:54 → 3EI 02-05 00:47
PROVIDERS: ADMIT Psychiatry & Neurology Psychiatry; ATTEND Psychiatry & Neurology Psychiatry
PROC: GZHZZZZ Group Psychotherapy (ICD-10-PCS; principal; 2024-02-05)
DX: F25.1 Schizoaffective disorder, depressive type (principal); R45.851 Suicidal ideations; K70.30 Alcoholic cirrhosis of liver without ascites; E87.1 Hypo-osmolality and hyponatremia; D25.9 Leiomyoma of uterus, unspecified; E03.9 Hypothyroidism, unspecified; F41.9 Anxiety disorder, unspecified; E78.5 Hyperlipidemia, unspecified; F10.10 Alcohol abuse, uncomplicated; Z20.822 Contact with and (suspected) exposure to COVID-19; G47.00 Insomnia, unspecified; I10 Essential (primary) hypertension; N39.0 Urinary tract infection, site not specified; Z79.899 Other long term (current) drug therapy; Z88.5 Allergy status to narcotic agent
CPT/HCPCS: 80048; 80053; 80307; 81001; 82140; 83036; 84443; 85025; 87081; 87086; 87186; 99285; G0480

== ENCOUNTER 2024-03-27 12:50 | Inpatient (IN) | payer MEDICAID ==
[~2024-03-27] VITALS: Ht 154.9 cm; Wt 65.9 kg
[~2024-03-27 12:50] MED LIST changes: +AMOX1TAB15 PO; +BUSP15 PO; -BUSP5TAB20 PO; +SODI100067 PO
[2024-03-27] MEDS: LORazepam 1 MG TABLET PO ONE ×2 (15:05→20:52)
[2024-03-27 15:09] LABS: BASOPHILS % (AUTO) 0.4 % (0.0-2.0); EOSINOPHILS % (AUTO) 4.3 % (1.0-6.0); HEMATOCRIT 43.5 % (36-46); HEMOGLOBIN 14.1 g/dL (12.0-16.0); LYMPHOCYTES # (AUTO) 1.8 K/uL (1.0-4.8); LYMPHOCYTES % (AUTO) 20.4 % (22.0-44.0); MEAN CORPUSCULAR HEMOGLOBIN 29.2 pg (26.0-34.0); MEAN CORPUSCULAR HGB CONC 32.4 G/dL (31.0-37.0); MEAN CORPUSCULAR VOLUME 90 fL (80-100); MONOCYTES # (AUTO) 0.5 K/uL (0.1-1.0); MONOCYTES % (AUTO) 5.4 % (2.0-9.0); NEUTROPHILS # (AUTO) 6.2 K/uL (1.8-7.7); NEUTROPHILS % (AUTO) 69.5 % (40.0-70.0); PLATELET COUNT (AUTO) 214 K/uL (150-450); RED BLOOD CELL COUNT(AUTO) 4.83 MIL/uL (4.00-5.20); RED CELL DISTRIBUTION WIDTH 16.9 % (11.5-14.5); WHITE BLOOD COUNT (AUTO) 8.9 K/uL (4.5-11.0)
[2024-03-27 15:12] LABS: COVID AG,FIA SOURCE NASAL SWAB
[2024-03-27 15:24] LABS: ANION GAP 9 mmol/L (8-16); CALCIUM, TOTAL 8.3 mg/dL (8.8-10.5); CARBON DIOXIDE 26 mmol/L (22-29); CHLORIDE 104 mmol/L (98-107); CREATININE 0.89 mg/dL (0.60-1.30); GLOMERULAR FILTR. RATE CALC > 60 mL/min (>60); GLUCOSE,RANDOM 88 mg/dL (70-110); SODIUM SERUM 138 mmol/L (136-145); UREA NITROGEN, BLOOD 9 mg/dL (7-18)
[2024-03-27 15:28] LABS: ALCOHOL, BLOOD (SERUM) < 3 mg/dL (0-10)
[2024-03-27 15:31] LABS: POTASSIUM 2.9 mmol/L (3.5-5.1)
[2024-03-27 15:37] LABS: SARS-COV2 (COVID) ANTIGEN,FIA Negative (Negative)
[2024-03-27] MEDS: POTASSIUM CHLORIDE 20 MEQ ER TABLET PO ONE (15:38)
[2024-03-27] MEDS: ZOLPIDEM TARTRATE 10 MG TABLET PO PRN (23:22)
[2024-03-28 03:00] VITALS: BP 134/70; PULSE 80; RESP 16; TEMP 97.3; O2SAT 100
[2024-03-28] MEDS: LORazepam 2 MG TABLET PO PRN (03:06)
[2024-03-28] MEDS: PNEUMOCOCCAL VACCINE POLYVALENT 0.5 ML SYRINGE [PPSV23] IM. ONE (05:59)
[2024-03-28 08:42] VITALS: BP 129/74; PULSE 80; RESP 16; TEMP 97.4; O2SAT 99
[2024-03-28] MEDS ORDERED: BACITRACIN 28 GM OINTMENT TP PRN (09:15)
[2024-03-28] MEDS ORDERED: OMEPRAZOLE 20 MG CAPSULE PO PRN (09:15)
[2024-03-28] MEDS ORDERED: PETROLATUM,WHITE 28 GM JELLY TP PRN (09:15)
[2024-03-28] MEDS ORDERED: IBUPROFEN 600 MG TABLET PO PRN (09:15)
[2024-03-28] MEDS ORDERED: CloNIDine HCL 0.1 MG TABLET PO PRN (09:15)
[2024-03-28] MEDS ORDERED: ONDANSETRON 4 MG TABLET PO PRN (09:15)
[2024-03-28] MEDS ORDERED: BENZOCAINE/MENTHOL LOZENGE PO PRN (09:15)
[2024-03-28] MEDS ORDERED: MAGNESIUM HYDROXIDE SUSPENSION 30 ML UDCUP PO PRN (09:15)
[2024-03-28] MEDS ORDERED: ACETAMINOPHEN 325 MG TABLET PO PRN (09:15)
[2024-03-28] MEDS ORDERED: LOPERAMIDE HCL 2 MG CAPSULE PO PRN (09:15)
[2024-03-28] MEDS ORDERED: DOCUSATE SODIUM 100 MG CAPSULE PO PRN (09:15)
[2024-03-28] MEDS ORDERED: MAG HYDROX/ALUMINUM HYD/SIMETH ES 30 ML SUSPENSION UDCUP PO PRN (09:15)
[2024-03-28] MEDS: NICOTINE 21 MG/24 HOUR PATCH TD SCH (10:14)
[2024-03-28] MEDS: HALOPERIDOL 5 MG TABLET PO PRN (14:10)
[2024-03-28 15:00] VITALS: BP 116/62; RESP 16
[2024-03-28 16:28] VITALS: BP 149/79; RESP 17
[2024-03-28] MEDS: LORazepam 0.5 MG TABLET PO SCH (16:31)
[2024-03-28 20:39] VITALS: BP 148/79; PULSE 109; RESP 17; TEMP 97.4; O2SAT 98
[2024-03-28] MEDS: SIMVASTATIN 10 MG TABLET PO SCH (20:40)
[2024-03-28] MEDS: QUEtiapine FUMARATE 300 MG TABLET PO SCH (20:41)
[2024-03-29] MEDS: LEVOTHYROXINE SODIUM 137 MCG TABLET PO SCH (06:32)
[2024-03-29 08:30] VITALS: BP 117/77; PULSE 86; RESP 16; TEMP 97.2; O2SAT 99
[2024-03-29 22:41] VITALS: BP 107/62; PULSE 73; RESP 18; TEMP 97.6
[2024-03-30 08:57] LABS: ANION GAP 10 mmol/L (8-16); CALCIUM, TOTAL 8.8 mg/dL (8.8-10.5); CARBON DIOXIDE 26 mmol/L (22-29); CHLORIDE 103 mmol/L (98-107); CHOL/HDL RATIO 4.2 (3.9-5.7); CHOLESTEROL 212 mg/dL (131-200); CREATININE 0.61 mg/dL (0.60-1.30); GLOMERULAR FILTR. RATE CALC > 60 mL/min (>60); GLUCOSE,RANDOM 105 mg/dL (70-110); HDL CHOLESTEROL 50 mg/dL (40-60); LDL CHOL (CALC.) 105 mg/dL (0-130); POTASSIUM 3.9 mmol/L (3.5-5.1); SODIUM SERUM 139 mmol/L (136-145); THYROID STIMULATING HORMONE 21.17 uIU/mL (0.36-3.74); TRIGLYCERIDES 283 mg/dL (15-150); UREA NITROGEN, BLOOD 13 mg/dL (7-18)
[2024-03-30 15:41] VITALS: BP 106/60; PULSE 100; RESP 18; TEMP 98; O2SAT 99
[2024-03-30 15:59] VITALS: BP 114/80; PULSE 100; RESP 18; TEMP 98
[2024-03-30 20:11] VITALS: BP 118/81; PULSE 96; RESP 18; TEMP 97.5
[2024-03-30 21:55] VITALS: BP 110/75; PULSE 98; RESP 16; TEMP 97.8
[2024-03-31 08:59] VITALS: BP 109/67; PULSE 90; RESP 18; TEMP 98; O2SAT 100
[2024-03-31 20:55] VITALS: BP 128/67; PULSE 95; RESP 18; TEMP 97.5; O2SAT 96
[2024-04-01 09:10] VITALS: BP 108/68; PULSE 98; RESP 18; TEMP 97; O2SAT 100
[2024-04-01] MEDS: ALBUTEROL SULFATE HFA 90 MCG/PUFF 8 GM INHALER IH PRN (19:10)
[2024-04-01] MEDS: LORazepam 1 MG TABLET PO ONE (19:15)
[2024-04-01 21:00] VITALS: BP 123/80; PULSE 101; RESP 18; TEMP 97.2; O2SAT 96
[2024-04-02 08:50] VITALS: BP 104/63; PULSE 85; RESP 18; TEMP 98.2; O2SAT 95
[2024-04-02] MEDS ORDERED: QUET300T2 PO (10:49)
[2024-04-02] MEDS ORDERED: LEVO137T24 PO (10:55)
[2024-04-02] MEDS ORDERED: NICO-803 TD (10:57)
[2024-04-02] MEDS ORDERED: SIMV-259 PO (10:58)
== END 2024-04-02 13:08 | DRG 753 ==
LOC: EMS 12:51 → B2S 03-28 00:11
PROVIDERS: ADMIT Psychiatry & Neurology Psychiatry; ATTEND Psychiatry & Neurology Psychiatry
DX: F31.30 Bipolar disorder, current episode depressed, mild or moderate severity, unspecified (principal); R45.851 Suicidal ideations; E03.9 Hypothyroidism, unspecified; K59.00 Constipation, unspecified; Z20.822 Contact with and (suspected) exposure to COVID-19; G47.00 Insomnia, unspecified; F12.90 Cannabis use, unspecified, uncomplicated; I10 Essential (primary) hypertension; E78.5 Hyperlipidemia, unspecified; F10.90 Alcohol use, unspecified, uncomplicated; F41.9 Anxiety disorder, unspecified; Z87.891 Personal history of nicotine dependence
CPT/HCPCS: 80048; 80061; 84132; 84443; 85025; 99285; G0480; J3535

== ENCOUNTER 2024-04-10 13:05 | Inpatient (IN) | payer MEDICAID ==
[~2024-04-10] VITALS: Ht 152.4 cm; Wt 64.1 kg
[~2024-04-10 13:05] MED LIST changes: -AMOX1TAB15 PO; -BUSP15 PO; -CHLO100T42 PO; +LEVO137T24 PO; +NICO-803 TD; +QUET300T2 PO; +SIMV-259 PO; -SIMV10TA97 PO; -SODI100067 PO; -TRAZ-283 PO
[2024-04-10] MEDS ORDERED: MULT-1106 PO (13:58)
[2024-04-10] MEDS ORDERED: GABA-1404 PO (13:58)
[2024-04-10] MEDS ORDERED: TOPI100T37 PO (13:58)
[2024-04-10] MEDS ORDERED: FLUD.1 PO (13:58)
[2024-04-10] MEDS: LORazepam 1 MG TABLET PO ONE (14:06)
[2024-04-10 14:39] LABS: BASOPHILS % (AUTO) 1.1 % (0.0-2.0); EOSINOPHILS % (AUTO) 4.9 % (1.0-6.0); HEMATOCRIT 37.9 % (36-46); HEMOGLOBIN 12.2 g/dL (12.0-16.0); LYMPHOCYTES # (AUTO) 2.4 K/uL (1.0-4.8); LYMPHOCYTES % (AUTO) 32.9 % (22.0-44.0); MEAN CORPUSCULAR HEMOGLOBIN 29.4 pg (26.0-34.0); MEAN CORPUSCULAR HGB CONC 32.3 G/dL (31.0-37.0); MEAN CORPUSCULAR VOLUME 91 fL (80-100); MONOCYTES # (AUTO) 0.5 K/uL (0.1-1.0); MONOCYTES % (AUTO) 6.5 % (2.0-9.0); NEUTROPHILS # (AUTO) 3.9 K/uL (1.8-7.7); NEUTROPHILS % (AUTO) 54.6 % (40.0-70.0); PLATELET COUNT (AUTO) 271 K/uL (150-450); RED BLOOD CELL COUNT(AUTO) 4.16 MIL/uL (4.00-5.20); RED CELL DISTRIBUTION WIDTH 17.6 % (11.5-14.5); WHITE BLOOD COUNT (AUTO) 7.2 K/uL (4.5-11.0)
[2024-04-10 14:48] LABS: ANION GAP 12 mmol/L (8-16); CALCIUM, TOTAL 8.6 mg/dL (8.8-10.5); CARBON DIOXIDE 22 mmol/L (22-29); CHLORIDE 107 mmol/L (98-107); CREATININE 0.82 mg/dL (0.60-1.30); GLOMERULAR FILTR. RATE CALC > 60 mL/min (>60); GLUCOSE,RANDOM 104 mg/dL (70-110); POTASSIUM 3.6 mmol/L (3.5-5.1); SODIUM SERUM 141 mmol/L (136-145); UREA NITROGEN, BLOOD 10 mg/dL (7-18)
[2024-04-10 15:14] LABS: ALCOHOL, BLOOD (SERUM) < 3 mg/dL (0-10)
[2024-04-10] MEDS ORDERED: MAGNESIUM HYDROXIDE SUSPENSION 30 ML UDCUP PO PRN (16:30)
[2024-04-10] MEDS ORDERED: LOPERAMIDE HCL 2 MG CAPSULE PO PRN (16:30)
[2024-04-10] MEDS ORDERED: MAG HYDROX/ALUMINUM HYD/SIMETH ES 30 ML SUSPENSION UDCUP PO PRN (16:30)
[2024-04-10] MEDS ORDERED: ACETAMINOPHEN 325 MG TABLET PO PRN (16:30)
[2024-04-10 17:11] LABS: ALCOHOL, URINE DRUG SCREEN NEGATIVE (NEGATIVE); AMPHET/METH SCREEN,URINE NEGATIVE (NEGATIVE); BARBITURATE SCREEN, URINE NEGATIVE (NEGATIVE); BENZODIAZEPINES SCREEN,URINE POSITIVE (NEGATIVE); CANNABINOID SCREEN,URINE NEGATIVE (NEGATIVE); COCAINE SCREEN,URINE NEGATIVE (NEGATIVE); METHADONE SCREEN, URINE NEGATIVE (NEGATIVE); OPIATE SCREEN,URINE NEGATIVE (NEGATIVE); PHENCYCLIDINE SCREEN,URINE NEGATIVE (NEGATIVE)
[2024-04-10 19:22] LABS: COVID AG,FIA SOURCE NASAL SWAB
[2024-04-10 19:39] LABS: SARS-COV2 (COVID) ANTIGEN,FIA Negative (Negative)
[2024-04-11] MEDS: HALOPERIDOL 5 MG TABLET PO PRN (01:05)
[2024-04-11] MEDS: LORazepam 2 MG TABLET PO PRN (01:05)
[2024-04-11 01:20] VITALS: O2SAT 98
[2024-04-11] MEDS ORDERED: CloNIDine HCL 0.1 MG TABLET PO PRN (10:00)
[2024-04-11] MEDS ORDERED: LOPERAMIDE HCL 2 MG CAPSULE PO PRN (10:00)
[2024-04-11] MEDS ORDERED: NICOTINE 14 MG/24 HOUR PATCH TD PRN (10:00)
[2024-04-11] MEDS ORDERED: PETROLATUM,WHITE 28 GM JELLY TP PRN (10:00)
[2024-04-11] MEDS ORDERED: IBUPROFEN 400 MG TABLET PO PRN (10:00)
[2024-04-11] MEDS ORDERED: DOCUSATE SODIUM 100 MG CAPSULE PO PRN (10:00)
[2024-04-11] MEDS ORDERED: ONDANSETRON 4 MG TABLET PO PRN (10:00)
[2024-04-11] MEDS ORDERED: MAGNESIUM HYDROXIDE SUSPENSION 30 ML UDCUP PO PRN (10:00)
[2024-04-11] MEDS ORDERED: ACETAMINOPHEN 325 MG TABLET PO PRN (10:00)
[2024-04-11] MEDS ORDERED: MAG HYDROX/ALUMINUM HYD/SIMETH ES 30 ML SUSPENSION UDCUP PO PRN (10:00)
[2024-04-11] MEDS: FLUDROCORTISONE ACETATE 0.1 MG TABLET PO SCH (16:57)
[2024-04-11] MEDS: NICOTINE 21 MG/24 HOUR PATCH TD SCH (16:57)
[2024-04-11 20:36] VITALS: BP 112/74; PULSE 91; RESP 18; TEMP 97.4; O2SAT 95
[2024-04-11] MEDS: SIMVASTATIN 10 MG TABLET PO SCH (21:29)
[2024-04-11] MEDS: QUEtiapine FUMARATE 300 MG TABLET PO SCH (21:29)
[2024-04-11] MEDS: GuaiFENesin/D-METHORPHAN [SUGAR-FREE] 200-20MG/10 ML SYRUP UDCUP PO PRN (21:32)
[2024-04-12] MEDS: LEVOTHYROXINE SODIUM 137 MCG TABLET PO SCH (06:34)
[2024-04-12 09:14] LABS: THYROID STIMULATING HORMONE 2.61 uIU/mL (0.36-3.74)
[2024-04-12 09:22] VITALS: BP 113/77; PULSE 80; RESP 17; TEMP 97.7; O2SAT 98
[2024-04-12] MEDS: TOPIRAMATE 100 MG TABLET PO SCH (09:32)
[2024-04-12 09:39] LABS: HEMOGLOBIN A1C 5.1 % (3.8-5.6)
[2024-04-12 12:51] VITALS: BP 113/83; PULSE 93; RESP 18
[2024-04-12] MEDS: LORazepam 2 MG TABLET PO PRN (12:51)
[2024-04-12 15:45] LABS: CHOL/HDL RATIO 4.1 (3.9-5.7)
[2024-04-12 20:33] VITALS: BP 109/78; PULSE 94; RESP 18; TEMP 97.8
[2024-04-13 09:14] VITALS: BP 114/74; PULSE 83; RESP 18; TEMP 97.8; O2SAT 97
[2024-04-13 20:36] VITALS: BP 105/70; PULSE 103; RESP 16; TEMP 98.5; O2SAT 98
[2024-04-13] MEDS: ZOLPIDEM TARTRATE 10 MG TABLET PO PRN (22:29)
[2024-04-14 09:15] VITALS: BP 107/64; PULSE 93; RESP 16; TEMP 97; O2SAT 97
[2024-04-14 12:37] VITALS: BP 128/81; PULSE 100; RESP 16; TEMP 98; O2SAT 99
[2024-04-14] MEDS: LORazepam 1 MG TABLET PO PRN (12:39)
[2024-04-14 22:56] VITALS: BP 117/70; PULSE 88; RESP 18; TEMP 97.8; O2SAT 97
[2024-04-15 08:32] VITALS: BP 119/76; PULSE 89; RESP 18; TEMP 97.9; O2SAT 97
[2024-04-15] MEDS: ALBUTEROL SULFATE HFA 90 MCG/PUFF 8 GM INHALER IH PRN (17:39)
[2024-04-15 22:01] VITALS: BP 138/65; PULSE 92; RESP 16; TEMP 97.8; O2SAT 97
[2024-04-16 08:50] VITALS: BP 112/63; PULSE 81; RESP 16; TEMP 96.6; O2SAT 96
[2024-04-16] MEDS ORDERED: QUET300T19 PO (13:24)
[2024-04-16] MEDS ORDERED: TOPI100T37 PO (13:24)
[2024-04-16] MEDS ORDERED: TRAZ150T79 PO (13:53)
== END 2024-04-16 14:29 | disposition home or self-care (01) | DRG 750 ==
LOC: EMS 13:06 → B2S 04-11 00:02
PROVIDERS: ADMIT Psychiatry & Neurology Psychiatry; ATTEND Psychiatry & Neurology Psychiatry
PROC: GZHZZZZ Group Psychotherapy (ICD-10-PCS; principal; 2024-04-11)
PROC: GZ51ZZZ Individual Psychotherapy, Behavioral (ICD-10-PCS; 2024-04-11)
DX: F25.1 Schizoaffective disorder, depressive type (principal); R45.851 Suicidal ideations; K70.30 Alcoholic cirrhosis of liver without ascites; F31.9 Bipolar disorder, unspecified; I10 Essential (primary) hypertension; E03.9 Hypothyroidism, unspecified; Z20.822 Contact with and (suspected) exposure to COVID-19; J30.9 Allergic rhinitis, unspecified; E78.5 Hyperlipidemia, unspecified; D25.9 Leiomyoma of uterus, unspecified; E87.6 Hypokalemia; D72.829 Elevated white blood cell count, unspecified; D64.9 Anemia, unspecified; F41.9 Anxiety disorder, unspecified; Z79.899 Other long term (current) drug therapy; Z87.891 Personal history of nicotine dependence; Z88.5 Allergy status to narcotic agent
CPT/HCPCS: 80048; 80061; 80307; 83036; 84443; 85025; 87081; 99285; G0480; J3535

== ENCOUNTER 2024-04-16 17:41 | Emergency (ER) | payer MEDICAID ==
[~2024-04-16] VITALS: Ht 165.1 cm; Wt 79.5 kg
[~2024-04-16 17:41] MED LIST changes: +FLUD.1 PO; +GABA-1404 PO; +MULT-1106 PO; +QUET300T19 PO; +TOPI100T37 PO; +TRAZ150T79 PO
[2024-04-16 18:18] LABS: BASOPHILS % (AUTO) 0.6 % (0.0-2.0); EOSINOPHILS % (AUTO) 3.6 % (1.0-6.0); HEMATOCRIT 39.7 % (36-46); LYMPHOCYTES # (AUTO) 2.2 K/uL (1.0-4.8); LYMPHOCYTES % (AUTO) 21.9 % (22.0-44.0); MEAN CORPUSCULAR HEMOGLOBIN 29.6 pg (26.0-34.0); MEAN CORPUSCULAR HGB CONC 32.8 G/dL (31.0-37.0); MEAN CORPUSCULAR VOLUME 90 fL (80-100); MONOCYTES # (AUTO) 0.8 K/uL (0.1-1.0); MONOCYTES % (AUTO) 7.4 % (2.0-9.0); NEUTROPHILS # (AUTO) 6.8 K/uL (1.8-7.7); NEUTROPHILS % (AUTO) 66.5 % (40.0-70.0); PLATELET COUNT (AUTO) 249 K/uL (150-450); RED CELL DISTRIBUTION WIDTH 17.9 % (11.5-14.5); WHITE BLOOD COUNT (AUTO) 10.2 K/uL (4.5-11.0)
[2024-04-16 18:25] LABS: ANION GAP 12 mmol/L (8-16); CALCIUM, TOTAL 9.3 mg/dL (8.8-10.5); CARBON DIOXIDE 21 mmol/L (22-29); CHLORIDE 106 mmol/L (98-107); CREATININE 0.76 mg/dL (0.60-1.30); GLOMERULAR FILTR. RATE CALC > 60 mL/min (>60); GLUCOSE,RANDOM 119 mg/dL (70-110); POTASSIUM 3.3 mmol/L (3.5-5.1); SODIUM SERUM 139 mmol/L (136-145); UREA NITROGEN, BLOOD 20 mg/dL (7-18)
[2024-04-16 18:50] LABS: ALCOHOL, BLOOD (SERUM) < 3 mg/dL (0-10)
[2024-04-16 18:59] VITALS: TEMP 98.5
[2024-04-16] MEDS: LORazepam 1 MG TABLET PO ONE (21:43)
[2024-04-16 21:44] LABS: COVID AG,FIA SOURCE NASAL SWAB
[2024-04-16 22:02] LABS: SARS-COV2 (COVID) ANTIGEN,FIA Negative (Negative)
[2024-04-17 00:32] VITALS: BP 91/61; PULSE 100; RESP 20; O2SAT 98
[2024-04-17] MEDS: QUEtiapine FUMARATE 100 MG TABLET PO ONE (01:18)
[2024-04-17] MEDS: TraZODone HCL 50 MG TABLET PO ONE (01:18)
[2024-04-17] MEDS: LORazepam 2 MG TABLET PO ONE (02:22)
== END 2024-04-17 03:16 | disposition home or self-care (01) ==
LOC: EMS 17:42
DX: F25.1 Schizoaffective disorder, depressive type (principal); F41.1 Generalized anxiety disorder; F31.9 Bipolar disorder, unspecified; I10 Essential (primary) hypertension; E03.9 Hypothyroidism, unspecified; F17.210 Nicotine dependence, cigarettes, uncomplicated; Z88.5 Allergy status to narcotic agent; Z20.822 Contact with and (suspected) exposure to COVID-19
CPT/HCPCS: 99284; 87426; 80048; 85025; 36415; G0480

== ENCOUNTER 2024-04-30 12:10 | Emergency (ER) | payer MEDICAID ==
[~2024-04-30] VITALS: Ht 152.4 cm; Wt 65.0 kg
[~2024-04-30 12:10] MED LIST changes: -GABA-1404 PO; -MULT-1106 PO; -NICO-803 TD; -QUET300T2 PO
[2024-04-30 12:23] VITALS: BP 128/87; PULSE 84; RESP 18; TEMP 97.9; O2SAT 98
[2024-04-30] MEDS: ALPRAZolam 0.25 MG TABLET PO ONE (13:54)
[2024-04-30] MEDS: BACITRACIN 0.9 GM PACKET OINTMENT TP ONE (13:54)
== END 2024-04-30 16:00 | disposition home or self-care (01) ==
LOC: EMS 12:11
DX: S61.502A Unspecified open wound of left wrist, initial encounter (principal); S61.501A Unspecified open wound of right wrist, initial encounter; S60.211A Contusion of right wrist, initial encounter; S00.83XA Contusion of other part of head, initial encounter; S00.33XA Contusion of nose, initial encounter; I10 Essential (primary) hypertension; R26.89 Other abnormalities of gait and mobility; E03.9 Hypothyroidism, unspecified; F31.9 Bipolar disorder, unspecified; F17.210 Nicotine dependence, cigarettes, uncomplicated; Z88.5 Allergy status to narcotic agent; Z79.899 Other long term (current) drug therapy; W19.XXXA Unspecified fall, initial encounter; Y93.89 Activity, other specified; Y92.89 Other specified places as the place of occurrence of the external cause; Y99.8 Other external cause status
CPT/HCPCS: 99283

== ENCOUNTER 2024-05-01 18:16 | Emergency (ER) | payer MEDICAID ==
[~2024-05-01] VITALS: Ht 152.4 cm; Wt 65.0 kg
[2024-05-02 02:22] LABS: EOSINOPHILS % (AUTO) 3.7 % (1.0-6.0); HEMATOCRIT 41.9 % (36-46); HEMOGLOBIN 13.8 g/dL (12.0-16.0); LYMPHOCYTES # (AUTO) 1.6 K/uL (1.0-4.8); LYMPHOCYTES % (AUTO) 17.4 % (22.0-44.0); MEAN CORPUSCULAR HEMOGLOBIN 30.3 pg (26.0-34.0); MEAN CORPUSCULAR VOLUME 92 fL (80-100); MONOCYTES # (AUTO) 0.6 K/uL (0.1-1.0); MONOCYTES % (AUTO) 5.9 % (2.0-9.0); NEUTROPHILS # (AUTO) 6.8 K/uL (1.8-7.7); PLATELET COUNT (AUTO) 244 K/uL (150-450); RED BLOOD CELL COUNT(AUTO) 4.55 MIL/uL (4.00-5.20); RED CELL DISTRIBUTION WIDTH 17.7 % (11.5-14.5); WHITE BLOOD COUNT (AUTO) 9.5 K/uL (4.5-11.0)
[2024-05-02 03:03] LABS: ANION GAP 8 mmol/L (8-16); CALCIUM, TOTAL 9.1 mg/dL (8.8-10.5); CARBON DIOXIDE 26 mmol/L (22-29); CHLORIDE 103 mmol/L (98-107); CREATININE 0.93 mg/dL (0.60-1.30); GLOMERULAR FILTR. RATE CALC 60 mL/min (>60); GLUCOSE,RANDOM 132 mg/dL (70-110); POTASSIUM 3.6 mmol/L (3.5-5.1); SODIUM SERUM 137 mmol/L (136-145); UREA NITROGEN, BLOOD 10 mg/dL (7-18)
[2024-05-02 03:13] LABS: ALCOHOL, BLOOD (SERUM) < 3 mg/dL (0-10)
[2024-05-02 03:14] LABS: TROPONIN I-HIGH SENSITIVITY 6 ng/L (<51)
[2024-05-02] MEDS: ACETAMINOPHEN 325 MG TABLET PO ONE (04:16)
[2024-05-02] MEDS: LORazepam 1 MG TABLET PO ONE (04:16)
[2024-05-02 05:09] VITALS: BP 139/75; PULSE 78; RESP 20; TEMP 97.3; O2SAT 97
== END 2024-05-02 05:16 | disposition home or self-care (01) ==
LOC: EMS 18:16
DX: S00.93XA Contusion of unspecified part of head, initial encounter (principal); F41.9 Anxiety disorder, unspecified; F31.9 Bipolar disorder, unspecified; I10 Essential (primary) hypertension; E03.9 Hypothyroidism, unspecified; F17.210 Nicotine dependence, cigarettes, uncomplicated; Z88.5 Allergy status to narcotic agent; X58.XXXA Exposure to other specified factors, initial encounter; Y93.89 Activity, other specified; Y92.89 Other specified places as the place of occurrence of the external cause; Y99.8 Other external cause status
CPT/HCPCS: 99284; 80048; 84484; 85025; 36415; 70450; 72125; 93005; G0480

== ENCOUNTER 2024-11-11 23:34 | Inpatient (IN) | payer MEDICARE, MEDICAID ==
[~2024-11-11] VITALS: Ht 152.4 cm; Wt 63.8 kg
[~2024-11-11 23:34] MED LIST changes: +BUSP5TAB20 PO; +FLUO-418 PO; +LORA10TA60 PO; -SIMV-259 PO; +SIMV10TA97 PO; +TOPI-258 PO; -TOPI100T37 PO; +TRAZ-283 PO; -TRAZ150T79 PO
[2024-11-12 00:28] LABS: BASOPHILS % (AUTO) 0.8 % (0.0-2.0); EOSINOPHILS % (AUTO) 3.1 % (1.0-6.0); HEMOGLOBIN 11.8 g/dL (12.0-16.0); LYMPHOCYTES # (AUTO) 2.3 K/uL (1.0-4.8); LYMPHOCYTES % (AUTO) 16.5 % (22.0-44.0); MEAN CORPUSCULAR HEMOGLOBIN 29.3 pg (26.0-34.0); MEAN CORPUSCULAR HGB CONC 32.9 G/dL (31.0-37.0); MEAN CORPUSCULAR VOLUME 89 fL (80-100); MONOCYTES # (AUTO) 0.9 K/uL (0.1-1.0); MONOCYTES % (AUTO) 6.7 % (2.0-9.0); NEUTROPHILS # (AUTO) 10.1 K/uL (1.8-7.7); NEUTROPHILS % (AUTO) 72.9 % (40.0-70.0); PLATELET COUNT (AUTO) 348 K/uL (150-450); RED BLOOD CELL COUNT(AUTO) 4.03 MIL/uL (4.00-5.20); RED CELL DISTRIBUTION WIDTH 19.3 % (11.5-14.5); WHITE BLOOD COUNT (AUTO) 13.8 K/uL (4.5-11.0)
[2024-11-12 00:35] LABS: ANION GAP 8 mmol/L (8-16); CALCIUM, TOTAL 8.3 mg/dL (8.8-10.5); CARBON DIOXIDE 25 mmol/L (22-29); CHLORIDE 101 mmol/L (98-107); CREATININE 0.74 mg/dL (0.60-1.30); GLOMERULAR FILTR. RATE CALC > 60 mL/min (>60); GLUCOSE,RANDOM 104 mg/dL (70-110); POTASSIUM 3.5 mmol/L (3.5-5.1); SODIUM SERUM 134 mmol/L (136-145); UREA NITROGEN, BLOOD 8 mg/dL (7-18)
[2024-11-12 01:50] LABS: COVID AG,FIA SOURCE NASAL SWAB
[2024-11-12 02:00] LABS: INFLUENZA TYPE A NEGATIVE FOR TYPE A (NEGATIVE); INFLUENZA TYPE B NEGATIVE FOR TYPE B (NEGATIVE); SARS-COV2 (COVID) ANTIGEN,FIA Negative (Negative)
[2024-11-12 02:29] LABS: APPEARANCE,URINE CLEAR (CLEAR); BILIRUBIN,URINE NEGATIVE (NEGATIVE); COLOR,URINE COLORLESS (YELLOW); GLUCOSE, URINE (UA) NEGATIVE (NEGATIVE); KETONES,URINE NEGATIVE (NEGATIVE); LEUKOCYTE ESTERASE ,URINE NEGATIVE (NEGATIVE); NITRATE,URINE NEGATIVE (NEGATIVE); OCCULT BLOOD,URINE TRACE (NEGATIVE); PH,URINE 6.5 (5.0-8.0); PH,URINE DRUG SCREEN 6.5 (5.0-8.0); PROTEIN,URINE NEGATIVE (NEGATIVE); SPECIFIC GRAVITIY, URINE 1.004 (1.003-1.030); UROBILINOGEN,URINE <=1.0 mg/dL (<=1.0)
[2024-11-12 02:35] LABS: AMPHET/METH SCREEN,URINE NEGATIVE (NEGATIVE); BARBITURATE SCREEN, URINE NEGATIVE (NEGATIVE); BENZODIAZEPINES SCREEN,URINE NEGATIVE (NEGATIVE); CANNABINOID SCREEN,URINE NEGATIVE (NEGATIVE); COCAINE SCREEN,URINE NEGATIVE (NEGATIVE); METHADONE SCREEN, URINE NEGATIVE (NEGATIVE); OPIATE SCREEN,URINE NEGATIVE (NEGATIVE); PHENCYCLIDINE SCREEN,URINE NEGATIVE (NEGATIVE)
[2024-11-12 02:43] LABS: ALCOHOL, URINE DRUG SCREEN NEGATIVE (NEGATIVE); BACTERIA,URINE None Seen /HPF (None Seen); RBC,URINE 0-2 /HPF (0-2); SQUAMOUS EPITHELIAL CELL,UR Few /LPF (None Seen); WBC,URINE None Seen /HPF (0-5)
[2024-11-12 03:48] VITALS: O2SAT 96
[2024-11-12] MEDS: GuaiFENesin/D-METHORPHAN [SUGAR-FREE] 200-20MG/10 ML SYRUP UDCUP PO ONE (04:00)
[2024-11-12 05:54] VITALS: BP 108/69; PULSE 84; RESP 18; TEMP 97.9; O2SAT 94
[2024-11-12] MEDS: haloperidoL 5 MG TABLET PO PRN (06:00)
[2024-11-12] MEDS: LORazepam 2 MG TABLET PO PRN (06:00)
[2024-11-12 08:26] VITALS: BP 138/70; PULSE 90; RESP 17; TEMP 98.1; O2SAT 95
[2024-11-12] MEDS: TOPIRAMATE 100 MG TABLET PO SCH (09:50)
[2024-11-12] MEDS: FLUoxetine HCL 20 MG CAPSULE PO SCH (09:50)
[2024-11-12] MEDS: NICOTINE 14 MG/24 HOUR PATCH TD SCH (09:50)
[2024-11-12] MEDS: BusPIRone HCL 5 MG TABLET PO SCH (09:50)
[2024-11-12] MEDS ORDERED: PETROLATUM,WHITE 28 GM JELLY TP PRN (10:15)
[2024-11-12] MEDS ORDERED: ACETAMINOPHEN 325 MG TABLET PO PRN (10:15)
[2024-11-12] MEDS ORDERED: IBUPROFEN 400 MG TABLET PO PRN (10:15)
[2024-11-12] MEDS ORDERED: NICOTINE 14 MG/24 HOUR PATCH TD PRN (10:15)
[2024-11-12] MEDS ORDERED: MAGNESIUM HYDROXIDE SUSPENSION 30 ML UDCUP PO PRN (10:15)
[2024-11-12] MEDS ORDERED: MAG HYDROX/ALUMINUM HYD/SIMETH ES 30 ML SUSPENSION UDCUP PO PRN (10:15)
[2024-11-12] MEDS ORDERED: ONDANSETRON 4 MG TABLET PO PRN (10:15)
[2024-11-12] MEDS ORDERED: LOPERAMIDE HCL 2 MG CAPSULE PO PRN (10:15)
[2024-11-12] MEDS ORDERED: CloNIDine HCL 0.1 MG TABLET PO PRN (10:15)
[2024-11-12] MEDS ORDERED: DOCUSATE SODIUM 100 MG CAPSULE PO PRN (10:15)
[2024-11-12] MEDS: ALBUTEROL SULFATE HFA 90 MCG/PUFF 8 GM INHALER IH PRN (11:01)
[2024-11-12] MEDS: GuaiFENesin/D-METHORPHAN [SUGAR-FREE] 200-20MG/10 ML SYRUP UDCUP PO PRN (17:47)
[2024-11-12] MEDS: SIMVASTATIN 10 MG TABLET PO SCH (21:00)
[2024-11-12] MEDS: QUEtiapine FUMARATE 300 MG TABLET PO SCH (21:01)
[2024-11-12] MEDS: TraZODone HCL 150 MG TABLET PO SCH (21:01)
[2024-11-13] MEDS: LEVOTHYROXINE SODIUM 137 MCG TABLET PO SCH (07:02)
[2024-11-13 08:57] VITALS: BP 126/78; PULSE 83; RESP 18; TEMP 98.6; O2SAT 98
[2024-11-13] MEDS: LORATADINE 10 MG TABLET PO SCH (09:00)
[2024-11-13] MEDS: FLUDROCORTISONE ACETATE 0.1 MG TABLET PO SCH (09:00)
[2024-11-13 09:17] VITALS: O2SAT 96
[2024-11-13 09:52] LABS: BASOPHILS % (AUTO) 0.5 % (0.0-2.0); EOSINOPHILS % (AUTO) 4.4 % (1.0-6.0); HEMATOCRIT 40.4 % (36-46); HEMOGLOBIN 13.1 g/dL (12.0-16.0); LYMPHOCYTES # (AUTO) 1.6 K/uL (1.0-4.8); LYMPHOCYTES % (AUTO) 17.6 % (22.0-44.0); MEAN CORPUSCULAR HEMOGLOBIN 28.9 pg (26.0-34.0); MEAN CORPUSCULAR HGB CONC 32.3 G/dL (31.0-37.0); MEAN CORPUSCULAR VOLUME 89 fL (80-100); MONOCYTES # (AUTO) 0.7 K/uL (0.1-1.0); MONOCYTES % (AUTO) 7.1 % (2.0-9.0); NEUTROPHILS # (AUTO) 6.5 K/uL (1.8-7.7); NEUTROPHILS % (AUTO) 70.4 % (40.0-70.0); PLATELET COUNT (AUTO) 379 K/uL (150-450); RED BLOOD CELL COUNT(AUTO) 4.53 MIL/uL (4.00-5.20); RED CELL DISTRIBUTION WIDTH 19.3 % (11.5-14.5); WHITE BLOOD COUNT (AUTO) 9.2 K/uL (4.5-11.0)
[2024-11-13 10:09] LABS: ALANINE AMINOTRANSFERASE 24 U/L (12-78); ALBUMIN 2.9 g/dL (3.4-5.0); ALKALINE PHOSPHATASE 150 U/L (46-116); ANION GAP 10 mmol/L (8-16); ASPARTATE AMINOTRANSFERASE 21 U/L (15-37); BILIRUBIN,TOTAL 0.3 mg/dL (0.1-1.0); CALCIUM, TOTAL 8.9 mg/dL (8.8-10.5); CARBON DIOXIDE 25 mmol/L (22-29); CHLORIDE 101 mmol/L (98-107); CHOL/HDL RATIO 3.1 (3.9-5.7); CHOLESTEROL 194 mg/dL (131-200); CREATININE 0.57 mg/dL (0.60-1.30); GLOMERULAR FILTR. RATE CALC > 60 mL/min (>60); GLUCOSE,RANDOM 84 mg/dL (70-110); HDL CHOLESTEROL 62 mg/dL (40-60); LDL CHOL (CALC.) 105 mg/dL (0-130); POTASSIUM 3.7 mmol/L (3.5-5.1); SODIUM SERUM 136 mmol/L (136-145); THYROID STIMULATING HORMONE 1.58 uIU/mL (0.36-3.74); TOTAL PROTEIN, SERUM 6.9 g/dL (6.4-8.2); TRIGLYCERIDES 136 mg/dL (15-150); UREA NITROGEN, BLOOD 7 mg/dL (7-18)
[2024-11-13 21:01] VITALS: BP 139/70; PULSE 80; RESP 16; TEMP 98.4; O2SAT 95
[2024-11-14 09:58] VITALS: BP 101/60; PULSE 78; RESP 18; TEMP 98.8; O2SAT 95
[2024-11-14 20:46] VITALS: BP 130/86; PULSE 83; RESP 18; TEMP 98; O2SAT 96
[2024-11-15] MEDS: AZITHROMYCIN 250 MG TABLET PO SCH (08:38)
[2024-11-15 20:23] VITALS: BP 129/75; PULSE 79; RESP 16; TEMP 99.2; O2SAT 95
[2024-11-16 05:07] LABS: HEPATITIS C AB (EIA) Non Reactive (Non Reactive)
[2024-11-16 08:20] VITALS: BP 101/61; PULSE 76; RESP 19; TEMP 98; O2SAT 97
[2024-11-16 20:28] VITALS: BP 116/72; PULSE 82; RESP 18; TEMP 98; O2SAT 97
[2024-11-17 08:27] VITALS: BP 108/60; PULSE 84; RESP 19; TEMP 97.9; O2SAT 95
[2024-11-17 20:16] VITALS: BP 115/60; PULSE 78; RESP 19; TEMP 97.8; O2SAT 95
[2024-11-18 08:25] VITALS: BP 103/59; PULSE 81; RESP 19; TEMP 97.6; O2SAT 95
[2024-11-18 21:12] VITALS: BP 114/63; PULSE 76; RESP 16; TEMP 96.5; O2SAT 97
[2024-11-19 08:38] VITALS: BP 98/60; PULSE 74; RESP 18; TEMP 97.7; O2SAT 98
[2024-11-19 20:23] VITALS: BP 115/84; PULSE 70; RESP 16; TEMP 97.9; O2SAT 100
[2024-11-20 08:15] VITALS: BP 123/85; PULSE 69; RESP 18; TEMP 97.9; O2SAT 96
[2024-11-20 20:48] VITALS: RESP 18
[2024-11-20] MEDS: ZOLPIDEM TARTRATE 10 MG TABLET PO PRN (23:05)
[2024-11-21 13:41] VITALS: BP 98/78; PULSE 86; RESP 18; TEMP 97.9; O2SAT 96
[2024-11-21 20:00] VITALS: BP 116/79; PULSE 79; RESP 18; TEMP 97.3; O2SAT 96
[2024-11-22 08:30] VITALS: BP 115/71; PULSE 88; RESP 18; TEMP 98.1; O2SAT 100
[2024-11-22] MEDS ORDERED: TOPI100 PO (10:16)
== END 2024-11-22 13:03 | disposition home or self-care (01) | DRG 885 ==
LOC: EMS 23:35 → B2X 11-12 04:08
PROVIDERS: ADMIT Psychiatry & Neurology Psychiatry; ATTEND Psychiatry & Neurology Psychiatry
PROC: GZHZZZZ Group Psychotherapy (ICD-10-PCS; principal; 2024-11-12)
PROC: GZ52ZZZ Individual Psychotherapy, Cognitive (ICD-10-PCS; 2024-11-13)
DX: F25.0 Schizoaffective disorder, bipolar type (principal); R45.851 Suicidal ideations; E03.9 Hypothyroidism, unspecified; G47.00 Insomnia, unspecified; Z20.822 Contact with and (suspected) exposure to COVID-19; I10 Essential (primary) hypertension; F41.0 Panic disorder [episodic paroxysmal anxiety]; E78.5 Hyperlipidemia, unspecified; F17.210 Nicotine dependence, cigarettes, uncomplicated; J30.9 Allergic rhinitis, unspecified; K74.60 Unspecified cirrhosis of liver; Z79.899 Other long term (current) drug therapy; Z88.5 Allergy status to narcotic agent; Z91.51 Personal history of suicidal behavior
CPT/HCPCS: 71045; 80048; 80053; 80061; 80307; 81001; 83036; 84436; 84443; 85025; 86803; 87340; 87804; 99285; G0480; J3535; 36415-L1; 36415-TC

== ENCOUNTER 2025-03-06 23:53 | Inpatient (IN) | payer MEDICARE, MEDICAID ==
[~2025-03-06] VITALS: Ht 152.4 cm; Wt 67.6 kg
[~2025-03-06 23:53] MED LIST changes: -LORA10TA60 PO; -QUET300T19 PO; +QUET300T2 PO; +SIMV-259 PO; -SIMV10TA97 PO; -TOPI-258 PO; -TRAZ-283 PO; +TRAZ150T80 PO
[2025-03-07 02:20] LABS: COVID AG,FIA SOURCE NASAL SWAB
[2025-03-07 02:54] LABS: SARS-COV2 (COVID) ANTIGEN,FIA Negative (Negative)
[2025-03-07 03:14] LABS: PLATELET COUNT (AUTO) 220 K/uL (150-450); RED BLOOD CELL COUNT(AUTO) 4.82 MIL/uL (4.00-5.20); RED CELL DISTRIBUTION WIDTH 17.1 % (11.5-14.5); WHITE BLOOD COUNT (AUTO) 7.5 K/uL (4.5-11.0)
[2025-03-07 03:23] LABS: APPEARANCE,URINE CLEAR (CLEAR); GLUCOSE, URINE (UA) NEGATIVE (NEGATIVE); LEUKOCYTE ESTERASE ,URINE SMALL (NEGATIVE); NITRATE,URINE NEGATIVE (NEGATIVE); OCCULT BLOOD,URINE SMALL (NEGATIVE); PH,URINE DRUG SCREEN 7.0 (5.0-8.0); SPECIFIC GRAVITIY, URINE 1.009 (1.003-1.030)
[2025-03-07 03:40] LABS: CALCIUM, TOTAL 8.4 mg/dL (8.8-10.5); CREATININE 0.69 mg/dL (0.60-1.30); GLOMERULAR FILTR. RATE CALC > 60 mL/min (>60); GLUCOSE,RANDOM 102 mg/dL (70-110); SODIUM SERUM 136 mmol/L (136-145); UREA NITROGEN, BLOOD 7 mg/dL (7-18)
[2025-03-07 03:41] LABS: AMPHET/METH SCREEN,URINE NEGATIVE (NEGATIVE); BARBITURATE SCREEN, URINE NEGATIVE (NEGATIVE); CANNABINOID SCREEN,URINE NEGATIVE (NEGATIVE); COCAINE SCREEN,URINE NEGATIVE (NEGATIVE); METHADONE SCREEN, URINE NEGATIVE (NEGATIVE)
[2025-03-07 03:56] LABS: SQUAMOUS EPITHELIAL CELL,UR Moderate /LPF (None Seen)
[2025-03-07 04:25] LABS: ALCOHOL, URINE DRUG SCREEN NEGATIVE (NEGATIVE)
[2025-03-07 07:30] VITALS: O2SAT 95
[2025-03-07 10:27] VITALS: BP 126/86; PULSE 76; RESP 18; TEMP 97.4; O2SAT 96
[2025-03-07 20:40] VITALS: BP 119/75; PULSE 89; RESP 17; TEMP 98.7
[2025-03-07] MEDS ORDERED: BENZOCAINE/MENTHOL [CEPACOL] LOZENGE PO PRN (22:00)
[2025-03-07] MEDS ORDERED: ONDANSETRON 4 MG TABLET PO PRN (22:00)
[2025-03-07] MEDS ORDERED: ACETAMINOPHEN 325 MG TABLET PO PRN (22:00)
[2025-03-07] MEDS ORDERED: PETROLATUM,WHITE 28 GM JELLY TP PRN (22:00)
[2025-03-07] MEDS ORDERED: ALBUTEROL SULFATE HFA 90 MCG/PUFF 8 GM INHALER IH PRN (22:00)
[2025-03-07] MEDS ORDERED: BACITRACIN 28 GM OINTMENT TP PRN (22:00)
[2025-03-07] MEDS ORDERED: MAGNESIUM HYDROXIDE SUSPENSION 30 ML UDCUP PO PRN (22:00)
[2025-03-07] MEDS ORDERED: DOCUSATE SODIUM 100 MG CAPSULE PO PRN (22:00)
[2025-03-07] MEDS ORDERED: LOPERAMIDE HCL 2 MG CAPSULE PO PRN (22:00)
[2025-03-07] MEDS ORDERED: MAG HYDROX/ALUMINUM HYD/SIMETH ES 30 ML SUSPENSION UDCUP PO PRN (22:00)
[2025-03-07] MEDS ORDERED: OMEPRAZOLE 20 MG CAPSULE PO PRN (22:00)
[2025-03-07 22:08] VITALS: RESP 17
[2025-03-07] MEDS: IBUPROFEN 600 MG TABLET PO PRN (22:08)
[2025-03-07 23:08] VITALS: RESP 16
[2025-03-08 08:37] VITALS: RESP 16
[2025-03-08 16:43] VITALS: BP 133/78; PULSE 79; RESP 17; TEMP 97.5
[2025-03-08 20:20] VITALS: BP 113/82; PULSE 93; RESP 18; TEMP 98; O2SAT 96
[2025-03-09 08:14] VITALS: BP 122/78; PULSE 100; RESP 16; TEMP 97.9; O2SAT 96
[2025-03-09 20:18] VITALS: BP 112/75; PULSE 100; RESP 17; TEMP 97.2; O2SAT 94
[2025-03-10 08:38] VITALS: RESP 16
[2025-03-10 20:50] VITALS: BP 108/77; PULSE 79; RESP 15; TEMP 97.6; O2SAT 95
[2025-03-10] MEDS: ZOLPIDEM TARTRATE 10 MG TABLET PO PRN (21:38)
[2025-03-11 08:36] VITALS: RESP 18
[2025-03-11 17:50] VITALS: BP 116/71; PULSE 76; RESP 18; TEMP 97.9; O2SAT 95
[2025-03-11 18:54] VITALS: RESP 18
[2025-03-11 23:00] VITALS: BP 127/72; PULSE 89; RESP 18; TEMP 97.2; O2SAT 97
[2025-03-12] MEDS: NICOTINE 21 MG/24 HOUR PATCH TD PRN (00:24)
[2025-03-12 08:18] VITALS: RESP 16
[2025-03-12 20:26] VITALS: BP 122/74; PULSE 63; RESP 17; TEMP 98.1; O2SAT 97
[2025-03-13 08:32] VITALS: RESP 16
[2025-03-13 20:15] VITALS: BP 106/75; PULSE 67; RESP 16; TEMP 97.7; O2SAT 97
[2025-03-14 02:42] VITALS: BP 106/74; PULSE 87; RESP 17; TEMP 97.7; O2SAT 97
[2025-03-14 08:23] VITALS: BP 125/61; PULSE 86; RESP 18; TEMP 98.3; O2SAT 96
[2025-03-14 20:25] VITALS: BP 126/78; PULSE 75; RESP 17; TEMP 97.5; O2SAT 95
[2025-03-15 08:27] VITALS: BP 113/77; PULSE 67; RESP 17; TEMP 98.1; O2SAT 95
[2025-03-15 20:20] VITALS: BP 118/65; PULSE 77; RESP 16; TEMP 97.9; O2SAT 99
[2025-03-16 08:31] VITALS: BP 111/71; PULSE 62; RESP 18; TEMP 98; O2SAT 94
[2025-03-16 20:10] VITALS: BP 109/66; PULSE 74; RESP 16; TEMP 98.6; O2SAT 96
[2025-03-17 08:14] VITALS: BP 106/66; PULSE 83; RESP 16; TEMP 98.5; O2SAT 99
[2025-03-17] MEDS ORDERED: QUET100T PO (12:30)
[2025-03-17] MEDS ORDERED: QUET200T PO (12:31)
== END 2025-03-17 15:00 | disposition home or self-care (01) | DRG 885 ==
LOC: EMS 03-07 00:55 → B3A 03-07 06:46 → B2X 03-13 14:47
PROVIDERS: ADMIT Psychiatry & Neurology Psychiatry; ATTEND Psychiatry & Neurology Psychiatry
DX: F20.9 Schizophrenia, unspecified (principal); R45.851 Suicidal ideations; N39.0 Urinary tract infection, site not specified; I10 Essential (primary) hypertension; E78.5 Hyperlipidemia, unspecified; Z20.822 Contact with and (suspected) exposure to COVID-19; E03.9 Hypothyroidism, unspecified; G47.00 Insomnia, unspecified; F41.9 Anxiety disorder, unspecified; K59.00 Constipation, unspecified; F12.90 Cannabis use, unspecified, uncomplicated; F10.90 Alcohol use, unspecified, uncomplicated; E05.90 Thyrotoxicosis, unspecified without thyrotoxic crisis or storm; F32.A Depression, unspecified; Z87.891 Personal history of nicotine dependence
CPT/HCPCS: 80048; 80307; 81001; 85025; 87086; 99285; G0480

== ENCOUNTER 2025-05-05 19:44 | Inpatient (IN) | payer MEDICARE, MEDICAID ==
[~2025-05-05] VITALS: Ht 152.4 cm; Wt 71.2 kg
[~2025-05-05 19:44] MED LIST changes: +ASPI-1450 PO; +ATOR20TA65 PO; -BUSP5TAB20 PO; -FLUD.1 PO; -FLUO-418 PO; -LEVO137T24 PO; +LEVO25TA9 PO; +QUET100T PO; +QUET200T PO; -QUET300T2 PO; -SIMV-259 PO; +TRAZ-186 PO; -TRAZ150T80 PO
[2025-05-05 20:30] LABS: PLATELET COUNT (AUTO) 182 K/uL (150-450); RED BLOOD CELL COUNT(AUTO) 4.79 MIL/uL (4.00-5.20); RED CELL DISTRIBUTION WIDTH 21.0 % (11.5-14.5); WHITE BLOOD COUNT (AUTO) 5.5 K/uL (4.5-11.0)
[2025-05-05 20:37] LABS: CALCIUM, TOTAL 8.6 mg/dL (8.8-10.5); CREATININE 0.77 mg/dL (0.60-1.30); GLOMERULAR FILTR. RATE CALC > 60 mL/min (>60); GLUCOSE,RANDOM 99 mg/dL (70-110); SODIUM SERUM 135 mmol/L (136-145); UREA NITROGEN, BLOOD 13 mg/dL (7-18)
[2025-05-05 22:43] LABS: APPEARANCE,URINE CLEAR (CLEAR); GLUCOSE, URINE (UA) NEGATIVE (NEGATIVE); LEUKOCYTE ESTERASE ,URINE NEGATIVE (NEGATIVE); NITRATE,URINE NEGATIVE (NEGATIVE); OCCULT BLOOD,URINE SMALL (NEGATIVE); PH,URINE DRUG SCREEN 6.0 (5.0-8.0); SPECIFIC GRAVITIY, URINE 1.008 (1.003-1.030)
[2025-05-05 22:49] LABS: AMPHET/METH SCREEN,URINE NEGATIVE (NEGATIVE); BARBITURATE SCREEN, URINE NEGATIVE (NEGATIVE); CANNABINOID SCREEN,URINE NEGATIVE (NEGATIVE); COCAINE SCREEN,URINE NEGATIVE (NEGATIVE); METHADONE SCREEN, URINE NEGATIVE (NEGATIVE)
[2025-05-05 22:53] LABS: ALCOHOL, URINE DRUG SCREEN NEGATIVE (NEGATIVE)
[2025-05-05 23:05] LABS: SQUAMOUS EPITHELIAL CELL,UR Many /LPF (None Seen)
[2025-05-05 23:06] LABS: HYALINE CASTS, URINE 0-2 /LPF (None Seen)
[2025-05-06 02:35] LABS: COVID AG,FIA SOURCE NASAL SWAB
[2025-05-06] MEDS: POTASSIUM CHLORIDE 20 MEQ ER TABLET PO ONE ×2 (02:38→07:50)
[2025-05-06 02:39] LABS: SARS-COV2 (COVID) ANTIGEN,FIA Negative (Negative)
[2025-05-06 04:50] VITALS: BP 118/72; PULSE 63; RESP 18; TEMP 98.6; O2SAT 96
[2025-05-06 06:05] VITALS: BP 118/72; PULSE 63; RESP 18; TEMP 97.5; O2SAT 96
[2025-05-06] MEDS ORDERED: -PHARMACY VACCINE NOTE- MISC ONE (06:30)
[2025-05-06] MEDS ORDERED: INFLUENZA VIRUS VACCINE TVS (6MO+) 2025-26/PF 45 MCG/0.5 ML SYRINGE IM. ONE (06:30)
[2025-05-06] MEDS ORDERED: BENZOCAINE/MENTHOL [CEPACOL] LOZENGE PO PRN (07:15)
[2025-05-06] MEDS ORDERED: MAGNESIUM HYDROXIDE SUSPENSION 30 ML UDCUP PO PRN (07:15)
[2025-05-06] MEDS ORDERED: OMEPRAZOLE 20 MG CAPSULE PO PRN (07:15)
[2025-05-06] MEDS ORDERED: DOCUSATE SODIUM 100 MG CAPSULE PO PRN (07:15)
[2025-05-06] MEDS ORDERED: ACETAMINOPHEN 325 MG TABLET PO PRN (07:15)
[2025-05-06] MEDS ORDERED: BACITRACIN 28 GM OINTMENT TP PRN (07:15)
[2025-05-06] MEDS ORDERED: IBUPROFEN 600 MG TABLET PO PRN (07:15)
[2025-05-06] MEDS ORDERED: ALBUTEROL SULFATE HFA 90 MCG/PUFF 8 GM INHALER IH PRN (07:15)
[2025-05-06] MEDS ORDERED: MAG HYDROX/ALUMINUM HYD/SIMETH ES 30 ML SUSPENSION UDCUP PO PRN (07:15)
[2025-05-06] MEDS ORDERED: PETROLATUM,WHITE 28 GM JELLY TP PRN (07:15)
[2025-05-06] MEDS: LEVOTHYROXINE SODIUM 25 MCG TABLET PO SCH (07:50)
[2025-05-06 08:24] VITALS: BP 139/68; PULSE 68; RESP 19; TEMP 98; O2SAT 96
[2025-05-06] MEDS: ASPIRIN 81 MG CHEWABLE TABLET PO SCH (08:58)
[2025-05-06 10:58] VITALS: BP 124/63; PULSE 66; RESP 16; O2SAT 97
[2025-05-06] MEDS: NICOTINE 21 MG/24 HOUR PATCH TD PRN (11:55)
[2025-05-06 11:58] VITALS: RESP 16
[2025-05-06] MEDS: LOPERAMIDE HCL 2 MG CAPSULE PO PRN (14:42)
[2025-05-06] MEDS: ATORVASTATIN CALCIUM 20 MG TABLET PO SCH (20:03)
[2025-05-06 20:08] VITALS: BP 105/76; PULSE 68; RESP 17; TEMP 97.7; O2SAT 100
[2025-05-06] MEDS: ZOLPIDEM TARTRATE 10 MG TABLET PO PRN (23:48)
[2025-05-07] MEDS: LEVOTHYROXINE SODIUM 25 MCG TABLET PO SCH (06:13)
[2025-05-07 08:15] VITALS: BP 138/92; PULSE 70; RESP 17; TEMP 98.3; O2SAT 96
[2025-05-07 09:28] LABS: PLATELET COUNT (AUTO) 180 K/uL (150-450); RED BLOOD CELL COUNT(AUTO) 5.23 MIL/uL (4.00-5.20); RED CELL DISTRIBUTION WIDTH 21.2 % (11.5-14.5); WHITE BLOOD COUNT (AUTO) 5.6 K/uL (4.5-11.0)
[2025-05-07 09:51] LABS: ASPARTATE AMINOTRANSFERASE 20 U/L (15-37); CALCIUM, TOTAL 8.8 mg/dL (8.8-10.5); CHOL/HDL RATIO 7.1 (3.9-5.7); CREATININE 0.81 mg/dL (0.60-1.30); GLOMERULAR FILTR. RATE CALC > 60 mL/min (>60); GLUCOSE,RANDOM 91 mg/dL (70-110); LDL CHOL (CALC.) 274 mg/dL (0-130); SODIUM SERUM 135 mmol/L (136-145); TOTAL PROTEIN, SERUM 6.9 g/dL (6.4-8.2); UREA NITROGEN, BLOOD 17 mg/dL (7-18)
[2025-05-07 20:04] VITALS: RESP 18
[2025-05-08] MEDS: LEVOTHYROXINE SODIUM 50 MCG TABLET PO SCH (06:24)
[2025-05-08 08:28] VITALS: BP 115/74; PULSE 76; RESP 17; TEMP 97.6; O2SAT 96
[2025-05-08 08:44] LABS: APPEARANCE,URINE CLEAR (CLEAR); GLUCOSE, URINE (UA) NEGATIVE (NEGATIVE); LEUKOCYTE ESTERASE ,URINE NEGATIVE (NEGATIVE); NITRATE,URINE NEGATIVE (NEGATIVE); OCCULT BLOOD,URINE SMALL (NEGATIVE); PH,URINE DRUG SCREEN 5.0 (5.0-8.0); SPECIFIC GRAVITIY, URINE 1.014 (1.003-1.030)
[2025-05-08 08:51] LABS: AMPHET/METH SCREEN,URINE NEGATIVE (NEGATIVE); BARBITURATE SCREEN, URINE NEGATIVE (NEGATIVE); CANNABINOID SCREEN,URINE NEGATIVE (NEGATIVE); COCAINE SCREEN,URINE NEGATIVE (NEGATIVE); METHADONE SCREEN, URINE NEGATIVE (NEGATIVE)
[2025-05-08 08:52] LABS: ALCOHOL, URINE DRUG SCREEN NEGATIVE (NEGATIVE)
[2025-05-08 08:56] LABS: CALCIUM OXALATE CRYSTALS,UR Few /LPF (None Seen); SQUAMOUS EPITHELIAL CELL,UR Moderate /LPF (None Seen)
[2025-05-08 20:18] VITALS: BP 126/61; PULSE 72; RESP 18; TEMP 97.9; O2SAT 98
[2025-05-09 08:03] VITALS: BP 120/71; PULSE 75; RESP 16; TEMP 97.5; O2SAT 95
[2025-05-09] MEDS: CEPHALEXIN MONOHYDRATE 500 MG CAPSULE PO SCH (09:37)
[2025-05-09 20:16] VITALS: BP 110/74; PULSE 72; RESP 18; TEMP 97.6; O2SAT 97
[2025-05-10 08:07] VITALS: BP 109/72; PULSE 75; RESP 18; TEMP 98.1; O2SAT 100
[2025-05-10 12:58] VITALS: BP 111/77; RESP 18
[2025-05-10 21:20] VITALS: BP 100/70; PULSE 78; RESP 17; TEMP 97.7; O2SAT 96
[2025-05-11 01:09] VITALS: BP 103/63; PULSE 83; RESP 18; TEMP 98.1; O2SAT 96
[2025-05-11 08:15] VITALS: BP 125/93; PULSE 78; RESP 17; TEMP 97.9; O2SAT 97
[2025-05-11] MEDS: MUPIROCIN CALCIUM 2% 22 GM OINTMENT TP SCH (17:18)
[2025-05-11 20:04] VITALS: BP 115/94; PULSE 83; RESP 18; TEMP 98.9; O2SAT 97
[2025-05-12 08:00] VITALS: BP 104/69; PULSE 82; RESP 17; TEMP 98.2; O2SAT 96
[2025-05-12 22:56] VITALS: BP 98/67; PULSE 80; RESP 17; TEMP 97.2; O2SAT 96
[2025-05-13] VITALS (11 sets, daily range): BP systolic 85–114; BP diastolic 52–77; PULSE 62–83; RESP 17–18; TEMP 97.2–97.6; O2SAT 95–99
[2025-05-14] MEDS: ONDANSETRON 4 MG TABLET PO PRN (00:48)
[2025-05-14 00:51] VITALS: BP 121/70; PULSE 80; RESP 18; TEMP 98; O2SAT 95
[2025-05-14 09:25] VITALS: BP 107/64; PULSE 84; RESP 16; TEMP 97.8; O2SAT 97
[2025-05-14 21:17] VITALS: BP 122/70; PULSE 80; RESP 17; TEMP 98.4; O2SAT 97
[2025-05-15 10:32] VITALS: BP 125/71; PULSE 85; RESP 18; TEMP 98; O2SAT 96
[2025-05-15 21:56] VITALS: BP 103/73; PULSE 75; RESP 18; O2SAT 96
[2025-05-16 14:54] VITALS: BP 104/57; PULSE 78; RESP 18; TEMP 98.1; O2SAT 100
[2025-05-16 20:23] VITALS: BP 122/76; PULSE 78; RESP 18; TEMP 97.7; O2SAT 100
[2025-05-17 10:00] VITALS: RESP 16
[2025-05-17 20:54] VITALS: BP 99/56; PULSE 72; RESP 18; TEMP 97.6; O2SAT 99
[2025-05-18 09:24] VITALS: BP 95/65; PULSE 71; RESP 18; TEMP 97.2; O2SAT 96
[2025-05-18] MEDS ORDERED: ASPI-1450 PO (11:06)
[2025-05-18] MEDS ORDERED: LEVO50 PO (11:06)
== END 2025-05-18 15:30 | disposition home or self-care (01) | DRG 885 ==
LOC: EMS 19:44 → B2X 05-06 03:01 → 3EX 05-11 14:15
PROVIDERS: ADMIT Psychiatry & Neurology Psychiatry; ATTEND Psychiatry & Neurology Psychiatry
DX: F20.9 Schizophrenia, unspecified (principal); E03.9 Hypothyroidism, unspecified; N39.0 Urinary tract infection, site not specified; I10 Essential (primary) hypertension; F31.9 Bipolar disorder, unspecified; Z20.822 Contact with and (suspected) exposure to COVID-19; E87.6 Hypokalemia; F41.9 Anxiety disorder, unspecified; G47.00 Insomnia, unspecified; K59.00 Constipation, unspecified; F10.90 Alcohol use, unspecified, uncomplicated; E78.5 Hyperlipidemia, unspecified; F12.90 Cannabis use, unspecified, uncomplicated; Y90.0 Blood alcohol level of less than 20 mg/100 ml; Z87.891 Personal history of nicotine dependence
CPT/HCPCS: 80048; 80053; 80061; 80307; 81001; 83036; 84436; 84443; 85025; 87086; 90686; 97116; 97162; 97166; 97530; 99285; G0378; G0480; G0481; Q0162

== ENCOUNTER 2025-06-06 22:46 | Emergency (ER) | payer MEDICARE, MEDICAID ==
[~2025-06-06] VITALS: Ht 157.5 cm; Wt 65.0 kg
[~2025-06-06 22:46] MED LIST changes: -LEVO25TA9 PO; +LEVO50 PO
[2025-06-06 22:59] VITALS: TEMP 97.8
[2025-06-07 00:28] LABS: PLATELET COUNT (AUTO) 247 K/uL (150-450); RED BLOOD CELL COUNT(AUTO) 4.23 MIL/uL (4.00-5.20); RED CELL DISTRIBUTION WIDTH 16.4 % (11.5-14.5); WHITE BLOOD COUNT (AUTO) 14.9 K/uL (4.5-11.0)
[2025-06-07 00:48] LABS: CALCIUM, TOTAL 8.8 mg/dL (8.8-10.5); CREATININE 0.83 mg/dL (0.60-1.30); GLOMERULAR FILTR. RATE CALC > 60 mL/min (>60); GLUCOSE,RANDOM 131 mg/dL (70-110); SODIUM SERUM 135 mmol/L (136-145); UREA NITROGEN, BLOOD 25 mg/dL (7-18)
[2025-06-07 00:56] LABS: TROPONIN I-HIGH SENSITIVITY 8 ng/L (<51)
[2025-06-07 02:36] LABS: APPEARANCE,URINE CLEAR (CLEAR); GLUCOSE, URINE (UA) NEGATIVE (NEGATIVE); LEUKOCYTE ESTERASE ,URINE TRACE (NEGATIVE); NITRATE,URINE NEGATIVE (NEGATIVE); OCCULT BLOOD,URINE LARGE (NEGATIVE); SPECIFIC GRAVITIY, URINE 1.017 (1.003-1.030)
[2025-06-07 02:37] LABS: SQUAMOUS EPITHELIAL CELL,UR Few /LPF (None Seen)
[2025-06-07] MEDS: ACETAMINOPHEN 500 MG TABLET PO ONE (02:37)
[2025-06-07] MEDS ORDERED: TRAZ-184 PO (03:26)
[2025-06-07 05:37] VITALS: BP 156/59; PULSE 74; RESP 18; O2SAT 96
== END 2025-06-07 06:53 | disposition home or self-care (01) ==
LOC: EMS 23:48
DX: F41.9 Anxiety disorder, unspecified (principal); G47.00 Insomnia, unspecified; F31.9 Bipolar disorder, unspecified; I10 Essential (primary) hypertension; E03.9 Hypothyroidism, unspecified; F17.210 Nicotine dependence, cigarettes, uncomplicated; R06.02 Shortness of breath; Z88.5 Allergy status to narcotic agent; Z79.82 Long term (current) use of aspirin; Z79.899 Other long term (current) drug therapy
CPT/HCPCS: 71045; 80048; 81001; 83880; 84484; 85025; 93005; 99285; 36415-L1; 36415-TC

== ENCOUNTER 2025-06-11 21:08 | Emergency (ER) | payer MEDICARE, MEDICAID ==
[~2025-06-11] VITALS: Ht 152.4 cm; Wt 76.8 kg
[~2025-06-11 21:08] MED LIST changes: +CEPH-558 PO; +ROPI0.2535 PO; +TRAZ-184 PO
[2025-06-11 21:56] VITALS: TEMP 97.6
[2025-06-12 01:54] LABS: CALCIUM, TOTAL 9.0 mg/dL (8.8-10.5); CREATININE 1.02 mg/dL (0.60-1.30); GLOMERULAR FILTR. RATE CALC 54.0 mL/min (>60); GLUCOSE,RANDOM 113.0 mg/dL (70-110); SODIUM SERUM 132.0 mmol/L (136-145); UREA NITROGEN, BLOOD 19.0 mg/dL (7-18)
[2025-06-12 02:02] LABS: PLATELET COUNT (AUTO) 277 K/uL (150-450); RED BLOOD CELL COUNT(AUTO) 4.63 MIL/uL (4.00-5.20); RED CELL DISTRIBUTION WIDTH 16.7 % (11.5-14.5); WHITE BLOOD COUNT (AUTO) 10.0 K/uL (4.5-11.0)
[2025-06-12 02:29] VITALS: BP 104/54; PULSE 65; RESP 14; O2SAT 99
[2025-06-12] MEDS ORDERED: LORA1TAB25 PO (14:36)
== END 2025-06-12 02:45 | disposition home or self-care (01) ==
LOC: EMS 21:08
DX: F41.9 Anxiety disorder, unspecified (principal); E03.9 Hypothyroidism, unspecified; F20.9 Schizophrenia, unspecified; F31.9 Bipolar disorder, unspecified; I10 Essential (primary) hypertension; J44.9 Chronic obstructive pulmonary disease, unspecified; F17.210 Nicotine dependence, cigarettes, uncomplicated; Z79.82 Long term (current) use of aspirin; Z79.899 Other long term (current) drug therapy; Z88.5 Allergy status to narcotic agent
CPT/HCPCS: 99283; 80048; 85025; 36415; G0480

== ENCOUNTER 2025-06-12 13:48 | Emergency (ER) | payer MEDICARE, MEDICAID ==
[~2025-06-12] VITALS: Ht 152.4 cm; Wt 79.3 kg
[2025-06-12 13:57] VITALS: TEMP 98.4
[2025-06-12] MEDS ORDERED: LORA1TAB25 PO (14:36)
[2025-06-12 15:03] VITALS: BP 111/79; PULSE 77; RESP 20; O2SAT 98
== END 2025-06-12 15:04 | disposition home or self-care (01) ==
LOC: EMS 13:48
DX: F41.9 Anxiety disorder, unspecified (principal); F25.0 Schizoaffective disorder, bipolar type; E03.9 Hypothyroidism, unspecified; I10 Essential (primary) hypertension; R42 Dizziness and giddiness; J44.9 Chronic obstructive pulmonary disease, unspecified; F17.210 Nicotine dependence, cigarettes, uncomplicated; Z79.899 Other long term (current) drug therapy; Z79.82 Long term (current) use of aspirin; Z88.5 Allergy status to narcotic agent
CPT/HCPCS: 99283

== ENCOUNTER 2025-06-13 19:46 | Emergency (ER) | payer MEDICARE, MEDICAID ==
[~2025-06-13] VITALS: Ht 152.4 cm; Wt 76.8 kg
[~2025-06-13 19:46] MED LIST changes: +LORA1TAB25 PO; -TRAZ-186 PO
[2025-06-13 19:52] VITALS: TEMP 98
[2025-06-13 23:25] VITALS: BP 113/71; PULSE 69; RESP 15; O2SAT 98
== END 2025-06-13 23:26 | disposition home or self-care (01) ==
LOC: EMS 20:06
DX: F41.9 Anxiety disorder, unspecified (principal); R53.1 Weakness; E03.9 Hypothyroidism, unspecified; F31.9 Bipolar disorder, unspecified; I10 Essential (primary) hypertension; J44.9 Chronic obstructive pulmonary disease, unspecified; F17.210 Nicotine dependence, cigarettes, uncomplicated; Z79.82 Long term (current) use of aspirin; Z88.5 Allergy status to narcotic agent; Z79.899 Other long term (current) drug therapy
CPT/HCPCS: 99283

== ENCOUNTER 2025-06-14 18:51 | Emergency (ER) | payer MEDICARE, MEDICAID ==
[~2025-06-14] VITALS: Ht 152.4 cm; Wt 76.0 kg
[2025-06-14 18:54] VITALS: TEMP 98.2
[2025-06-14] MEDS: SODIUM CHLORIDE 0.9% 1,000 ML IV ONE (19:22)
[2025-06-14 19:51] LABS: PLATELET COUNT (AUTO) 277 K/uL (150-450); RED BLOOD CELL COUNT(AUTO) 4.12 MIL/uL (4.00-5.20); RED CELL DISTRIBUTION WIDTH 16.5 % (11.5-14.5); WHITE BLOOD COUNT (AUTO) 8.0 K/uL (4.5-11.0)
[2025-06-14 20:11] LABS: CALCIUM, TOTAL 8.1 mg/dL (8.8-10.5); CREATININE 1.11 mg/dL (0.60-1.30); GLOMERULAR FILTR. RATE CALC 49.0 mL/min (>60); GLUCOSE,RANDOM 124.0 mg/dL (70-110); SODIUM SERUM 138.0 mmol/L (136-145); UREA NITROGEN, BLOOD 18.0 mg/dL (7-18)
[2025-06-14 21:37] LABS: APPEARANCE,URINE HAZY (CLEAR); GLUCOSE, URINE (UA) NEGATIVE (NEGATIVE); LEUKOCYTE ESTERASE ,URINE SMALL (NEGATIVE); NITRATE,URINE NEGATIVE (NEGATIVE); OCCULT BLOOD,URINE SMALL (NEGATIVE); SPECIFIC GRAVITIY, URINE 1.020 (1.003-1.030)
[2025-06-14 21:43] LABS: SQUAMOUS EPITHELIAL CELL,UR Many /LPF (None Seen)
[2025-06-14 22:35] LABS: TROPONIN I-HIGH SENSITIVITY 6 ng/L (<51)
[2025-06-14 23:01] VITALS: BP 118/80; PULSE 63; RESP 18; O2SAT 96
== END 2025-06-15 00:12 | disposition home or self-care (01) ==
LOC: EMS 18:51
DX: F41.9 Anxiety disorder, unspecified (principal); F13.10 Sedative, hypnotic or anxiolytic abuse, uncomplicated; E03.9 Hypothyroidism, unspecified; F20.9 Schizophrenia, unspecified; F31.9 Bipolar disorder, unspecified; I10 Essential (primary) hypertension; J44.9 Chronic obstructive pulmonary disease, unspecified; F17.210 Nicotine dependence, cigarettes, uncomplicated; Z79.82 Long term (current) use of aspirin; Z88.5 Allergy status to narcotic agent; Z79.899 Other long term (current) drug therapy
CPT/HCPCS: 99285; 96360; 96361; 80048; 81001; 82962; 84484; 85025; 87086; 36415; 93005; G0480; J7030

== ENCOUNTER 2025-06-16 07:14 | Inpatient (IN) | payer MEDICARE, MEDICAID ==
[~2025-06-16] VITALS: Ht 154.9 cm; Wt 77.1 kg
[2025-06-17 23:18] VITALS: BP 106/57; PULSE 74; RESP 17; TEMP 97.5; O2SAT 96
[2025-06-18] MEDS ORDERED: ALBUTEROL SULFATE HFA 90 MCG/PUFF 8 GM INHALER IH PRN (08:00)
[2025-06-18] MEDS ORDERED: MAGNESIUM HYDROXIDE SUSPENSION 30 ML UDCUP PO PRN (08:00)
[2025-06-18] MEDS ORDERED: OMEPRAZOLE 20 MG CAPSULE PO PRN (08:00)
[2025-06-18] MEDS ORDERED: LOPERAMIDE HCL 2 MG CAPSULE PO PRN (08:00)
[2025-06-18] MEDS ORDERED: MAG HYDROX/ALUMINUM HYD/SIMETH ES 30 ML SUSPENSION UDCUP PO PRN (08:00)
[2025-06-18] MEDS ORDERED: ONDANSETRON 4 MG TABLET PO PRN (08:00)
[2025-06-18] MEDS ORDERED: ACETAMINOPHEN 325 MG TABLET PO PRN (08:00)
[2025-06-18] MEDS ORDERED: IBUPROFEN 600 MG TABLET PO PRN (08:00)
[2025-06-18] MEDS ORDERED: PETROLATUM,WHITE 28 GM JELLY TP PRN (08:00)
[2025-06-18] MEDS ORDERED: DOCUSATE SODIUM 100 MG CAPSULE PO PRN (08:00)
[2025-06-18] MEDS ORDERED: BACITRACIN 28 GM OINTMENT TP PRN (08:00)
[2025-06-18] MEDS ORDERED: BENZOCAINE/MENTHOL [CEPACOL] LOZENGE PO PRN (08:00)
[2025-06-18 08:11] VITALS: BP 127/82; PULSE 81; RESP 18; TEMP 98.1; O2SAT 95
[2025-06-18] MEDS: LEVOTHYROXINE SODIUM 50 MCG TABLET PO SCH (09:29)
[2025-06-18] MEDS: ASPIRIN 81 MG CHEWABLE TABLET PO SCH (09:29)
[2025-06-18 17:26] VITALS: RESP 18
[2025-06-18] MEDS: ATORVASTATIN CALCIUM 20 MG TABLET PO SCH (20:48)
[2025-06-18] MEDS: ROSUVASTATIN CALCIUM 10 MG TABLET PO SCH (20:48)
[2025-06-18 20:57] VITALS: BP 106/60; PULSE 82; RESP 18; TEMP 97.9; O2SAT 96
[2025-06-18] MEDS: ZOLPIDEM TARTRATE 10 MG TABLET PO PRN (22:06)
[2025-06-19 08:08] VITALS: BP 127/81; PULSE 80; RESP 18; TEMP 98.1; O2SAT 98
[2025-06-19 09:19] VITALS: RESP 18
[2025-06-19 17:16] VITALS: RESP 18
[2025-06-19 19:47] VITALS: BP 102/51; PULSE 78; RESP 16; O2SAT 94
[2025-06-20 08:33] VITALS: BP 108/62; PULSE 62; RESP 18; TEMP 98.1; O2SAT 95
[2025-06-20] MEDS: NICOTINE 14 MG/24 HOUR PATCH TD PRN (10:27)
[2025-06-20 20:09] VITALS: BP 115/66; PULSE 89; RESP 17; TEMP 97.7; O2SAT 98
[2025-06-20 23:07] LABS: HEPATITIS C AB (EIA) Non Reactive (Non Reactive)
[2025-06-21 08:24] VITALS: BP 121/58; PULSE 85; RESP 18; TEMP 98; O2SAT 98
[2025-06-21 20:08] VITALS: BP 112/88; PULSE 86; RESP 16; TEMP 97.9; O2SAT 98
[2025-06-22 08:24] VITALS: BP 108/77; PULSE 80; RESP 18; TEMP 98.1; O2SAT 95
[2025-06-22 20:07] VITALS: BP 143/69; PULSE 78; RESP 18; TEMP 97.8; O2SAT 97
[2025-06-23 08:19] VITALS: BP 105/60; PULSE 76; RESP 17; TEMP 96.7; O2SAT 98
[2025-06-23] MEDS: INFLUENZA VIRUS VACCINE TVS (6MO+) 2025-26/PF 45 MCG/0.5 ML SYRINGE IM. ONE (16:15)
[2025-06-23] MEDS: -PHARMACY VACCINE NOTE- MISC ONE (18:40)
[2025-06-23 20:07] VITALS: BP 130/68; PULSE 78; RESP 18; TEMP 98; O2SAT 99
[2025-06-24 08:02] VITALS: BP 114/73; PULSE 75; RESP 17; TEMP 98.4; O2SAT 98
[2025-06-24 20:04] VITALS: BP 117/64; PULSE 77; RESP 17; TEMP 98.1; O2SAT 97
[2025-06-25 08:09] VITALS: BP 102/75; PULSE 83; RESP 18; TEMP 98.4; O2SAT 96
[2025-06-25 20:18] VITALS: BP 124/62; PULSE 74; RESP 18; TEMP 98.3; O2SAT 100
[2025-06-26 08:17] VITALS: BP 123/64; PULSE 72; RESP 18; TEMP 97.9; O2SAT 95
[2025-06-26 20:06] VITALS: BP 61/61; PULSE 96; RESP 16; TEMP 98.1; O2SAT 96
[2025-06-27 08:18] VITALS: BP 97/60; PULSE 87; RESP 17; TEMP 97.1; O2SAT 98
[2025-06-27 09:30] VITALS: BP 101/62; PULSE 95; RESP 16
[2025-06-27] MEDS ORDERED: ROSU10TA98 PO (10:27)
[2025-06-28] MEDS ORDERED: HYDR25TA83 PO (01:10)
== END 2025-06-27 18:40 | disposition home or self-care (01) | DRG 885 ==
LOC: B2X 06-17 21:22
PROVIDERS: ADMIT Psychiatry & Neurology Psychiatry; ATTEND Psychiatry & Neurology Psychiatry
DX: F20.9 Schizophrenia, unspecified (principal); E03.9 Hypothyroidism, unspecified; F32.9 Major depressive disorder, single episode, unspecified; I10 Essential (primary) hypertension; E78.5 Hyperlipidemia, unspecified; F41.9 Anxiety disorder, unspecified; G47.00 Insomnia, unspecified; K59.00 Constipation, unspecified; Z79.899 Other long term (current) drug therapy
CPT/HCPCS: 86803; 87340; 87389; 90686

== ENCOUNTER 2025-06-27 23:48 | Emergency (ER) | payer MEDICARE, MEDICAID ==
[~2025-06-27] VITALS: Ht 157.5 cm; Wt 77.3 kg
[~2025-06-27 23:48] MED LIST changes: +ROSU10TA98 PO
[2025-06-28 00:08] VITALS: TEMP 97.9
[2025-06-28 01:00] LABS: PLATELET COUNT (AUTO) 244 K/uL (150-450); RED BLOOD CELL COUNT(AUTO) 4.02 MIL/uL (4.00-5.20); RED CELL DISTRIBUTION WIDTH 14.3 % (11.5-14.5); WHITE BLOOD COUNT (AUTO) 8.7 K/uL (4.5-11.0)
[2025-06-28 01:04] LABS: CALCIUM, TOTAL 8.8 mg/dL (8.8-10.5); CREATININE 0.71 mg/dL (0.60-1.30); GLOMERULAR FILTR. RATE CALC > 60 mL/min (>60); GLUCOSE,RANDOM 109 mg/dL (70-110); SODIUM SERUM 136 mmol/L (136-145); UREA NITROGEN, BLOOD 23 mg/dL (7-18)
[2025-06-28 01:08] LABS: APPEARANCE,URINE CLEAR (CLEAR); GLUCOSE, URINE (UA) NEGATIVE (NEGATIVE); LEUKOCYTE ESTERASE ,URINE MODERATE (NEGATIVE); NITRATE,URINE NEGATIVE (NEGATIVE); OCCULT BLOOD,URINE SMALL (NEGATIVE); PH,URINE DRUG SCREEN 7.0 (5.0-8.0); SPECIFIC GRAVITIY, URINE 1.009 (1.003-1.030)
[2025-06-28] MEDS ORDERED: HYDR25TA83 PO (01:10)
[2025-06-28 01:11] LABS: AMPHET/METH SCREEN,URINE NEGATIVE (NEGATIVE); BARBITURATE SCREEN, URINE NEGATIVE (NEGATIVE); CANNABINOID SCREEN,URINE NEGATIVE (NEGATIVE); COCAINE SCREEN,URINE NEGATIVE (NEGATIVE); METHADONE SCREEN, URINE NEGATIVE (NEGATIVE)
[2025-06-28 01:19] LABS: SQUAMOUS EPITHELIAL CELL,UR Few /LPF (None Seen)
[2025-06-28 01:24] LABS: ALCOHOL, URINE DRUG SCREEN NEGATIVE (NEGATIVE)
[2025-06-28 01:57] VITALS: BP 153/74; PULSE 75; RESP 14; O2SAT 98
== END 2025-06-28 04:45 | disposition home or self-care (01) ==
LOC: EMS 23:48
DX: F41.9 Anxiety disorder, unspecified (principal); R42 Dizziness and giddiness; E03.9 Hypothyroidism, unspecified; F20.9 Schizophrenia, unspecified; F31.9 Bipolar disorder, unspecified; I10 Essential (primary) hypertension; J44.9 Chronic obstructive pulmonary disease, unspecified; F17.210 Nicotine dependence, cigarettes, uncomplicated; Z79.82 Long term (current) use of aspirin; Z79.899 Other long term (current) drug therapy; Z88.5 Allergy status to narcotic agent
CPT/HCPCS: 99283; 80048; 81001; 85025; 36415; 80307; G0480

== ENCOUNTER 2025-07-02 20:09 | Emergency (ER) | payer MEDICARE, MEDICAID ==
[~2025-07-02] VITALS: Ht 152.4 cm; Wt 170.0 kg
[~2025-07-02 20:09] MED LIST changes: -CEPH-558 PO; +HYDR25TA83 PO; -LORA1TAB25 PO
[2025-07-02 20:11] VITALS: TEMP 98.2
[2025-07-02 21:05] LABS: PLATELET COUNT (AUTO) 268 K/uL (150-450); RED BLOOD CELL COUNT(AUTO) 4.09 MIL/uL (4.00-5.20); RED CELL DISTRIBUTION WIDTH 14.8 % (11.5-14.5); WHITE BLOOD COUNT (AUTO) 8.5 K/uL (4.5-11.0)
[2025-07-02 21:14] LABS: CALCIUM, TOTAL 8.4 mg/dL (8.8-10.5); CREATININE 0.93 mg/dL (0.60-1.30); GLOMERULAR FILTR. RATE CALC 60 mL/min (>60); GLUCOSE,RANDOM 113 mg/dL (70-110); SODIUM SERUM 135 mmol/L (136-145); UREA NITROGEN, BLOOD 18 mg/dL (7-18)
[2025-07-02 21:24] LABS: TROPONIN I-HIGH SENSITIVITY 8 ng/L (<51)
[2025-07-02 22:33] LABS: APPEARANCE,URINE CLEAR (CLEAR); GLUCOSE, URINE (UA) NEGATIVE (NEGATIVE); LEUKOCYTE ESTERASE ,URINE NEGATIVE (NEGATIVE); NITRATE,URINE NEGATIVE (NEGATIVE); OCCULT BLOOD,URINE SMALL (NEGATIVE); PH,URINE DRUG SCREEN 7.0 (5.0-8.0); SPECIFIC GRAVITIY, URINE 1.009 (1.003-1.030)
[2025-07-02 22:45] LABS: SQUAMOUS EPITHELIAL CELL,UR Few /LPF (None Seen); YEAST,URINE None Seen /HPF (None Seen)
[2025-07-02 22:46] LABS: ALCOHOL, URINE DRUG SCREEN NEGATIVE (NEGATIVE); AMPHET/METH SCREEN,URINE NEGATIVE (NEGATIVE); BARBITURATE SCREEN, URINE NEGATIVE (NEGATIVE); CANNABINOID SCREEN,URINE NEGATIVE (NEGATIVE); COCAINE SCREEN,URINE NEGATIVE (NEGATIVE); METHADONE SCREEN, URINE NEGATIVE (NEGATIVE)
[2025-07-03 05:12] VITALS: BP 124/52; PULSE 78; RESP 14; O2SAT 96
[2025-07-08] MEDS ORDERED: NITR-104 PO (04:46)
== END 2025-07-03 05:18 | disposition home or self-care (01) ==
LOC: EMS 20:09
DX: F41.1 Generalized anxiety disorder (principal); R53.1 Weakness; E03.9 Hypothyroidism, unspecified; F20.9 Schizophrenia, unspecified; F31.9 Bipolar disorder, unspecified; I10 Essential (primary) hypertension; I63.9 Cerebral infarction, unspecified; F17.210 Nicotine dependence, cigarettes, uncomplicated; J44.9 Chronic obstructive pulmonary disease, unspecified; Z79.82 Long term (current) use of aspirin; Z88.5 Allergy status to narcotic agent; Z79.899 Other long term (current) drug therapy
CPT/HCPCS: 99283; 80048; 81001; 84484; 85025; 36415; 80307; G0480; 51701; 51702; 99284